=== PATIENT | male | born 1965 | race Two or more races ===

== ENCOUNTER 2021-07-21 05:01 | Inpatient (IN) | payer MEDICAID ==
[~2021-07-21] VITALS: Ht 193 cm; Wt 106.8 kg
--- NOTE | 2021-07-21 05:39 | NUR ---
pT DIFFICULT BLOOD DRAW. APPEARS TO BE DEHYDRATED. MD HANSON WAITING UNTIL PT FINISHES FLUID BOLUS FROM EMS. WYMAN WILL BE PLACED.
[2021-07-21 06:34] LABS: CLARITY,URINE SLIGHTLY CLOUDY (Clear); COLOR,URINE YELLOW (Yellow); GLUCOSE, URINE NEGATIVE (Neg); KETONES,URINE TRACE mg/dl (Neg); LEUKOCYTE ESTERASE ,URINE NEGATIVE (Neg); NITRITES, URINE NEGATIVE (Neg); OCCULT BLOOD,URINE MODERATE (Neg); PH,URINE 6.5 (4.8-8.0); PROTEIN,URINE 100 mg/dl (Neg); UA COLLECTION TYPE FOLEY CATH; UROBILINOGEN,URINE >=8.0 E.U/dL (0.2-1.0)
[2021-07-21 06:39] LABS: URINE AMPHETAMINE SCREEN POSITIVE (Neg); URINE BARBITUATE SCREEN NEGATIVE (Neg); URINE BENZODIAZEPINES SCREEN NEGATIVE (Neg); URINE CANNABINOID SCREEN NEGATIVE (Neg); URINE COCAINE SCREEN NEGATIVE (Neg); URINE METHADONE SCREEN NEGATIVE (Neg); URINE OPIATE SCREEN NEGATIVE (Neg); URINE PHENCYCLIDINE SCREEN NEGATIVE (Neg)
[2021-07-21 06:39] LABS: ALANINE AMINOTRANSFERASE 33 U/L (12-78); ALBUMIN 1.9 G/DL (3.4-5.0); ALBUMIN/GLOBULIN RATIO 0.4 (1.1-1.5); ALKALINE PHOSPHATASE 155 IU/L (46-116); ANION GAP 10 (8-16); ASPARTATE AMINO TRANSFERASE 46 U/L (10-37); BILIRUBIN,TOTAL 0.8 MG/DL (0.1-1.0); BLOOD UREA NITROGEN 13 MG/DL (7-18); CHLORIDE 94 MMOL/L (99-107); GLUCOSE 155 MG/DL (70-104); POTASSIUM 3.1 MMOL/L (3.5-5.1); SODIUM 128 MMOL/L (135-145); TOTAL CARBON DIOXIDE 23.9 MMOL/L (24-32); TOTAL PROTEIN 6.6 G/DL (6.4-8.2); eGFR 77 ML/MIN
[2021-07-21 06:46] LABS: CREATINE KINASE 333 U/L (39-308); ETHANOL < 0.010 GM/DL (0.0-0.010)
[2021-07-21 06:51] LABS: BASOPHILS % (AUTO) 0.1 % (0-1); EOSINOPHILS % (AUTO) 0 % (0-6); HEMATOCRIT 35.9 % (42.0-52.0); HEMOGLOBIN 12.1 g/dl (14.0-17.9); LYMPHOCYTES # (AUTO) 0.5 X10'3 (1.1-4.8); LYMPHOCYTES % (AUTO) 3.5 % (21-51); MEAN CORPUSCULAR HEMOGLOBIN 30.8 PG (27.0-31.0); MEAN CORPUSCULAR HGB CONC 33.5 g/dL (33.0-36.5); MEAN PLATELET VOLUME 9.2 FL (7.4-10.4); MONOCYTES # (AUTO) 0.8 X10'3 (0-0.9); NEUTROPHILS # (AUTO) 12.4 X10'3 (1.8-7.7); NEUTROPHILS % (AUTO) 90.4 % (42-75); PLATELET COUNT 245 X10'3 (140-440); RED BLOOD COUNT 3.91 X10'6 (4.70-6.10); RED CELL DISTRIBUTION WIDTH 13.5 % (11.5-14.5); WHITE BLOOD COUNT 13.7 X10'3 (4.5-11.0)
[2021-07-21 06:53] LABS: SPERM FEW /HPF (NEGATIVE)
[2021-07-21 06:54] LABS: BACTERIA,URINE FEW /HPF (Neg); SQUAMOUS EPITHELIAL CELL,UR NONE SEEN /LPF (FEW); WBC,URINE 0-4 /HPF (0-4)
--- NOTE | 2021-07-21 07:48 | NUR ---
PATIENT'S GIRLFRIEND, MIRELA MCBRIDE, WITH CONTACT NUMBER [phone]
[2021-07-21] MEDS ORDERED: mag hydrox/Alum hydrox/simeth 30ml oral suspension PO PRN (07:50)
[2021-07-21] MEDS ORDERED: potassium Cl 20 mEq SR tablet PO PRN ×2 (07:50)
[2021-07-21] MEDS ORDERED: haloperidol lactate 5mg/ml inj IM PRN (07:50)
[2021-07-21] MEDS ORDERED: magnesium 4gm in 100ml NS 100 ML IV PRN (07:50)
[2021-07-21] MEDS ORDERED: magnesium 2GM in 50ml NS 50 ML IV PRN (07:50)
[2021-07-21] MEDS ORDERED: ondansetron/PF 4mg/2ml inj IV PRN (07:50)
[2021-07-21] MEDS ORDERED: potassium Cl 40MEQ/1/2NS 520ml 520 ML IV PRN ×2 (07:50)
[2021-07-21 07:54] LABS: TOTAL CELLS COUNTED 100
[2021-07-21 07:55] LABS: PLATELET ESTIMATE NORMAL
[2021-07-21] MEDS: docusate sod 100mg capsule PO SCH ×2 (08:00→20:16)
[2021-07-21] MEDS ORDERED: folic acid inj. 2 MG, thiamine inj. 100 MG, MVI, adult No.4 with vit. K 10 ML in dextro... IV SCH ×4 (08:00)
[2021-07-21] MEDS ORDERED: thiamine inj. 100 MG in normal saline 100ml IV soln 100 ML IV ONE (08:45)
[2021-07-21 09:16] LABS: D-DIMER 5.94 MG/L FEU (0-0.50)
--- NOTE | 2021-07-21 09:56 | NUR ---
cris [phone] (sister) please call when able
[2021-07-21] MEDS ORDERED: ASPI-10 PO (10:44)
[2021-07-21] MEDS ORDERED: ATOR40TA PO (10:44)
[2021-07-21] MEDS ORDERED: FOLI0.4T6 PO (10:44)
[2021-07-21] MEDS ORDERED: KEP500T PO (10:44)
[2021-07-21] MEDS: folic acid 1mg/0.2ml inj IV SCH (10:56)
[2021-07-21] MEDS: normal saline 1000ml 1,000 ML IV SCH ×2 (10:56→20:10)
[2021-07-21] MEDS: K and/or MAG REPLACEMENT MC SCH ×2 (12:41→20:00)
--- NOTE | 2021-07-21 15:10 | NUR ---
PATIENT'S SISTER, MARU, CALLED IN FOR CONDITION REPORT.
[2021-07-21] MEDS ORDERED: enoxaparin 40mg/0.4ml syringe SQ SCH (20:00)
[2021-07-21] MEDS: acetaminophen 325mg tablet PO PRN (20:07)
[2021-07-21] MEDS: atorvastatin 20mg tablet PO SCH (20:16)
[2021-07-21] MEDS: levetiracetam 250mg tablet PO SCH (20:16)
[2021-07-21] MEDS: enoxaparin 100mg/ml syringe SQ SCH (20:17)
[2021-07-22] MEDS: normal saline 1000ml 1,000 ML IV SCH ×2 (04:33→13:50)
[2021-07-22] MEDS: acetaminophen 325mg tablet PO PRN ×2 (05:49→16:16)
[2021-07-22] MEDS: K and/or MAG REPLACEMENT MC SCH ×2 (08:00→18:47)
[2021-07-22 08:18] LABS: BASOPHILS % (AUTO) 0.2 % (0-1); EOSINOPHILS % (AUTO) 0.1 % (0-6); HEMATOCRIT 40.1 % (42.0-52.0); HEMOGLOBIN 13.3 g/dl (14.0-17.9); LYMPHOCYTES # (AUTO) 0.8 X10'3 (1.1-4.8); LYMPHOCYTES % (AUTO) 4.4 % (21-51); MEAN CORPUSCULAR HEMOGLOBIN 30.5 PG (27.0-31.0); MEAN CORPUSCULAR HGB CONC 33.1 g/dL (33.0-36.5); MEAN CORPUSCULAR VOLUME 92.2 FL (78-98); MEAN PLATELET VOLUME 9.2 FL (7.4-10.4); MONOCYTES # (AUTO) 0.8 X10'3 (0-0.9); MONOCYTES % (AUTO) 4.2 % (2-12); NEUTROPHILS # (AUTO) 17.1 X10'3 (1.8-7.7); NEUTROPHILS % (AUTO) 91.1 % (42-75); PLATELET COUNT 330 X10'3 (140-440); RED BLOOD COUNT 4.35 X10'6 (4.70-6.10); RED CELL DISTRIBUTION WIDTH 13.6 % (11.5-14.5); WHITE BLOOD COUNT 18.8 X10'3 (4.5-11.0)
[2021-07-22 08:44] LABS: ALANINE AMINOTRANSFERASE 39 U/L (12-78); ALBUMIN 1.8 G/DL (3.4-5.0); ALBUMIN/GLOBULIN RATIO 0.3 (1.1-1.5); ALKALINE PHOSPHATASE 155 IU/L (46-116); AMYLASE 36 U/L (25-115); ANION GAP 13 (8-16); ASPARTATE AMINO TRANSFERASE 74 U/L (10-37); BILIRUBIN,TOTAL 0.9 MG/DL (0.1-1.0); BLOOD UREA NITROGEN 15 MG/DL (7-18); BUN/CREATININE RATIO 13.6 (5.4-32.0); CALCIUM 7.8 MG/DL (8.5-10.1); CHLORIDE 100 MMOL/L (99-107); CHOL/HDL RATIO 5.7 (0.00-4.99); CHOLESTEROL 57 MG/DL (0-200); CREATINE KINASE 468 U/L (39-308); GLUCOSE 127 MG/DL (70-104); HDL CHOLESTEROL 10 MG/DL (35-60); LDL CHOLESTEROL 26 MG/DL (50-100); LIPASE 103 U/L (73-393); MAGNESIUM 2.1 MG/DL (1.5-2.4); PHOSPHORUS 2.3 MG/DL (2.3-4.5); POTASSIUM 3.5 MMOL/L (3.5-5.1); SODIUM 134 MMOL/L (135-145); TOTAL CARBON DIOXIDE 21.2 MMOL/L (24-32); TOTAL PROTEIN 7.3 G/DL (6.4-8.2); TRIGLYCERIDES 110 MG/DL (20-135); eGFR 69 ML/MIN
[2021-07-22 08:50] VITALS: BP 125/77
[2021-07-22 08:57] LABS: PLATELET ESTIMATE NORMAL; TOTAL CELLS COUNTED 100; TOXIC GRANULATION 3+; TOXIC VACUOLATION 3+
[2021-07-22 08:58] LABS: LARGE PLATELETS FEW
[2021-07-22] MEDS: docusate sod 100mg capsule PO SCH ×2 (10:01→20:19)
[2021-07-22] MEDS: levetiracetam 250mg tablet PO SCH ×2 (10:02→20:20)
[2021-07-22 11:00] VITALS: BP 114/71
[2021-07-22] MEDS: thiamine inj. 100 MG in normal saline 100ml IV soln 100 ML IV SCH (13:09)
--- NOTE | 2021-07-22 14:04 | NUR ---
I received telephone orders from Dr. Keller for a heart healthy diet. Patient has carotid stent and is unable to tell me where the stent was placed. His girlfriend thought it was placed at [facility]. i called [facility] [email or web address] at [facility] and they had no record of it. Dr. Keller has been notified. He wanted me to call again tomorrow since today is a holiday. color laboratory technician has also been notified.
[2021-07-22] MEDS ORDERED: POTASSIUM BICARB 20meq eff tab 20 MEQ TABLET.EFF PO PRN ×2 (14:32→14:33)
[2021-07-22] MEDS: aspirin 81mg tab.chew PO SCH (14:43)
[2021-07-22] MEDS: folic acid 1mg/0.2ml inj IV SCH (14:43)
[2021-07-22 15:00] VITALS: BP 148/79
[2021-07-22] MEDS: CefTRIAXone/D5W-Rocephin 1gm 50 ML IV SCH (16:42)
[2021-07-22 18:00] VITALS: BP 130/92
--- NOTE | 2021-07-22 18:00 | NUR ---
Patient in room PCU 3017. I have received report from Nava COPPOLA and had the opportunity to ask questions and assume patient care.
--- NOTE | 2021-07-22 18:27 | NUR ---
Problems reprioritized. Patient report given, questions answered & plan of care reviewed with Freya COPPOLA.
[2021-07-22] MEDS: enoxaparin 100mg/ml syringe SQ SCH (20:20)
[2021-07-22] MEDS: atorvastatin 20mg tablet PO SCH (20:20)
[2021-07-22 22:00] VITALS: BP 136/92
[2021-07-23] MEDS: normal saline 1000ml 1,000 ML IV SCH ×2 (00:01→07:49)
[2021-07-23] MEDS: LORazepam 2 mg/ml vial IV PRN ×2 (00:10→05:03)
[2021-07-23 02:00] VITALS: BP 139/77
[2021-07-23] MEDS ORDERED: acetaminophen 325mg tablet PO ONE (05:05)
[2021-07-23] MEDS ORDERED: acetaminophen 1,000mg/100ml IV 100 ML IV PRN (05:30)
--- NOTE | 2021-07-23 05:35 | NUR ---
at 0500 patient has temp of 103.1F pulse of 131 bp 163/92. patient shaking and breathing at 36bpm. 02 at 91%. patient given 1gram acetaminophen per md order, ativan 2mg IVP and haldol 5mg IM. at 0515 restraints applied to BUE because began to tug at castillo and yanked out IV. cold packs applied to patient, patient placed on 4L NC at 95% and covers and sheets removed. attempt to reorient and reassure patient. pupils PERRLA patient awakes to name, tremors present. order obtained for BUE restraints. MD notified
--- NOTE | 2021-07-23 05:53 | NUR ---
patient sedated no longer tremring , restraints removed vitals improving temp 101.2F 118bpm 24bpm 117/69 94% on 4L NC.
--- NOTE | 2021-07-23 05:59 | NUR ---
pulse 105 patient sedated, restraints remain off.
--- NOTE | 2021-07-23 06:10 | NUR ---
Patient in room PCU 3017. I have received report from Freya COPPOLA and had the opportunity to ask questions and assume patient care.
[2021-07-23 06:48] LABS: BASOPHILS % (AUTO) 0.1 % (0-1); EOSINOPHILS % (AUTO) 0.1 % (0-6); HEMATOCRIT 34.9 % (42.0-52.0); HEMOGLOBIN 11.7 g/dl (14.0-17.9); LYMPHOCYTES # (AUTO) 0.7 X10'3 (1.1-4.8); LYMPHOCYTES % (AUTO) 4.2 % (21-51); MEAN CORPUSCULAR HEMOGLOBIN 31.1 PG (27.0-31.0); MEAN CORPUSCULAR HGB CONC 33.6 g/dL (33.0-36.5); MEAN CORPUSCULAR VOLUME 92.7 FL (78-98); MONOCYTES # (AUTO) 0.7 X10'3 (0-0.9); MONOCYTES % (AUTO) 4.4 % (2-12); NEUTROPHILS # (AUTO) 14.8 X10'3 (1.8-7.7); NEUTROPHILS % (AUTO) 91.2 % (42-75); PLATELET COUNT 287 X10'3 (140-440); RED BLOOD COUNT 3.76 X10'6 (4.70-6.10); RED CELL DISTRIBUTION WIDTH 13.8 % (11.5-14.5); WHITE BLOOD COUNT 16.2 X10'3 (4.5-11.0)
[2021-07-23 07:00] VITALS: BP 115/68
[2021-07-23] MEDS: docusate sod 100mg capsule PO SCH ×2 (07:48→20:25)
[2021-07-23] MEDS: levetiracetam 250mg tablet PO SCH ×2 (07:48→20:25)
[2021-07-23] MEDS: thiamine inj. 100 MG in normal saline 100ml IV soln 100 ML IV SCH (07:48)
[2021-07-23] MEDS: CefTRIAXone/D5W-Rocephin 1gm 50 ML IV SCH (07:48)
[2021-07-23] MEDS: aspirin 81mg tab.chew PO SCH (07:48)
[2021-07-23] MEDS: K and/or MAG REPLACEMENT MC SCH ×2 (08:00→20:24)
[2021-07-23] MEDS: folic acid 1mg/0.2ml inj IV SCH (08:30)
[2021-07-23 10:21] LABS: ALANINE AMINOTRANSFERASE 54 U/L (12-78); ALBUMIN 1.5 G/DL (3.4-5.0); ALBUMIN/GLOBULIN RATIO 0.3 (1.1-1.5); ALKALINE PHOSPHATASE 158 IU/L (46-116); AMYLASE 35 U/L (25-115); ANION GAP 11 (8-16); ASPARTATE AMINO TRANSFERASE 109 U/L (10-37); BILIRUBIN,TOTAL 0.6 MG/DL (0.1-1.0); BLOOD UREA NITROGEN 20 MG/DL (7-18); BUN/CREATININE RATIO 15.5 (5.4-32.0); CALCIUM 7.2 MG/DL (8.5-10.1); CHLORIDE 100 MMOL/L (99-107); CREATINE KINASE 255 U/L (39-308); CREATININE 1.29 MG/DL (0.60-1.10); GLUCOSE 147 MG/DL (70-104); LIPASE 112 U/L (73-393); MAGNESIUM 2.1 MG/DL (1.5-2.4); PHOSPHORUS 2.2 MG/DL (2.3-4.5); POTASSIUM 3.5 MMOL/L (3.5-5.1); SODIUM 134 MMOL/L (135-145); TOTAL CARBON DIOXIDE 23.1 MMOL/L (24-32); TOTAL PROTEIN 6.9 G/DL (6.4-8.2); eGFR 58 ML/MIN
[2021-07-23 12:00] VITALS: BP 140/83
--- NOTE | 2021-07-23 13:39 | NUR ---
PAGER ID: [phone] MESSAGE: TOY on [phone], ON MY END IT SHOWS THAT CTA WAS CANCELLED PER DR. RALPH, PATIENT UNABLE TO HOLD STILL. DO YOU WANT TO REORDER CTA
[2021-07-23 15:00] VITALS: BP 131/82
[2021-07-23] MEDS ORDERED: iohexol 350MG/ML 100ml bottle IV ONE (15:58)
[2021-07-23 18:00] VITALS: BP 119/71
--- NOTE | 2021-07-23 18:00 | NUR ---
Patient in room PCU 3017. I have received report from naveen chacko and had the opportunity to ask questions and assume patient care.
--- NOTE | 2021-07-23 18:26 | NUR ---
Problems reprioritized. Patient report given, questions answered & plan of care reviewed with Freya COPPOLA.
--- NOTE | 2021-07-23 20:15 | NUR ---
patient resltess, ativan 2mg IV dc'd MD mata notified, patient given 1500cc cold water, patient drinks wuickly. sheets removed, patient reassured. orders ativan 1mg [id number] states that she will put in the order. labs reviewed with md joce boyd dimer 5.94 wbc 16.2 hb 11.7 pt 132. inr 1.3. reviews ct, no new orders given other than ativan order
[2021-07-23] MEDS: enoxaparin 40mg/0.4ml syringe SQ SCH (20:25)
[2021-07-23] MEDS: atorvastatin 20mg tablet PO SCH (20:26)
[2021-07-23] MEDS: lactobacillus rhamnosus 10,000 MMU CELLS/CAPSULE PO SCH (20:26)
[2021-07-23] MEDS: haloperidol 5mg tablet PO PRN (20:27)
[2021-07-23] MEDS: acetaminophen 325mg tablet PO PRN (21:27)
[2021-07-24] VITALS (7 sets, daily range): BP systolic 123–180; BP diastolic 84–104
[2021-07-24] MEDS: acetaminophen 325mg tablet PO PRN ×3 (02:41→13:15)
[2021-07-24] MEDS: haloperidol 5mg tablet PO PRN ×2 (02:41→08:00)
--- NOTE | 2021-07-24 03:08 | NUR ---
temp at 100.8 patient slightly restless, acetaminophen given and haloperidal 650mg PO. patient given 800cc water and two cups of jell o
[2021-07-24] MEDS: normal saline 1000ml 1,000 ML IV SCH (04:17)
[2021-07-24 06:03] LABS: BASOPHILS % (AUTO) 0.3 % (0-1); EOSINOPHILS % (AUTO) 0.2 % (0-6); HEMATOCRIT 33.1 % (42.0-52.0); LYMPHOCYTES # (AUTO) 0.9 X10'3 (1.1-4.8); LYMPHOCYTES % (AUTO) 5.8 % (21-51); MEAN CORPUSCULAR HEMOGLOBIN 30.7 PG (27.0-31.0); MEAN CORPUSCULAR HGB CONC 33.1 g/dL (33.0-36.5); MEAN CORPUSCULAR VOLUME 92.7 FL (78-98); MEAN PLATELET VOLUME 9.3 FL (7.4-10.4); MONOCYTES # (AUTO) 0.7 X10'3 (0-0.9); MONOCYTES % (AUTO) 4.6 % (2-12); NEUTROPHILS # (AUTO) 14.5 X10'3 (1.8-7.7); NEUTROPHILS % (AUTO) 89.1 % (42-75); PLATELET COUNT 305 X10'3 (140-440); RED BLOOD COUNT 3.57 X10'6 (4.70-6.10); WHITE BLOOD COUNT 16.2 X10'3 (4.5-11.0)
[2021-07-24 06:20] LABS: ALANINE AMINOTRANSFERASE 45 U/L (12-78); ALBUMIN 1.4 G/DL (3.4-5.0); ALBUMIN/GLOBULIN RATIO 0.3 (1.1-1.5); ALKALINE PHOSPHATASE 161 IU/L (46-116); AMYLASE 33 U/L (25-115); ANION GAP 9 (8-16); ASPARTATE AMINO TRANSFERASE 75 U/L (10-37); BILIRUBIN,TOTAL 0.7 MG/DL (0.1-1.0); BLOOD UREA NITROGEN 17 MG/DL (7-18); BUN/CREATININE RATIO 16.3 (5.4-32.0); CALCIUM 7.3 MG/DL (8.5-10.1); CHLORIDE 103 MMOL/L (99-107); CREATINE KINASE 188 U/L (39-308); CREATININE 1.04 MG/DL (0.60-1.10); GLUCOSE 154 MG/DL (70-104); LIPASE 102 U/L (73-393); MAGNESIUM 2.1 MG/DL (1.5-2.4); POTASSIUM 3.4 MMOL/L (3.5-5.1); SODIUM 136 MMOL/L (135-145); TOTAL CARBON DIOXIDE 23.9 MMOL/L (24-32); TOTAL PROTEIN 6.8 G/DL (6.4-8.2); eGFR 74 ML/MIN
[2021-07-24] MEDS: thiamine inj. 100 MG in normal saline 100ml IV soln 100 ML IV SCH (08:00)
[2021-07-24] MEDS: docusate sod 100mg capsule PO SCH ×2 (08:00→20:00)
[2021-07-24] MEDS: levetiracetam 250mg tablet PO SCH ×2 (08:00→21:03)
[2021-07-24] MEDS: K and/or MAG REPLACEMENT MC SCH ×2 (08:00→20:00)
[2021-07-24] MEDS: aspirin 81mg tab.chew PO SCH (08:00)
[2021-07-24] MEDS: lactobacillus rhamnosus 10,000 MMU CELLS/CAPSULE PO SCH ×2 (08:00→21:04)
[2021-07-24] MEDS: CefTRIAXone/D5W-Rocephin 1gm 50 ML IV SCH (10:35)
[2021-07-24] MEDS: folic acid 1mg/0.2ml inj IV SCH (11:24)
--- NOTE | 2021-07-24 11:34 | NUR ---
PAGER ID: [phone] MESSAGE: Room 3017A. Tylenol did not help - ax temp 102.7. Cooling measures in place. Wanda? Thanks, Shanon [phone]
--- NOTE | 2021-07-24 12:50 | NUR ---
Per MD - reorder covid test PCR send out. Ordered but was processed as rapid which is negative - reordered send out. Pending results.
[2021-07-24] MEDS ORDERED: potassium Cl 40MEQ/1/2NS 520ml 520 ML IV PRN (13:35)
[2021-07-24] MEDS ORDERED: POTASSIUM BICARB 20meq eff tab 20 MEQ TABLET.EFF PO PRN ×2 (13:35)
[2021-07-24] MEDS: LORazepam 2 mg/ml vial IV PRN ×2 (17:25→23:06)
--- NOTE | 2021-07-24 18:30 | NUR ---
rickey concepcion picked up prior to shift change; pt not able to report what he ate Addendum: 07/25/21 at 0450 by Carolyn Sanchez RN Amended: Links added.
--- NOTE | 2021-07-24 19:23 | NUR ---
Hourly rounding throughout shift - pt is able to repositions self throughout shift.
--- NOTE | 2021-07-24 19:24 | NUR ---
Problems reprioritized. Patient report given, questions answered & plan of care reviewed with Evelyne RN.
[2021-07-24] MEDS: atorvastatin 20mg tablet PO SCH (21:04)
[2021-07-24] MEDS: enoxaparin 40mg/0.4ml syringe SQ SCH (21:05)
[2021-07-25] MEDS: normal saline 1000ml 1,000 ML IV SCH ×2 (00:17→15:31)
[2021-07-25 02:30] VITALS: BP 149/90
[2021-07-25] MEDS: acetaminophen 325mg tablet PO PRN (02:48)
[2021-07-25] MEDS: LORazepam 2 mg/ml vial IV PRN (03:04)
[2021-07-25 06:03] LABS: BASOPHILS # (AUTO) 0.1 X10'3 (0-0.2); BASOPHILS % (AUTO) 0.6 % (0-1); EOSINOPHILS % (AUTO) 0.1 % (0-6); HEMATOCRIT 35.7 % (42.0-52.0); HEMOGLOBIN 11.7 g/dl (14.0-17.9); LYMPHOCYTES % (AUTO) 4.9 % (21-51); MEAN CORPUSCULAR HEMOGLOBIN 30.7 PG (27.0-31.0); MEAN CORPUSCULAR HGB CONC 32.7 g/dL (33.0-36.5); MEAN CORPUSCULAR VOLUME 93.8 FL (78-98); MEAN PLATELET VOLUME 9.2 FL (7.4-10.4); MONOCYTES # (AUTO) 0.9 X10'3 (0-0.9); MONOCYTES % (AUTO) 4.6 % (2-12); NEUTROPHILS # (AUTO) 17.6 X10'3 (1.8-7.7); NEUTROPHILS % (AUTO) 89.8 % (42-75); PLATELET COUNT 345 X10'3 (140-440); RED BLOOD COUNT 3.81 X10'6 (4.70-6.10); RED CELL DISTRIBUTION WIDTH 14.1 % (11.5-14.5); WHITE BLOOD COUNT 19.7 X10'3 (4.5-11.0)
[2021-07-25 06:34] LABS: ALANINE AMINOTRANSFERASE 43 U/L (12-78); ALBUMIN 1.4 G/DL (3.4-5.0); ALBUMIN/GLOBULIN RATIO 0.2 (1.1-1.5); ALKALINE PHOSPHATASE 148 IU/L (46-116); AMYLASE 38 U/L (25-115); ANION GAP 11 (8-16); ASPARTATE AMINO TRANSFERASE 75 U/L (10-37); BILIRUBIN,TOTAL 0.9 MG/DL (0.1-1.0); BLOOD UREA NITROGEN 20 MG/DL (7-18); BUN/CREATININE RATIO 21.1 (5.4-32.0); CALCIUM 7.3 MG/DL (8.5-10.1); CHLORIDE 105 MMOL/L (99-107); CREATININE 0.95 MG/DL (0.60-1.10); GLUCOSE 118 MG/DL (70-104); LIPASE 91 U/L (73-393); MAGNESIUM 2.2 MG/DL (1.5-2.4); PHOSPHORUS 3.9 MG/DL (2.3-4.5); POTASSIUM 3.6 MMOL/L (3.5-5.1); SODIUM 140 MMOL/L (135-145); TOTAL CARBON DIOXIDE 24.1 MMOL/L (24-32); TOTAL PROTEIN 7.5 G/DL (6.4-8.2); eGFR 82 ML/MIN
[2021-07-25 07:00] VITALS: BP 155/99
[2021-07-25] MEDS: K and/or MAG REPLACEMENT MC SCH ×2 (08:00→20:00)
--- NOTE | 2021-07-25 09:30 | NUR ---
Dr. Willams to see pt. pt cont. obtunded. RR tachypnic per baseline. new orders for ABG stat, CXR stat. pt positioned semi folHARRISON summers at 45 degrees.
[2021-07-25] MEDS: folic acid 1mg/0.2ml inj IV SCH (09:37)
[2021-07-25] MEDS: CefTRIAXone/D5W-Rocephin 1gm 50 ML IV SCH (09:38)
[2021-07-25] MEDS: lactobacillus rhamnosus 10,000 MMU CELLS/CAPSULE PO SCH ×2 (09:38→21:42)
[2021-07-25] MEDS: aspirin 81mg tab.chew PO SCH (09:38)
[2021-07-25] MEDS: docusate sod 100mg capsule PO SCH ×2 (09:38→21:42)
[2021-07-25] MEDS: levetiracetam 250mg tablet PO SCH ×2 (09:38→21:42)
--- NOTE | 2021-07-25 10:11 | NUR ---
RT paged. "re: Roderick Mcmullen: [id number]: Magu order stat ABG and stat breath tx. CXR just completed. pt RR 32/4LPM/NC/O2. Thanks,Una LUI"
--- NOTE | 2021-07-25 10:24 | NUR ---
Paged Dr. Willams d/t breathing tx: RT unable to give. PAGER ID: [phone] MESSAGE: RE: Roderick Mcmullen: [id number]: Per RT, breathing tx can not be done on pt's with pending covid tests for R/O covid, due to breathing tx could spread COVID virus if pt positive. -Please AdviseUna #[phone]
[2021-07-25 10:38] LABS: ABG BASE EXCESS 1.2 mmol/L (-2.0-2.0); ABG HCO3 22.8 mmol/L (22.0-26.0); ABG OXYGEN SATURATION 94.5 % (94-97); ABG PCO2 (T) 28.2 mmHg (35.0-48.0); ABG PO2 (T) 72.6 mmHg (75.0-100.0); ALLEN'S TEST POSITIVE; FCOHb 0.3 % (0.0-3.9); FLOW 4 L/min; FMetHb 0.4 % (0.0-1.5); FO2Hb 93.8 % (94-97); PATIENT TEMPERATURE 37.3; TOTAL HEMOGLOBIN 12.7 G/dl (14.0-18.0)
[2021-07-25 10:49] LABS: LACTIC SEPSIS 2.6 MMOL/L (0.4-2.0)
[2021-07-25 11:00] VITALS: BP 139/79
--- NOTE | 2021-07-25 11:18 | NUR ---
Initial: Pt admitted w/ worsening confusion and weakness per EMR. RN reports pt is obtunded at times though alert during others. Pt is mostly able to feed themselves but may need assistance occasionally; pt does have R sided weakness per RN. Pt able to eat avg 47% x 6 meals on Heart Healthy/SB6 diet, though was up to 75% 07/24. LBM 07/24 noted to be liquid. No nutritional intervention at this time, will continue to monitor. Recs: 1. Continue Heart healthy/SB6 thins diet as tolerated; texture per ST 2. Bowel care per rx 3. Weekly wts Addendum: 07/25/21 at [address] Amended: Links added.
[2021-07-25] MEDS: thiamine inj. 100 MG in normal saline 100ml IV soln 100 ML IV SCH (11:28)
[2021-07-25 15:00] VITALS: BP 140/72
[2021-07-25 15:18] LABS: CLARITY,URINE SLIGHTLY CLOUDY (Clear); COLOR,URINE YELLOW (Yellow); GLUCOSE, URINE NEGATIVE (Neg); KETONES,URINE NEGATIVE (Neg); LEUKOCYTE ESTERASE ,URINE NEGATIVE (Neg); NITRITES, URINE NEGATIVE (Neg); OCCULT BLOOD,URINE MODERATE (Neg); PROTEIN,URINE 30 mg/dl (Neg)
[2021-07-25 15:21] LABS: BACTERIA,URINE NONE SEEN /HPF (Neg); MUCUS STRANDS FEW /LPF (Neg); RENAL CELLS, URINE FEW /HPF; SQUAMOUS EPITHELIAL CELL,UR FEW /LPF (FEW); UA COLLECTION TYPE FOLEY CATH; WBC,URINE 0-4 /HPF (0-4)
[2021-07-25 18:00] VITALS: BP 150/97
--- NOTE | 2021-07-25 18:08 | NUR ---
Patient in room PCU 3017. I have received report from Evelyne RN and had the opportunity to ask questions and assume patient care.
--- NOTE | 2021-07-25 18:38 | NUR ---
Problems reprioritized. Patient report given, questions answered & plan of care reviewed with Viktoriya COPPOLA. Pt alert at this time, high fowlers, supported with pillows, breathing tachypnic at baseline, /4LPM. pt working on dinner independently. no s/sx acute distress
--- NOTE | 2021-07-25 19:01 | NUR ---
Patient in room PCU 3017. I have received report from DAVIDE COPPOLA and had the opportunity to ask questions and assume patient care.
[2021-07-25] MEDS: albuterol 2.5 MG/3 ML nebule NEB SCH (20:00)
[2021-07-25] MEDS: atorvastatin 20mg tablet PO SCH (21:42)
[2021-07-25] MEDS: enoxaparin 40mg/0.4ml syringe SQ SCH (21:43)
[2021-07-25] MEDS: methylPREDNISolone sod succ 125mg/2ml vial IV SCH (21:43)
[2021-07-25 22:00] VITALS: BP 146/89
[2021-07-26] MEDS: albuterol 2.5 MG/3 ML nebule NEB SCH ×7 (00:31→23:16)
[2021-07-26] MEDS: normal saline 1000ml 1,000 ML IV SCH ×3 (00:45→23:30)
[2021-07-26 02:00] VITALS: BP 139/86
[2021-07-26 06:00] VITALS: BP 157/98
--- NOTE | 2021-07-26 06:25 | NUR ---
Problems reprioritized. Patient report given, questions answered & plan of care reviewed with DANIEL COPPOLA.
--- NOTE | 2021-07-26 06:30 | NUR ---
Patient in room PCU 3017. I have received report from ANAT Sadler and had the opportunity to ask questions and assume patient care.
[2021-07-26 06:52] LABS: BASOPHILS # (AUTO) 0.1 X10'3 (0-0.2); BASOPHILS % (AUTO) 0.3 % (0-1); EOSINOPHILS % (AUTO) 0 % (0-6); HEMATOCRIT 34.5 % (42.0-52.0); HEMOGLOBIN 11.4 g/dl (14.0-17.9); LYMPHOCYTES # (AUTO) 0.4 X10'3 (1.1-4.8); LYMPHOCYTES % (AUTO) 2.3 % (21-51); MEAN CORPUSCULAR HEMOGLOBIN 30.6 PG (27.0-31.0); MEAN CORPUSCULAR HGB CONC 33.2 g/dL (33.0-36.5); MEAN CORPUSCULAR VOLUME 92.3 FL (78-98); MEAN PLATELET VOLUME 9.1 FL (7.4-10.4); MONOCYTES # (AUTO) 0.3 X10'3 (0-0.9); MONOCYTES % (AUTO) 1.6 % (2-12); NEUTROPHILS # (AUTO) 17.1 X10'3 (1.8-7.7); NEUTROPHILS % (AUTO) 95.8 % (42-75); PLATELET COUNT 347 X10'3 (140-440); RED BLOOD COUNT 3.74 X10'6 (4.70-6.10); WHITE BLOOD COUNT 17.8 X10'3 (4.5-11.0)
[2021-07-26 07:21] LABS: ALANINE AMINOTRANSFERASE 46 U/L (12-78); ALBUMIN 1.3 G/DL (3.4-5.0); ALBUMIN/GLOBULIN RATIO 0.2 (1.1-1.5); ALKALINE PHOSPHATASE 135 IU/L (46-116); AMYLASE 31 U/L (25-115); ANION GAP 8 (8-16); ASPARTATE AMINO TRANSFERASE 79 U/L (10-37); BILIRUBIN,TOTAL 0.8 MG/DL (0.1-1.0); BLOOD UREA NITROGEN 22 MG/DL (7-18); BUN/CREATININE RATIO 28.2 (5.4-32.0); CALCIUM 7.3 MG/DL (8.5-10.1); CHLORIDE 104 MMOL/L (99-107); CREATININE 0.78 MG/DL (0.60-1.10); GLUCOSE 149 MG/DL (70-104); LIPASE 72 U/L (73-393); MAGNESIUM 2.1 MG/DL (1.5-2.4); PHOSPHORUS 4.2 MG/DL (2.3-4.5); POTASSIUM 4.2 MMOL/L (3.5-5.1); SODIUM 134 MMOL/L (135-145); TOTAL CARBON DIOXIDE 22.5 MMOL/L (24-32); TOTAL PROTEIN 7.4 G/DL (6.4-8.2); eGFR > 90 ML/MIN
[2021-07-26] MEDS: LORazepam 2 mg/ml vial IV PRN (07:34)
[2021-07-26] MEDS: docusate sod 100mg capsule PO SCH ×2 (08:00→21:00)
[2021-07-26] MEDS: K and/or MAG REPLACEMENT MC SCH ×2 (08:00→20:00)
[2021-07-26] MEDS: azithromycin/NS 500mg/250ml 250 ML IV SCH (09:25)
[2021-07-26] MEDS: folic acid 1mg/0.2ml inj IV SCH (09:25)
[2021-07-26] MEDS: thiamine inj. 100 MG in normal saline 100ml IV soln 100 ML IV SCH (09:25)
[2021-07-26] MEDS: methylPREDNISolone sod succ 125mg/2ml vial IV SCH ×2 (09:26→21:35)
[2021-07-26] MEDS: lactobacillus rhamnosus 10,000 MMU CELLS/CAPSULE PO SCH ×2 (09:26→21:34)
[2021-07-26] MEDS: levetiracetam 250mg tablet PO SCH ×2 (09:26→21:33)
[2021-07-26] MEDS: CefTRIAXone/D5W-Rocephin 1gm 50 ML IV SCH (09:26)
[2021-07-26] MEDS: aspirin 81mg tab.chew PO SCH (09:26)
[2021-07-26 09:41] LABS: CREATINE KINASE 186 U/L (39-308)
[2021-07-26 11:00] VITALS: BP 132/87
[2021-07-26 15:00] VITALS: BP 132/90
[2021-07-26 18:00] VITALS: BP 138/68
--- NOTE | 2021-07-26 18:48 | NUR ---
Problems reprioritized. Patient report given, questions answered & plan of care reviewed with ANAT Watkins.
[2021-07-26] MEDS: atorvastatin 20mg tablet PO SCH (21:34)
[2021-07-26] MEDS: enoxaparin 40mg/0.4ml syringe SQ SCH (21:40)
[2021-07-26 22:00] VITALS: BP 135/88
[2021-07-27 03:00] VITALS: BP 128/87
[2021-07-27] MEDS: albuterol 2.5 MG/3 ML nebule NEB SCH ×2 (03:07→08:18)
--- NOTE | 2021-07-27 03:07 | NUR ---
reviewed and edited assessment
[2021-07-27] MEDS: normal saline 1000ml 1,000 ML IV SCH ×2 (06:45→16:58)
--- NOTE | 2021-07-27 06:46 | NUR ---
Problems reprioritized. Patient report given, questions answered & plan of care reviewed with ANAT Mccoy.
[2021-07-27 07:00] VITALS: BP 136/84
[2021-07-27] MEDS: K and/or MAG REPLACEMENT MC SCH ×2 (08:00→20:00)
[2021-07-27] MEDS: docusate sod 100mg capsule PO SCH ×2 (08:00→21:22)
[2021-07-27] MEDS: lactobacillus rhamnosus 10,000 MMU CELLS/CAPSULE PO SCH ×2 (08:00→21:21)
[2021-07-27] MEDS: aspirin 81mg tab.chew PO SCH (08:00)
--- NOTE | 2021-07-27 08:04 | NUR ---
Patient in room PCU 3017. I have received report from June COPPOLA and had the opportunity to ask questions and assume patient care.
[2021-07-27] MEDS: folic acid 1mg/0.2ml inj IV SCH (09:11)
[2021-07-27] MEDS: thiamine inj. 100 MG in normal saline 100ml IV soln 100 ML IV SCH (09:16)
[2021-07-27] MEDS: methylPREDNISolone sod succ 125mg/2ml vial IV SCH ×2 (09:16→21:21)
[2021-07-27] MEDS: CefTRIAXone/D5W-Rocephin 1gm 50 ML IV SCH (09:17)
[2021-07-27] MEDS: levetiracetam 250mg tablet PO SCH ×2 (09:35→21:20)
--- NOTE | 2021-07-27 09:51 | NUR ---
Problems reprioritized. Patient report given, questions answered & plan of care reviewed with Sara COPPOLA.
--- NOTE | 2021-07-27 09:55 | NUR ---
Dr. Willams at bedside with patient and nurse. New Order, DC Olmedo catheter and monitor urination, Add A1c to check levels, Neuro Q4 to MD Miranda is aware of high blood sugars and does not want to continue to check until A1c lab is reviewed. Pt has no history of DM and is able to eat and drinl by self. We will continue to monitor.
[2021-07-27 10:14] LABS: BASOPHILS # (AUTO) 0.1 X10'3 (0-0.2); BASOPHILS % (AUTO) 0.4 % (0-1); EOSINOPHILS % (AUTO) 0 % (0-6); HEMATOCRIT 31.7 % (42.0-52.0); HEMOGLOBIN 10.6 g/dl (14.0-17.9); LYMPHOCYTES # (AUTO) 0.7 X10'3 (1.1-4.8); LYMPHOCYTES % (AUTO) 4.8 % (21-51); MEAN CORPUSCULAR HEMOGLOBIN 30.8 PG (27.0-31.0); MEAN CORPUSCULAR HGB CONC 33.4 g/dL (33.0-36.5); MEAN CORPUSCULAR VOLUME 92.2 FL (78-98); MEAN PLATELET VOLUME 8.7 FL (7.4-10.4); MONOCYTES # (AUTO) 0.3 X10'3 (0-0.9); MONOCYTES % (AUTO) 2.5 % (2-12); NEUTROPHILS # (AUTO) 12.8 X10'3 (1.8-7.7); NEUTROPHILS % (AUTO) 92.3 % (42-75); PLATELET COUNT 365 X10'3 (140-440); RED BLOOD COUNT 3.44 X10'6 (4.70-6.10); RED CELL DISTRIBUTION WIDTH 13.8 % (11.5-14.5); WHITE BLOOD COUNT 13.8 X10'3 (4.5-11.0)
[2021-07-27 10:28] LABS: ALANINE AMINOTRANSFERASE 72 U/L (12-78); ALBUMIN 1.2 G/DL (3.4-5.0); ALBUMIN/GLOBULIN RATIO 0.2 (1.1-1.5); ALKALINE PHOSPHATASE 119 IU/L (46-116); ANION GAP 12 (8-16); ASPARTATE AMINO TRANSFERASE 77 U/L (10-37); BILIRUBIN,TOTAL 0.4 MG/DL (0.1-1.0); BLOOD UREA NITROGEN 24 MG/DL (7-18); BUN/CREATININE RATIO 28.2 (5.4-32.0); CALCIUM 7.4 MG/DL (8.5-10.1); CHLORIDE 108 MMOL/L (99-107); CREATININE 0.85 MG/DL (0.60-1.10); GLUCOSE 216 MG/DL (70-104); POTASSIUM 3.9 MMOL/L (3.5-5.1); SODIUM 142 MMOL/L (135-145); TOTAL CARBON DIOXIDE 22.5 MMOL/L (24-32); TOTAL PROTEIN 6.9 G/DL (6.4-8.2); eGFR > 90 ML/MIN
[2021-07-27 11:00] VITALS: BP 144/77
[2021-07-27] MEDS: azithromycin/NS 500mg/250ml 250 ML IV SCH (11:34)
--- NOTE | 2021-07-27 11:54 | NUR ---
PAGER ID: [phone] MESSAGE: sara chacko [phone] RE: Vivek Gomez [id number]. Pt refusing all care at this time. Pt trying to kick [facility] staff. Thank you Addendum: 07/27/21 at 1156 by Sara Lucero RN Disregard wrong patient
[2021-07-27] MEDS ORDERED: albuterol 2.5 MG/3 ML nebule NEB PRN (12:05)
[2021-07-27 15:00] VITALS: BP 141/90
[2021-07-27 18:00] VITALS: BP 145/80
--- NOTE | 2021-07-27 18:14 | NUR ---
Problems reprioritized. Patient report given, questions answered & plan of care reviewed with harjinder grande rn.
--- NOTE | 2021-07-27 18:30 | NUR ---
Patient in room PCU 3017. I have received report from CAREY COPPOLA and had the opportunity to ask questions and assume patient care.
[2021-07-27] MEDS: atorvastatin 20mg tablet PO SCH (21:20)
[2021-07-27] MEDS: enoxaparin 40mg/0.4ml syringe SQ SCH (21:22)
[2021-07-27 22:00] VITALS: BP 135/79
[2021-07-28] MEDS: normal saline 1000ml 1,000 ML IV SCH ×3 (00:32→20:37)
[2021-07-28 02:00] VITALS: BP 152/93
--- NOTE | 2021-07-28 06:30 | NUR ---
Problems reprioritized. Patient report given, questions answered & plan of care reviewed with JEFFRY COPPOLA.
[2021-07-28] MEDS: K and/or MAG REPLACEMENT MC SCH ×2 (08:00→20:00)
[2021-07-28] MEDS: aspirin 81mg tab.chew PO SCH (08:57)
[2021-07-28] MEDS: CefTRIAXone/D5W-Rocephin 1gm 50 ML IV SCH (08:57)
[2021-07-28] MEDS: azithromycin/NS 500mg/250ml 250 ML IV SCH (08:57)
[2021-07-28] MEDS: docusate sod 100mg capsule PO SCH ×2 (08:57→20:25)
[2021-07-28] MEDS: levetiracetam 250mg tablet PO SCH ×2 (08:57→20:24)
[2021-07-28] MEDS: thiamine inj. 100 MG in normal saline 100ml IV soln 100 ML IV SCH (08:57)
[2021-07-28] MEDS: folic acid 1mg/0.2ml inj IV SCH (08:58)
[2021-07-28] MEDS: methylPREDNISolone sod succ 125mg/2ml vial IV SCH ×2 (08:58→20:24)
[2021-07-28] MEDS: lactobacillus rhamnosus 10,000 MMU CELLS/CAPSULE PO SCH ×2 (08:59→20:25)
[2021-07-28 11:00] VITALS: BP 137/83
--- NOTE | 2021-07-28 11:56 | NUR ---
Patient in room U 3017. I have received report from Viktoriya Sadler RN and had the opportunity to ask questions and assume patient care. Addendum: 07/28/21 at 1157 by Mallika German RN [id number] received report.
[2021-07-28 15:22] VITALS: BP 146/93
[2021-07-28 18:00] VITALS: BP 157/85
--- NOTE | 2021-07-28 18:16 | NUR ---
Patient in room PCU 3017E. I have received report from ANAT Tena and had the opportunity to ask questions and assume patient care.
--- NOTE | 2021-07-28 18:25 | NUR ---
Problems reprioritized. Patient report given, questions answered & plan of care reviewed with Gabi COPPOLA.
[2021-07-28] MEDS: atorvastatin 20mg tablet PO SCH (20:25)
[2021-07-28] MEDS: enoxaparin 40mg/0.4ml syringe SQ SCH (20:26)
[2021-07-28 22:00] VITALS: BP 154/97
--- NOTE | 2021-07-29 06:12 | NUR ---
Problems reprioritized. Patient report given, questions answered & plan of care reviewed with ANAT Fraire.
--- NOTE | 2021-07-29 06:33 | NUR ---
Patient in room PCU 3017. I have received report from Gabi COPPOLA and had the opportunity to ask questions and assume patient care.
[2021-07-29 07:00] VITALS: BP 144/97
[2021-07-29 07:30] LABS: BASOPHILS % (AUTO) 0.2 % (0-1); EOSINOPHILS % (AUTO) 0 % (0-6); HEMATOCRIT 36.2 % (42.0-52.0); HEMOGLOBIN 11.9 g/dl (14.0-17.9); LYMPHOCYTES # (AUTO) 1.1 X10'3 (1.1-4.8); LYMPHOCYTES % (AUTO) 8.5 % (21-51); MEAN CORPUSCULAR HEMOGLOBIN 30.8 PG (27.0-31.0); MEAN CORPUSCULAR HGB CONC 32.9 g/dL (33.0-36.5); MEAN CORPUSCULAR VOLUME 93.6 FL (78-98); MEAN PLATELET VOLUME 8.8 FL (7.4-10.4); MONOCYTES # (AUTO) 0.4 X10'3 (0-0.9); MONOCYTES % (AUTO) 2.9 % (2-12); NEUTROPHILS # (AUTO) 11.4 X10'3 (1.8-7.7); NEUTROPHILS % (AUTO) 88.4 % (42-75); PLATELET COUNT 442 X10'3 (140-440); RED BLOOD COUNT 3.87 X10'6 (4.70-6.10); RED CELL DISTRIBUTION WIDTH 13.5 % (11.5-14.5); WHITE BLOOD COUNT 12.9 X10'3 (4.5-11.0)
[2021-07-29 07:47] LABS: ALANINE AMINOTRANSFERASE 84 U/L (12-78); ALBUMIN 1.5 G/DL (3.4-5.0); ALBUMIN/GLOBULIN RATIO 0.3 (1.1-1.5); ALKALINE PHOSPHATASE 114 IU/L (46-116); ANION GAP 10 (8-16); ASPARTATE AMINO TRANSFERASE 48 U/L (10-37); BILIRUBIN,TOTAL 0.5 MG/DL (0.1-1.0); BLOOD UREA NITROGEN 15 MG/DL (7-18); BUN/CREATININE RATIO 20.8 (5.4-32.0); CALCIUM 7.8 MG/DL (8.5-10.1); CHLORIDE 106 MMOL/L (99-107); CREATININE 0.72 MG/DL (0.60-1.10); GLUCOSE 113 MG/DL (70-104); POTASSIUM 4.2 MMOL/L (3.5-5.1); SODIUM 139 MMOL/L (135-145); TOTAL CARBON DIOXIDE 23.3 MMOL/L (24-32); TOTAL PROTEIN 7.1 G/DL (6.4-8.2); eGFR > 90 ML/MIN
[2021-07-29] MEDS: K and/or MAG REPLACEMENT MC SCH ×2 (08:00→20:00)
[2021-07-29] MEDS: methylPREDNISolone sod succ 125mg/2ml vial IV SCH ×2 (08:44→20:35)
[2021-07-29] MEDS: normal saline 1000ml 1,000 ML IV SCH ×2 (08:45→20:30)
[2021-07-29] MEDS: folic acid 1mg/0.2ml inj IV SCH (08:45)
[2021-07-29] MEDS: aspirin 81mg tab.chew PO SCH (08:47)
[2021-07-29] MEDS: docusate sod 100mg capsule PO SCH ×2 (08:47→20:37)
[2021-07-29] MEDS: levetiracetam 250mg tablet PO SCH ×2 (08:47→20:36)
[2021-07-29] MEDS: lactobacillus rhamnosus 10,000 MMU CELLS/CAPSULE PO SCH ×2 (08:47→20:00)
[2021-07-29] MEDS: CefTRIAXone/D5W-Rocephin 1gm 50 ML IV SCH (08:48)
[2021-07-29] MEDS: thiamine 100mg tablet PO SCH (10:14)
[2021-07-29] MEDS: LORazepam 2 mg/ml vial IV PRN ×3 (10:14→20:37)
[2021-07-29 11:00] VITALS: BP 150/90
[2021-07-29 15:00] VITALS: BP 143/80
--- NOTE | 2021-07-29 18:14 | NUR ---
Patient in room PCU 3017. I have received report from Ayleen COPPOLA and had the opportunity to ask questions and assume patient care.
--- NOTE | 2021-07-29 18:30 | NUR ---
Patient in room PCU 3015. I have received report from ILIR and had the opportunity to ask questions and assume patient care.
[2021-07-29 19:00] VITALS: BP 137/77
[2021-07-29] MEDS: enoxaparin 40mg/0.4ml syringe SQ SCH (20:37)
[2021-07-29] MEDS: atorvastatin 20mg tablet PO SCH (20:37)
[2021-07-29] MEDS: acetaminophen 325mg tablet PO PRN (20:37)
[2021-07-29 22:00] VITALS: BP 133/86
[2021-07-30 02:00] VITALS: BP 127/79
[2021-07-30] MEDS: normal saline 1000ml 1,000 ML IV SCH ×2 (05:39→14:45)
--- NOTE | 2021-07-30 06:20 | NUR ---
Problems reprioritized. Patient report given, questions answered & plan of care reviewed with ASHWINI.
--- NOTE | 2021-07-30 06:50 | NUR ---
Patient in room PCU 3015. I have received report from ANAT Abbasi and had the opportunity to ask questions and assume patient care. Patient awake in bed and in no acute distress.
[2021-07-30 07:00] VITALS: BP 140/90
[2021-07-30 07:10] LABS: BASOPHILS % (AUTO) 0.1 % (0-1); EOSINOPHILS % (AUTO) 0 % (0-6); HEMATOCRIT 40.4 % (42.0-52.0); HEMOGLOBIN 13.4 g/dl (14.0-17.9); LYMPHOCYTES # (AUTO) 1.1 X10'3 (1.1-4.8); LYMPHOCYTES % (AUTO) 5.4 % (21-51); MEAN CORPUSCULAR HEMOGLOBIN 31.2 PG (27.0-31.0); MEAN CORPUSCULAR HGB CONC 33.1 g/dL (33.0-36.5); MEAN CORPUSCULAR VOLUME 94.3 FL (78-98); MEAN PLATELET VOLUME 8.6 FL (7.4-10.4); MONOCYTES # (AUTO) 0.5 X10'3 (0-0.9); MONOCYTES % (AUTO) 2.5 % (2-12); NEUTROPHILS # (AUTO) 19.6 X10'3 (1.8-7.7); PLATELET COUNT 493 X10'3 (140-440); RED BLOOD COUNT 4.28 X10'6 (4.70-6.10); RED CELL DISTRIBUTION WIDTH 13.7 % (11.5-14.5); WHITE BLOOD COUNT 21.3 X10'3 (4.5-11.0)
[2021-07-30 07:20] LABS: ALANINE AMINOTRANSFERASE 56 U/L (12-78); ALBUMIN 1.6 G/DL (3.4-5.0); ALBUMIN/GLOBULIN RATIO 0.3 (1.1-1.5); ALKALINE PHOSPHATASE 110 IU/L (46-116); ANION GAP 9 (8-16); ASPARTATE AMINO TRANSFERASE 25 U/L (10-37); BILIRUBIN,TOTAL 0.6 MG/DL (0.1-1.0); BLOOD UREA NITROGEN 14 MG/DL (7-18); BUN/CREATININE RATIO 16.9 (5.4-32.0); CHLORIDE 104 MMOL/L (99-107); CREATININE 0.83 MG/DL (0.60-1.10); GLUCOSE 135 MG/DL (70-104); POTASSIUM 4.3 MMOL/L (3.5-5.1); SODIUM 138 MMOL/L (135-145); TOTAL CARBON DIOXIDE 24.6 MMOL/L (24-32); TOTAL PROTEIN 7.5 G/DL (6.4-8.2); eGFR > 90 ML/MIN
[2021-07-30] MEDS: thiamine 100mg tablet PO SCH (07:57)
[2021-07-30] MEDS: lactobacillus rhamnosus 10,000 MMU CELLS/CAPSULE PO SCH ×2 (07:57→19:47)
[2021-07-30] MEDS: aspirin 81mg tab.chew PO SCH (07:57)
[2021-07-30] MEDS: levetiracetam 250mg tablet PO SCH ×2 (07:58→19:47)
[2021-07-30] MEDS: docusate sod 100mg capsule PO SCH ×2 (07:58→19:47)
[2021-07-30] MEDS: K and/or MAG REPLACEMENT MC SCH ×2 (08:00→20:00)
[2021-07-30] MEDS: methylPREDNISolone sod succ 125mg/2ml vial IV SCH (08:01)
[2021-07-30] MEDS: folic acid 1mg/0.2ml inj IV SCH (08:03)
[2021-07-30 11:00] VITALS: BP 134/88
--- NOTE | 2021-07-30 11:12 | NUR ---
Reassessment: PO intake is somewhat variable, mostly 0% on 07/26-, ~75% on 07/28 and refused last night 07/29. Pt noted to be weak and agitated at times and occasionally needs assistance w/ meals. Pt may benefit from ONS at this time to help meet nutrient needs while meal intake is variable. LBM 07/28 receiving routine colace. Will continue to monitor. Recs: 1. Continue Heart healthy/SB6 thins diet as tolerated; texture per ST 2. Ensure Enlive BIDBD to provide 700kcals and 40g protein if consumed 100% 3.. Bowel care per rx 4. Weekly wts Addendum: 07/30/21 at [address] Amended: Links added.
[2021-07-30 12:15] LABS: COLOR,URINE YELLOW (Yellow); UA COLLECTION TYPE CLN CATCH MIDSTREAM
[2021-07-30 12:16] LABS: CLARITY,URINE CLEAR (Clear); GLUCOSE, URINE NEGATIVE (Neg); KETONES,URINE NEGATIVE (Neg); PROTEIN,URINE NEGATIVE (Neg)
[2021-07-30 12:25] LABS: LEUKOCYTE ESTERASE ,URINE NEGATIVE (Neg); NITRITES, URINE NEGATIVE (Neg); OCCULT BLOOD,URINE NEGATIVE (Neg); UROBILINOGEN,URINE 0.2 E.U/dL (0.2-1.0)
[2021-07-30] MEDS ORDERED: methylPREDNISolone sod succ 125mg/2ml vial IV SCH (13:05)
[2021-07-30] MEDS: piperacillin/tazo 4.5gm/100ml 100 ML IV SCH (14:17)
[2021-07-30 15:00] VITALS: BP 112/73
[2021-07-30] MEDS ORDERED: lactose-reduced food (Ensure Enlive) - 237ml bottle PO SCH (17:30)
[2021-07-30 18:00] VITALS: BP 112/76
--- NOTE | 2021-07-30 18:24 | NUR ---
Problems reprioritized. Patient report given, questions answered & plan of care reviewed with ANAT Wellington. Patient stable at transfer of care.
--- NOTE | 2021-07-30 18:25 | NUR ---
Patient in room PCU 3015. I have received report from ginna Grajeda and had the opportunity to ask questions and assume patient care.
[2021-07-30] MEDS: enoxaparin 40mg/0.4ml syringe SQ SCH (19:48)
[2021-07-30] MEDS: atorvastatin 20mg tablet PO SCH (20:11)
--- NOTE | 2021-07-30 20:19 | NUR ---
Patient requested that I take a $100.00 bill out of his wallet to give to his girlfriend. I met her in the lobby and she gave me $70.00 plus ice cream, hamburger, and drink. I counted the money with the patient when I got back to his room. I chopped his ham,nathanger up and he ate half of it. His wallet was put back in his pants and placed in his wallet. Addendum: 07/30/21 at 2022 by Amish Au RN Brandi the charge nurse saw me take the lolita out of his wallet and he confirmed what he wanted me to do.
[2021-07-30 23:09] VITALS: BP 119/68
[2021-07-31] MEDS: normal saline 1000ml 1,000 ML IV SCH ×3 (00:45→19:43)
[2021-07-31] MEDS: HYDROcodone/acetaminophen 5mg/325mg tablet PO PRN ×2 (02:18→23:41)
[2021-07-31 03:06] VITALS: BP 135/80
[2021-07-31] MEDS: vancomycin/NS 1 GM ADD-VANTAGE 250 ML IV SCH ×3 (04:00→19:42)
[2021-07-31 06:00] VITALS: BP 133/75
--- NOTE | 2021-07-31 06:18 | NUR ---
Problems reprioritized. Patient report given, questions answered & plan of care reviewed with ANAT Cunha.
--- NOTE | 2021-07-31 06:30 | NUR ---
Patient in room PCU 3015. I have received report from Amish COPPOLA and had the opportunity to ask questions and assume patient care.
[2021-07-31 07:30] LABS: BASOPHILS % (AUTO) 0.1 % (0-1); EOSINOPHILS # (AUTO) 0.1 X10'3 (0-0.9); EOSINOPHILS % (AUTO) 0.4 % (0-6); HEMATOCRIT 39.1 % (42.0-52.0); HEMOGLOBIN 12.5 g/dl (14.0-17.9); LYMPHOCYTES # (AUTO) 1.6 X10'3 (1.1-4.8); LYMPHOCYTES % (AUTO) 9.8 % (21-51); MEAN CORPUSCULAR HEMOGLOBIN 30.8 PG (27.0-31.0); MEAN CORPUSCULAR VOLUME 96.3 FL (78-98); MEAN PLATELET VOLUME 8.2 FL (7.4-10.4); MONOCYTES # (AUTO) 0.5 X10'3 (0-0.9); MONOCYTES % (AUTO) 3.1 % (2-12); NEUTROPHILS # (AUTO) 14.5 X10'3 (1.8-7.7); NEUTROPHILS % (AUTO) 86.6 % (42-75); PLATELET COUNT 436 X10'3 (140-440); RED BLOOD COUNT 4.06 X10'6 (4.70-6.10); RED CELL DISTRIBUTION WIDTH 13.9 % (11.5-14.5); WHITE BLOOD COUNT 16.7 X10'3 (4.5-11.0)
[2021-07-31] MEDS: K and/or MAG REPLACEMENT MC SCH ×2 (08:00→19:42)
[2021-07-31 08:09] LABS: ALANINE AMINOTRANSFERASE 75 U/L (12-78); ALBUMIN 1.5 G/DL (3.4-5.0); ALBUMIN/GLOBULIN RATIO 0.3 (1.1-1.5); ALKALINE PHOSPHATASE 97 IU/L (46-116); ANION GAP 8 (8-16); ASPARTATE AMINO TRANSFERASE 50 U/L (10-37); BILIRUBIN,TOTAL 0.4 MG/DL (0.1-1.0); BLOOD UREA NITROGEN 16 MG/DL (7-18); BUN/CREATININE RATIO 20.5 (5.4-32.0); CALCIUM 7.7 MG/DL (8.5-10.1); CHLORIDE 107 MMOL/L (99-107); CREATININE 0.78 MG/DL (0.60-1.10); GLUCOSE 103 MG/DL (70-104); POTASSIUM 4.3 MMOL/L (3.5-5.1); SODIUM 138 MMOL/L (135-145); TOTAL CARBON DIOXIDE 22.7 MMOL/L (24-32); TOTAL PROTEIN 6.9 G/DL (6.4-8.2); eGFR > 90 ML/MIN
[2021-07-31 08:21] LABS: LARGE PLATELETS FEW; PLATELET ESTIMATE NORMAL; TOTAL CELLS COUNTED 100
[2021-07-31] MEDS: methylPREDNISolone sod succ 125mg/2ml vial IV SCH (09:08)
[2021-07-31] MEDS: folic acid 1mg/0.2ml inj IV SCH (09:09)
[2021-07-31] MEDS: lactobacillus rhamnosus 10,000 MMU CELLS/CAPSULE PO SCH ×2 (09:09→19:40)
[2021-07-31] MEDS: thiamine 100mg tablet PO SCH (09:09)
[2021-07-31] MEDS: aspirin 81mg tab.chew PO SCH (09:09)
[2021-07-31] MEDS: levetiracetam 250mg tablet PO SCH ×2 (09:09→19:40)
[2021-07-31] MEDS: docusate sod 100mg capsule PO SCH ×2 (09:09→19:40)
[2021-07-31] MEDS: piperacillin/tazo 4.5gm/100ml 100 ML IV SCH ×2 (09:10→21:30)
[2021-07-31 11:00] VITALS: BP 124/79
--- NOTE | 2021-07-31 11:39 | NUR ---
Diabetes Consult: New onset diabetes, A1C 6.9 YAMILETH w/ at pt bedside. informed pt of new diabetes dx. YAMILETH provided written and verbal diabetes education w/ RD contact info. Pt receptive of information. Will continue to monitor. Addendum: 07/31/21 at [address] Amended: Links added.
[2021-07-31] MEDS ORDERED: MESSAGE TO PHARMACY PO ONE (17:10)
[2021-07-31] MEDS ORDERED: insulin Lispro (HumaLOG) vial - multi-dose SQ SCH (17:10)
[2021-07-31] MEDS ORDERED: dextrose 50%-water 50ml dispensing syringe IV PRN ×2 (17:10)
[2021-07-31] MEDS ORDERED: dextrose ORAL solution 15 GM/59 ML bottle PO PRN ×2 (17:10)
[2021-07-31] MEDS ORDERED: glucagon, human recombinant 1mg kit SUBCUT PRN (17:10)
[2021-07-31 19:00] VITALS: BP 108/64
[2021-07-31] MEDS: enoxaparin 40mg/0.4ml syringe SQ SCH (19:41)
[2021-07-31] MEDS: insulin glargine (Lantus) pen - multi-dose SQ SCH (21:00)
[2021-07-31] MEDS: atorvastatin 20mg tablet PO SCH (21:30)
[2021-07-31 23:00] VITALS: BP 128/62
[2021-08-01 02:30] VITALS: BP 132/66
[2021-08-01] MEDS ORDERED: VANCOMYCIN LEVEL IV ONE (03:30)
[2021-08-01 03:58] LABS: BASOPHILS # (AUTO) 0.1 X10'3 (0-0.2); BASOPHILS % (AUTO) 0.5 % (0-1); EOSINOPHILS % (AUTO) 0.3 % (0-6); HEMATOCRIT 35.9 % (42.0-52.0); HEMOGLOBIN 11.5 g/dl (14.0-17.9); LYMPHOCYTES # (AUTO) 1.9 X10'3 (1.1-4.8); LYMPHOCYTES % (AUTO) 13.7 % (21-51); MEAN CORPUSCULAR HEMOGLOBIN 30.3 PG (27.0-31.0); MEAN CORPUSCULAR HGB CONC 32.2 g/dL (33.0-36.5); MEAN PLATELET VOLUME 7.8 FL (7.4-10.4); MONOCYTES # (AUTO) 0.6 X10'3 (0-0.9); MONOCYTES % (AUTO) 4.1 % (2-12); NEUTROPHILS # (AUTO) 11.3 X10'3 (1.8-7.7); NEUTROPHILS % (AUTO) 81.4 % (42-75); PLATELET COUNT 471 X10'3 (140-440); RED BLOOD COUNT 3.82 X10'6 (4.70-6.10); RED CELL DISTRIBUTION WIDTH 13.8 % (11.5-14.5); WHITE BLOOD COUNT 13.9 X10'3 (4.5-11.0)
[2021-08-01] MEDS: vancomycin/NS 1 GM ADD-VANTAGE 250 ML IV SCH (04:06)
[2021-08-01 04:12] LABS: ALANINE AMINOTRANSFERASE 83 U/L (12-78); ALBUMIN 1.4 G/DL (3.4-5.0); ALBUMIN/GLOBULIN RATIO 0.3 (1.1-1.5); ALKALINE PHOSPHATASE 95 IU/L (46-116); ANION GAP 8 (8-16); ASPARTATE AMINO TRANSFERASE 42 U/L (10-37); BILIRUBIN,TOTAL 0.4 MG/DL (0.1-1.0); BLOOD UREA NITROGEN 16 MG/DL (7-18); BUN/CREATININE RATIO 21.3 (5.4-32.0); CALCIUM 7.8 MG/DL (8.5-10.1); CHLORIDE 108 MMOL/L (99-107); CREATININE 0.75 MG/DL (0.60-1.10); GLUCOSE 96 MG/DL (70-104); POTASSIUM 3.8 MMOL/L (3.5-5.1); SODIUM 141 MMOL/L (135-145); TOTAL CARBON DIOXIDE 24.8 MMOL/L (24-32); TOTAL PROTEIN 6.8 G/DL (6.4-8.2); VANCOMYCIN,TROUGH 9.6 UG/ML (6.0-14.0); eGFR > 90 ML/MIN
[2021-08-01 06:00] VITALS: BP 140/71
[2021-08-01] MEDS: normal saline 1000ml 1,000 ML IV SCH ×3 (06:45→20:52)
--- NOTE | 2021-08-01 06:58 | NUR ---
Patient in room PCU 3015. I have received report from Evelyne RN and had the opportunity to ask questions and assume patient care.
[2021-08-01] MEDS: K and/or MAG REPLACEMENT MC SCH ×2 (08:00→20:00)
[2021-08-01] MEDS: lactobacillus rhamnosus 10,000 MMU CELLS/CAPSULE PO SCH ×2 (08:24→20:39)
[2021-08-01] MEDS: piperacillin/tazo 4.5gm/100ml 100 ML IV SCH (08:24)
[2021-08-01] MEDS: aspirin 81mg tab.chew PO SCH (08:24)
[2021-08-01] MEDS: methylPREDNISolone sod succ 125mg/2ml vial IV SCH (08:24)
[2021-08-01] MEDS: levetiracetam 250mg tablet PO SCH ×2 (08:24→20:39)
[2021-08-01] MEDS: thiamine 100mg tablet PO SCH (08:24)
[2021-08-01] MEDS: docusate sod 100mg capsule PO SCH ×2 (08:24→20:38)
[2021-08-01] MEDS: HYDROcodone/acetaminophen 5mg/325mg tablet PO PRN ×3 (08:29→20:39)
[2021-08-01] MEDS: folic acid 1mg/0.2ml inj IV SCH (09:29)
[2021-08-01 11:00] VITALS: BP 123/83
--- NOTE | 2021-08-01 13:49 | NUR ---
Reassessment: Pt with significant improvement in PO intake documented with 75-100% PO intake since dinner 07/29. ONS not verified in EMR though pt would more likely benefit from double protein with meals if pt continues with current trends in PO intake. LBM 07/30, receiving routine bowel care. Will continue to follow and make recommendations as appropriate pending further trends in PO intake. Recs: 1. Continue Heart healthy/SB6 diet with thin liquids per ST recs; monitor BG levels and need for CHO controlled diet 2. Ensure Enlive BIDBD pending physician approval in EMR. Consider double protein TID for satiety and increased protein needs instead of ONS if pt continues with current trends in PO intake 3. Routine bowel care 4. Scaled weight this admit; weekly scaled weights thereafter Addendum: 08/01/21 at [address] Amended: Links added.
[2021-08-01 15:00] VITALS: BP 123/73
[2021-08-01] MEDS: VANCOmycin 1250MG/NS 250ml Bag 250 ML IV SCH (15:13)
[2021-08-01 18:00] VITALS: BP 128/78
--- NOTE | 2021-08-01 18:45 | NUR ---
Problems reprioritized. Patient report given, questions answered & plan of care reviewed with Sadaf COPPOLA. Patient stable at transfer of care.
--- NOTE | 2021-08-01 18:47 | NUR ---
Patient in room PCU 3015. I have received report from ANAT Franks and had the opportunity to ask questions and assume patient care.
[2021-08-01] MEDS: enoxaparin 40mg/0.4ml syringe SQ SCH (20:38)
[2021-08-01] MEDS: atorvastatin 20mg tablet PO SCH (20:38)
[2021-08-01] MEDS: insulin glargine (Lantus) pen - multi-dose SQ SCH (20:48)
[2021-08-01 22:00] VITALS: BP 137/82
[2021-08-02] MEDS: HYDROcodone/acetaminophen 5mg/325mg tablet PO PRN ×5 (00:55→20:51)
[2021-08-02 02:00] VITALS: BP 126/78
[2021-08-02] MEDS: VANCOmycin 1250MG/NS 250ml Bag 250 ML IV SCH ×3 (02:20→17:55)
[2021-08-02] MEDS: normal saline 1000ml 1,000 ML IV SCH ×3 (02:45→21:53)
[2021-08-02 06:00] VITALS: BP 134/81
--- NOTE | 2021-08-02 06:15 | NUR ---
Problems reprioritized. Patient report given, questions answered & plan of care reviewed with ANAT Ruiz.
--- NOTE | 2021-08-02 06:34 | NUR ---
Patient in room PCU 3015. I have received report from Sadaf COPPOLA and had the opportunity to ask questions and assume patient care.
[2021-08-02 06:51] LABS: BASOPHILS % (AUTO) 0.1 % (0-1); EOSINOPHILS % (AUTO) 0.3 % (0-6); HEMATOCRIT 34.7 % (42.0-52.0); HEMOGLOBIN 11.6 g/dl (14.0-17.9); LYMPHOCYTES # (AUTO) 1.2 X10'3 (1.1-4.8); LYMPHOCYTES % (AUTO) 10.8 % (21-51); MEAN CORPUSCULAR HEMOGLOBIN 31.3 PG (27.0-31.0); MEAN CORPUSCULAR HGB CONC 33.3 g/dL (33.0-36.5); MEAN PLATELET VOLUME 7.7 FL (7.4-10.4); MONOCYTES # (AUTO) 0.4 X10'3 (0-0.9); MONOCYTES % (AUTO) 3.9 % (2-12); NEUTROPHILS # (AUTO) 9.7 X10'3 (1.8-7.7); NEUTROPHILS % (AUTO) 84.9 % (42-75); PLATELET COUNT 483 X10'3 (140-440); RED BLOOD COUNT 3.69 X10'6 (4.70-6.10); RED CELL DISTRIBUTION WIDTH 13.6 % (11.5-14.5); WHITE BLOOD COUNT 11.4 X10'3 (4.5-11.0)
[2021-08-02] MEDS: folic acid 1mg/0.2ml inj IV SCH (07:02)
[2021-08-02] MEDS: lactobacillus rhamnosus 10,000 MMU CELLS/CAPSULE PO SCH ×2 (07:02→20:50)
[2021-08-02] MEDS: docusate sod 100mg capsule PO SCH ×2 (07:02→20:50)
[2021-08-02] MEDS: thiamine 100mg tablet PO SCH (07:03)
[2021-08-02] MEDS: levetiracetam 250mg tablet PO SCH ×2 (07:03→20:50)
[2021-08-02] MEDS: methylPREDNISolone sod succ 125mg/2ml vial IV SCH (07:03)
[2021-08-02] MEDS: aspirin 81mg tab.chew PO SCH (07:03)
[2021-08-02 07:10] LABS: ALANINE AMINOTRANSFERASE 85 U/L (12-78); ALBUMIN 1.5 G/DL (3.4-5.0); ALBUMIN/GLOBULIN RATIO 0.3 (1.1-1.5); ALKALINE PHOSPHATASE 102 IU/L (46-116); ANION GAP 7 (8-16); ASPARTATE AMINO TRANSFERASE 32 U/L (10-37); BILIRUBIN,TOTAL 0.3 MG/DL (0.1-1.0); BLOOD UREA NITROGEN 12 MG/DL (7-18); BUN/CREATININE RATIO 16.9 (5.4-32.0); CALCIUM 8.1 MG/DL (8.5-10.1); CHLORIDE 105 MMOL/L (99-107); CREATININE 0.71 MG/DL (0.60-1.10); GLUCOSE 135 MG/DL (70-104); POTASSIUM 3.8 MMOL/L (3.5-5.1); SODIUM 136 MMOL/L (135-145); TOTAL CARBON DIOXIDE 23.9 MMOL/L (24-32); TOTAL PROTEIN 7.3 G/DL (6.4-8.2); eGFR > 90 ML/MIN
[2021-08-02] MEDS: K and/or MAG REPLACEMENT MC SCH ×2 (08:00→20:00)
--- NOTE | 2021-08-02 08:38 | NUR ---
PAGER ID: [phone] MESSAGE: CAREY COPPOLA [phone] RE: MATT Lugo [phone]. POSITIVE BLOOD CULTURE GRAM + COCCI IN CLUSTERS. THANK YO
[2021-08-02 11:00] VITALS: BP 128/78
[2021-08-02 15:00] VITALS: BP 139/64
[2021-08-02] MEDS: magnesium hydroxide 30ml (MOM) UD suspension PO PRN (17:00)
[2021-08-02 18:00] VITALS: BP 148/62
--- NOTE | 2021-08-02 18:36 | NUR ---
Patient in room PCU 3015. I have received report from ANAT Ruiz and had the opportunity to ask questions and assume patient care.
--- NOTE | 2021-08-02 18:38 | NUR ---
Problems reprioritized. Patient report given, questions answered & plan of care reviewed with Sadaf COPPOLA.
[2021-08-02] MEDS: enoxaparin 40mg/0.4ml syringe SQ SCH (20:50)
[2021-08-02] MEDS: atorvastatin 20mg tablet PO SCH (20:50)
[2021-08-02] MEDS: insulin glargine (Lantus) pen - multi-dose SQ SCH (20:59)
[2021-08-02 22:00] VITALS: BP 138/66
[2021-08-03] MEDS: normal saline 1000ml 1,000 ML IV SCH ×3 (00:31→13:52)
[2021-08-03] MEDS: HYDROcodone/acetaminophen 5mg/325mg tablet PO PRN ×3 (00:31→19:57)
[2021-08-03] MEDS: VANCOmycin 1250MG/NS 250ml Bag 250 ML IV SCH ×2 (01:30→09:39)
[2021-08-03] MEDS ORDERED: VANCOMYCIN LEVEL IV ONE (01:30)
[2021-08-03 02:00] VITALS: BP 140/66
[2021-08-03 06:00] VITALS: BP 136/82
--- NOTE | 2021-08-03 06:05 | NUR ---
Patient in room PCU 3015. I have received report from Sadaf COPPOLA and had the opportunity to ask questions and assume patient care.
--- NOTE | 2021-08-03 06:05 | NUR ---
Problems reprioritized. Patient report given, questions answered & plan of care reviewed with ANAT Ruiz.
[2021-08-03] MEDS: levetiracetam 250mg tablet PO SCH ×2 (07:02→19:57)
[2021-08-03] MEDS: docusate sod 100mg capsule PO SCH ×2 (07:02→19:56)
[2021-08-03] MEDS: aspirin 81mg tab.chew PO SCH (07:03)
[2021-08-03] MEDS: lactobacillus rhamnosus 10,000 MMU CELLS/CAPSULE PO SCH ×2 (07:03→19:56)
[2021-08-03] MEDS: folic acid 1mg/0.2ml inj IV SCH (07:03)
[2021-08-03] MEDS: thiamine 100mg tablet PO SCH (07:03)
[2021-08-03] MEDS: methylPREDNISolone sod succ 125mg/2ml vial IV SCH (07:03)
[2021-08-03] MEDS: lactose-reduced food (Ensure Enlive) - 237ml bottle PO SCH ×2 (07:51→18:05)
[2021-08-03] MEDS: K and/or MAG REPLACEMENT MC SCH ×2 (08:00→19:58)
[2021-08-03 08:59] LABS: BASOPHILS % (AUTO) 0.1 % (0-1); EOSINOPHILS % (AUTO) 0.2 % (0-6); HEMATOCRIT 34.8 % (42.0-52.0); HEMOGLOBIN 11.3 g/dl (14.0-17.9); LYMPHOCYTES # (AUTO) 0.6 X10'3 (1.1-4.8); LYMPHOCYTES % (AUTO) 4.5 % (21-51); MEAN CORPUSCULAR HEMOGLOBIN 30.4 PG (27.0-31.0); MEAN CORPUSCULAR HGB CONC 32.5 g/dL (33.0-36.5); MEAN CORPUSCULAR VOLUME 93.8 FL (78-98); MEAN PLATELET VOLUME 7.4 FL (7.4-10.4); MONOCYTES # (AUTO) 0.3 X10'3 (0-0.9); MONOCYTES % (AUTO) 2.3 % (2-12); NEUTROPHILS # (AUTO) 12.1 X10'3 (1.8-7.7); NEUTROPHILS % (AUTO) 92.9 % (42-75); PLATELET COUNT 452 X10'3 (140-440); RED BLOOD COUNT 3.71 X10'6 (4.70-6.10); RED CELL DISTRIBUTION WIDTH 13.9 % (11.5-14.5); WHITE BLOOD COUNT 13.1 X10'3 (4.5-11.0)
[2021-08-03 09:08] LABS: ALANINE AMINOTRANSFERASE 67 U/L (12-78); ALBUMIN 1.6 G/DL (3.4-5.0); ALBUMIN/GLOBULIN RATIO 0.3 (1.1-1.5); ALKALINE PHOSPHATASE 100 IU/L (46-116); ANION GAP 9 (8-16); ASPARTATE AMINO TRANSFERASE 24 U/L (10-37); BILIRUBIN,TOTAL 0.4 MG/DL (0.1-1.0); BLOOD UREA NITROGEN 11 MG/DL (7-18); BUN/CREATININE RATIO 16.4 (5.4-32.0); CALCIUM 8.1 MG/DL (8.5-10.1); CHLORIDE 104 MMOL/L (99-107); CREATININE 0.67 MG/DL (0.60-1.10); GLUCOSE 120 MG/DL (70-104); POTASSIUM 4.1 MMOL/L (3.5-5.1); SODIUM 140 MMOL/L (135-145); TOTAL CARBON DIOXIDE 27.1 MMOL/L (24-32); TOTAL PROTEIN 7.5 G/DL (6.4-8.2); eGFR > 90 ML/MIN
[2021-08-03 11:00] VITALS: BP 127/83
[2021-08-03] MEDS: magnesium hydroxide 30ml (MOM) UD suspension PO PRN (14:08)
--- NOTE | 2021-08-03 14:50 | NUR ---
Pt was incontinent x2 this AM and requested a condom catheter. Pt has had a large amout of urine output. Pt has not had a BM in x 4 days, MD aware, MOM ordered BID. Pt met [facility] hyperglycemic protocol this shift. Pt not happy about insulin however patient is compliant. Pt not agreeable to get in recliner this shift however pt agreed to pillow repositioning. Will continue to monitor pt.
[2021-08-03 15:00] VITALS: BP 127/74
--- NOTE | 2021-08-03 15:40 | NUR ---
PAGER ID: [phone] MESSAGE: Sara chacko [phone] RE: Roderick Mcmullen [id number]. MilkOMag ineffective thus far, pt requesting something stronger. Thank you.
[2021-08-03] MEDS ORDERED: bisacodyl 10mg suppository rectal RC STA (15:41)
[2021-08-03 18:00] VITALS: BP 123/75
--- NOTE | 2021-08-03 18:01 | NUR ---
At 1759 pt began yelling out "im having a siezure, im having a siezure" nursing charge and primary nurse came in and patient was alert talking with nursing staff. Pt did not appear to be having a siezure it appeared more as if pts right arm was having a mild spasm. Will continue to monitor patient and bring attention to noc RN.
--- NOTE | 2021-08-03 18:25 | NUR ---
Problems reprioritized. Patient report given, questions answered & plan of care reviewed with manish chacko.
[2021-08-03] MEDS: magnesium hydroxide 30ml (MOM) UD suspension PO SCH (19:56)
[2021-08-03] MEDS: enoxaparin 40mg/0.4ml syringe SQ SCH (19:56)
[2021-08-03] MEDS: atorvastatin 20mg tablet PO SCH (20:00)
[2021-08-03] MEDS: insulin glargine (Lantus) pen - multi-dose SQ SCH (21:00)
[2021-08-03 22:00] VITALS: BP 138/68
--- NOTE | 2021-08-03 22:36 | NUR ---
Patient in room PCU 3015. I have received report from MERISSA COPPOLA and had the opportunity to ask questions and assume patient care.
[2021-08-04] MEDS: normal saline 1000ml 1,000 ML IV SCH ×2 (01:15→14:45)
[2021-08-04 02:00] VITALS: BP 125/85
[2021-08-04] MEDS: HYDROcodone/acetaminophen 5mg/325mg tablet PO PRN ×3 (03:40→22:50)
--- NOTE | 2021-08-04 04:30 | NUR ---
PAGED DR. RALPH AND WAS INFORMED OF PATIENT WITH POSITIVE BLOOD CULTURE GRAM+ COCCI IN CLUSTERS IN AEROBIC BOTTLES AND ALREADY ON VANCOMYCIN IV. MD CALLED BACK WITH NO NEW ORDERS.
[2021-08-04 06:00] VITALS: BP 126/85
--- NOTE | 2021-08-04 06:15 | NUR ---
Problems reprioritized. Patient report given, questions answered & plan of care reviewed with THONY COPPOLA.
--- NOTE | 2021-08-04 06:17 | NUR ---
Patient in room PCU 3015. I have received report from SAMREEN JOLLEY RN and had the opportunity to ask questions and assume patient care.
[2021-08-04 06:27] LABS: BASOPHILS % (AUTO) 0.4 % (0-1); EOSINOPHILS % (AUTO) 0.4 % (0-6); HEMATOCRIT 32.7 % (42.0-52.0); HEMOGLOBIN 11.2 g/dl (14.0-17.9); LYMPHOCYTES # (AUTO) 1.1 X10'3 (1.1-4.8); LYMPHOCYTES % (AUTO) 8.7 % (21-51); MEAN CORPUSCULAR HEMOGLOBIN 31.6 PG (27.0-31.0); MEAN CORPUSCULAR HGB CONC 34.1 g/dL (33.0-36.5); MEAN CORPUSCULAR VOLUME 92.5 FL (78-98); MEAN PLATELET VOLUME 7.4 FL (7.4-10.4); MONOCYTES # (AUTO) 0.4 X10'3 (0-0.9); MONOCYTES % (AUTO) 3.4 % (2-12); NEUTROPHILS # (AUTO) 11.4 X10'3 (1.8-7.7); NEUTROPHILS % (AUTO) 87.1 % (42-75); PLATELET COUNT 468 X10'3 (140-440); RED BLOOD COUNT 3.53 X10'6 (4.70-6.10); RED CELL DISTRIBUTION WIDTH 13.5 % (11.5-14.5)
[2021-08-04 06:42] LABS: ALANINE AMINOTRANSFERASE 62 U/L (12-78); ALBUMIN 1.6 G/DL (3.4-5.0); ALBUMIN/GLOBULIN RATIO 0.3 (1.1-1.5); ALKALINE PHOSPHATASE 104 IU/L (46-116); ANION GAP 6 (8-16); ASPARTATE AMINO TRANSFERASE 24 U/L (10-37); BILIRUBIN,TOTAL 0.4 MG/DL (0.1-1.0); BLOOD UREA NITROGEN 14 MG/DL (7-18); BUN/CREATININE RATIO 18.4 (5.4-32.0); CALCIUM 8.2 MG/DL (8.5-10.1); CHLORIDE 104 MMOL/L (99-107); CREATININE 0.76 MG/DL (0.60-1.10); GLUCOSE 113 MG/DL (70-104); POTASSIUM 3.9 MMOL/L (3.5-5.1); SODIUM 137 MMOL/L (135-145); TOTAL CARBON DIOXIDE 27.4 MMOL/L (24-32); TOTAL PROTEIN 7.5 G/DL (6.4-8.2); eGFR > 90 ML/MIN
[2021-08-04] MEDS: K and/or MAG REPLACEMENT MC SCH ×2 (08:00→19:52)
[2021-08-04] MEDS: lactose-reduced food (Ensure Enlive) - 237ml bottle PO SCH ×2 (08:34→17:26)
[2021-08-04] MEDS: thiamine 100mg tablet PO SCH (08:35)
[2021-08-04] MEDS: docusate sod 100mg capsule PO SCH ×2 (08:35→19:03)
[2021-08-04] MEDS: lactobacillus rhamnosus 10,000 MMU CELLS/CAPSULE PO SCH ×2 (08:35→19:04)
[2021-08-04] MEDS: aspirin 81mg tab.chew PO SCH (08:35)
[2021-08-04] MEDS: magnesium hydroxide 30ml (MOM) UD suspension PO SCH ×2 (08:35→19:03)
[2021-08-04] MEDS: levetiracetam 250mg tablet PO SCH ×2 (08:35→19:03)
[2021-08-04] MEDS: methylPREDNISolone sod succ 125mg/2ml vial IV SCH (08:37)
--- NOTE | 2021-08-04 08:46 | NUR ---
LAB VALUE TAKEN FROM LAB REPORTED TO PRIMARY RN.
[2021-08-04] MEDS: folic acid 1mg/0.2ml inj IV SCH (09:52)
[2021-08-04 11:00] VITALS: BP 129/77
--- NOTE | 2021-08-04 12:15 | NUR ---
UNABLE TO GET PTS BLOOD SUGARS, PT ALREADY HAD EATEN LUNCH TRAY. LET CHARGE NURSE KNOW AND I WILL NOT COVER THE PT SINCE HE HAS NEVER MET PROTOCOL DURING HIS HOSPITAL STAY.
[2021-08-04 15:00] VITALS: BP 120/73
[2021-08-04] MEDS ORDERED: VANCOMYCIN LEVEL IV ONE (17:30)
[2021-08-04 18:00] VITALS: BP 115/59
--- NOTE | 2021-08-04 18:26 | NUR ---
Problems reprioritized. Patient report given, questions answered & plan of care reviewed with REYMUNDO COPPOLA.
[2021-08-04] MEDS: enoxaparin 40mg/0.4ml syringe SQ SCH (19:05)
[2021-08-04] MEDS: insulin glargine (Lantus) pen - multi-dose SQ SCH (21:00)
[2021-08-04] MEDS: atorvastatin 20mg tablet PO SCH (21:36)
[2021-08-04 22:00] VITALS: BP 124/88
[2021-08-05] MEDS: normal saline 1000ml 1,000 ML IV SCH ×3 (00:45→23:27)
[2021-08-05 02:00] VITALS: BP 114/78
[2021-08-05] MEDS: HYDROcodone/acetaminophen 5mg/325mg tablet PO PRN ×4 (03:49→20:32)
[2021-08-05 06:00] VITALS: BP 117/66
--- NOTE | 2021-08-05 06:07 | NUR ---
Student documentation: I have reviewed and agree with all interventions, assessments performed and documented by Johan, Student Nurse.
--- NOTE | 2021-08-05 06:35 | NUR ---
Problems reprioritized. Patient report given, questions answered & plan of care reviewed with ANAT Nguyen.
--- NOTE | 2021-08-05 06:39 | NUR ---
Patient in room PCU 3015. I have received report from Gabi COPPOLA-Johan Student and had the opportunity to ask questions and assume patient care.
[2021-08-05 07:12] LABS: BASOPHILS # (AUTO) 0.1 X10'3 (0-0.2); BASOPHILS % (AUTO) 0.5 % (0-1); EOSINOPHILS # (AUTO) 0.1 X10'3 (0-0.9); EOSINOPHILS % (AUTO) 0.8 % (0-6); HEMATOCRIT 33.3 % (42.0-52.0); HEMOGLOBIN 10.9 g/dl (14.0-17.9); LYMPHOCYTES % (AUTO) 7.9 % (21-51); MEAN CORPUSCULAR HEMOGLOBIN 30.9 PG (27.0-31.0); MEAN CORPUSCULAR HGB CONC 32.9 g/dL (33.0-36.5); MEAN PLATELET VOLUME 7.5 FL (7.4-10.4); MONOCYTES # (AUTO) 0.4 X10'3 (0-0.9); MONOCYTES % (AUTO) 3.2 % (2-12); NEUTROPHILS # (AUTO) 11.4 X10'3 (1.8-7.7); NEUTROPHILS % (AUTO) 87.6 % (42-75); PLATELET COUNT 449 X10'3 (140-440); RED BLOOD COUNT 3.54 X10'6 (4.70-6.10)
[2021-08-05] MEDS: lactose-reduced food (Ensure Enlive) - 237ml bottle PO SCH ×3 (07:45→17:30)
[2021-08-05 07:47] LABS: ALANINE AMINOTRANSFERASE 56 U/L (12-78); ALBUMIN 1.6 G/DL (3.4-5.0); ALBUMIN/GLOBULIN RATIO 0.3 (1.1-1.5); ALKALINE PHOSPHATASE 97 IU/L (46-116); ANION GAP 7 (8-16); ASPARTATE AMINO TRANSFERASE 21 U/L (10-37); BILIRUBIN,TOTAL 0.4 MG/DL (0.1-1.0); BLOOD UREA NITROGEN 14 MG/DL (7-18); BUN/CREATININE RATIO 21.9 (5.4-32.0); CALCIUM 8.2 MG/DL (8.5-10.1); CHLORIDE 104 MMOL/L (99-107); CREATININE 0.64 MG/DL (0.60-1.10); GLUCOSE 103 MG/DL (70-104); POTASSIUM 4.1 MMOL/L (3.5-5.1); SODIUM 138 MMOL/L (135-145); TOTAL CARBON DIOXIDE 26.8 MMOL/L (24-32); TOTAL PROTEIN 7.4 G/DL (6.4-8.2); eGFR > 90 ML/MIN
[2021-08-05] MEDS: K and/or MAG REPLACEMENT MC SCH ×2 (08:00→20:00)
[2021-08-05] MEDS: linezolid 600mg tablet PO SCH ×2 (08:24→20:30)
[2021-08-05] MEDS: aspirin 81mg tab.chew PO SCH (08:24)
[2021-08-05] MEDS: docusate sod 100mg capsule PO SCH ×2 (08:25→20:28)
[2021-08-05] MEDS: thiamine 100mg tablet PO SCH (08:25)
[2021-08-05] MEDS: lactobacillus rhamnosus 10,000 MMU CELLS/CAPSULE PO SCH ×2 (08:25→20:30)
[2021-08-05] MEDS: levetiracetam 250mg tablet PO SCH ×2 (08:26→20:29)
[2021-08-05] MEDS: methylPREDNISolone sod succ 125mg/2ml vial IV SCH (08:26)
[2021-08-05] MEDS: magnesium hydroxide 30ml (MOM) UD suspension PO SCH ×2 (08:27→20:33)
[2021-08-05] MEDS: folic acid 1mg/0.2ml inj IV SCH (08:28)
[2021-08-05 08:51] LABS: HIV ANTIBODY 1&2 RAPID NON-REACTIVE (Neg)
[2021-08-05] MEDS ORDERED: VANCOMYCIN LEVEL IV ONE (09:30)
[2021-08-05 13:00] VITALS: BP 123/90
--- NOTE | 2021-08-05 13:28 | NUR ---
Alejandro Consult: Attempted to provide low tyramine diet education but pt refused both verbal and written instruction. Written education w/ RD contact info placed in pt chart. Addendum: 08/05/21 at [address] Amended: Links added.
[2021-08-05 15:01] VITALS: BP 128/79
[2021-08-05 18:00] VITALS: BP 105/72
--- NOTE | 2021-08-05 18:49 | NUR ---
Problems reprioritized. Patient report given, questions answered & plan of care reviewed with Twin COPPOLA Traveler.
[2021-08-05] MEDS: atorvastatin 20mg tablet PO SCH (20:30)
[2021-08-05] MEDS: enoxaparin 40mg/0.4ml syringe SQ SCH (20:33)
[2021-08-05] MEDS: insulin glargine (Lantus) pen - multi-dose SQ SCH (21:00)
[2021-08-05 22:00] VITALS: BP 120/81
[2021-08-06] MEDS: HYDROcodone/acetaminophen 5mg/325mg tablet PO PRN ×3 (00:49→17:30)
[2021-08-06 02:00] VITALS: BP 117/73
[2021-08-06 06:00] VITALS: BP 119/80
--- NOTE | 2021-08-06 06:56 | NUR ---
Received pt from ED at 11:30 PM with hep drip 25,000 in D5 at 900/Hr to LFA 20G PIV and 0.9% NS at 50ml/hr to RFA 20G PIV. Pt is A+Ox4. As per ED report patient present with c/o MARIE and left CP that are resolved in ER prior to his arrival to PCU. Observed ambulates with ED stretcher to his room and into his bed with assistance.
--- NOTE | 2021-08-06 06:58 | NUR ---
Patient in room PCU 3009. I have received report from Twin COPPOLA and had the opportunity to ask questions and assume patient care.
--- NOTE | 2021-08-06 07:10 | NUR ---
Oserved pt with red rash to back and around neck and blood culture result received Gr pos cocci in aerobic. made aware. New order received to tx rash with nystatin pwd and no new order for pos blood culture.
[2021-08-06 07:28] LABS: BASOPHILS % (AUTO) 0.3 % (0-1); EOSINOPHILS # (AUTO) 0.2 X10'3 (0-0.9); EOSINOPHILS % (AUTO) 1.6 % (0-6); HEMATOCRIT 34.3 % (42.0-52.0); HEMOGLOBIN 11.4 g/dl (14.0-17.9); MEAN CORPUSCULAR HEMOGLOBIN 30.9 PG (27.0-31.0); MEAN CORPUSCULAR HGB CONC 33.3 g/dL (33.0-36.5); MEAN CORPUSCULAR VOLUME 92.7 FL (78-98); MEAN PLATELET VOLUME 7.2 FL (7.4-10.4); MONOCYTES # (AUTO) 0.3 X10'3 (0-0.9); MONOCYTES % (AUTO) 2.2 % (2-12); NEUTROPHILS # (AUTO) 12.9 X10'3 (1.8-7.7); NEUTROPHILS % (AUTO) 88.9 % (42-75); PLATELET COUNT 391 X10'3 (140-440); RED CELL DISTRIBUTION WIDTH 13.6 % (11.5-14.5); WHITE BLOOD COUNT 14.5 X10'3 (4.5-11.0)
[2021-08-06 07:42] LABS: ALANINE AMINOTRANSFERASE 47 U/L (12-78); ALBUMIN 1.7 G/DL (3.4-5.0); ALBUMIN/GLOBULIN RATIO 0.3 (1.1-1.5); ALKALINE PHOSPHATASE 95 IU/L (46-116); ANION GAP 8 (8-16); ASPARTATE AMINO TRANSFERASE 20 U/L (10-37); BILIRUBIN,TOTAL 0.4 MG/DL (0.1-1.0); BLOOD UREA NITROGEN 16 MG/DL (7-18); BUN/CREATININE RATIO 19.3 (5.4-32.0); CALCIUM 8.3 MG/DL (8.5-10.1); CHLORIDE 103 MMOL/L (99-107); CREATININE 0.83 MG/DL (0.60-1.10); GLUCOSE 114 MG/DL (70-104); SODIUM 136 MMOL/L (135-145); TOTAL CARBON DIOXIDE 24.9 MMOL/L (24-32); TOTAL PROTEIN 7.6 G/DL (6.4-8.2); eGFR > 90 ML/MIN
[2021-08-06] MEDS: K and/or MAG REPLACEMENT MC SCH ×2 (08:00→19:53)
[2021-08-06] MEDS: linezolid 600mg tablet PO SCH ×2 (08:21→21:40)
[2021-08-06] MEDS: docusate sod 100mg capsule PO SCH ×2 (08:21→21:39)
[2021-08-06] MEDS: thiamine 100mg tablet PO SCH (08:21)
[2021-08-06] MEDS: methylPREDNISolone sod succ 125mg/2ml vial IV SCH (08:21)
[2021-08-06] MEDS: lactobacillus rhamnosus 10,000 MMU CELLS/CAPSULE PO SCH ×2 (08:21→21:39)
[2021-08-06] MEDS: aspirin 81mg tab.chew PO SCH (08:21)
[2021-08-06] MEDS: levetiracetam 250mg tablet PO SCH ×2 (08:21→21:39)
[2021-08-06] MEDS: magnesium hydroxide 30ml (MOM) UD suspension PO SCH ×2 (08:21→21:39)
[2021-08-06] MEDS: nystatin 15 GM powder TP SCH ×3 (08:22→21:41)
[2021-08-06] MEDS: lactose-reduced food (Ensure Enlive) - 237ml bottle PO SCH ×2 (08:26→18:05)
[2021-08-06 09:39] LABS: HBSAG SCREEN Negative (Negative); HEP A AB, IGM Negative (Negative); HEPATITIS C ANTIBODY <0.1 s/co ratio (0.0-0.9)
[2021-08-06] MEDS: folic acid 1mg/0.2ml inj IV SCH (09:51)
--- NOTE | 2021-08-06 10:17 | NUR ---
Per a/c tech Radha, it is not safe to proceed with MRI due to stent in the carotid artery. She said she had spoke to the charge nurse Harjinder about it yesterday and that there was a note about it. I advised Radha to contact Dr. Rodriges about this issue directly, she said she will
[2021-08-06 11:00] VITALS: BP 112/67
--- NOTE | 2021-08-06 13:40 | NUR ---
Reassessment: Pt remains w/ adequate PO intake, mostly 100% of meals though some 50% on Heart healthy/CCHO diet. Pt mostly consumes 1 ONS per day and reports that he likes receiving them. LBM 08/03, receiving routine bowel care. Will continue to follow and make recommendations as appropriate pending further trends in PO intake. Recs: 1. Continue Heart healthy/SB6 diet with thin liquids per ST recs 2. Ensure Enlive BIDBD 3. Routine bowel care 4. Scaled weight this admit; weekly scaled weights thereafter Addendum: 08/06/21 at [address] Amended: Links added.
[2021-08-06 15:00] VITALS: BP 110/78
[2021-08-06 18:00] VITALS: BP 110/74
--- NOTE | 2021-08-06 18:30 | NUR ---
Patient in room PCU 3009. I have received report from Rasheeda COPPOLA and had the opportunity to ask questions and assume patient care.
--- NOTE | 2021-08-06 18:47 | NUR ---
Problems reprioritized. Patient report given, questions answered & plan of care reviewed with Yanelis COPPOLA.
[2021-08-06] MEDS: insulin glargine (Lantus) pen - multi-dose SQ SCH (21:00)
[2021-08-06] MEDS: enoxaparin 40mg/0.4ml syringe SQ SCH (21:40)
[2021-08-06] MEDS: atorvastatin 20mg tablet PO SCH (21:41)
[2021-08-06 22:00] VITALS: BP 116/65
[2021-08-07] VITALS (7 sets, daily range): BP systolic 108–123; BP diastolic 70–80
[2021-08-07] MEDS: HYDROcodone/acetaminophen 5mg/325mg tablet PO PRN ×3 (05:52→23:14)
--- NOTE | 2021-08-07 06:45 | NUR ---
Problems reprioritized. Patient report given, questions answered & plan of care reviewed with Leeanna COPPOLA.
[2021-08-07 06:47] LABS: BASOPHILS # (AUTO) 0.1 X10'3 (0-0.2); BASOPHILS % (AUTO) 0.4 % (0-1); EOSINOPHILS # (AUTO) 0.3 X10'3 (0-0.9); EOSINOPHILS % (AUTO) 1.9 % (0-6); HEMATOCRIT 33.2 % (42.0-52.0); LYMPHOCYTES # (AUTO) 1.2 X10'3 (1.1-4.8); LYMPHOCYTES % (AUTO) 8.4 % (21-51); MEAN CORPUSCULAR HEMOGLOBIN 31.3 PG (27.0-31.0); MEAN CORPUSCULAR HGB CONC 33.3 g/dL (33.0-36.5); MEAN CORPUSCULAR VOLUME 94.1 FL (78-98); MEAN PLATELET VOLUME 7.5 FL (7.4-10.4); MONOCYTES # (AUTO) 0.4 X10'3 (0-0.9); NEUTROPHILS % (AUTO) 86.3 % (42-75); PLATELET COUNT 421 X10'3 (140-440); RED BLOOD COUNT 3.52 X10'6 (4.70-6.10); RED CELL DISTRIBUTION WIDTH 13.8 % (11.5-14.5); WHITE BLOOD COUNT 13.9 X10'3 (4.5-11.0)
--- NOTE | 2021-08-07 07:12 | NUR ---
Patient in room PCU 3009. I have received report from Yanelis COPPOLA and had the opportunity to ask questions and assume patient care.
[2021-08-07 07:27] LABS: ALANINE AMINOTRANSFERASE 44 U/L (12-78); ALBUMIN 1.7 G/DL (3.4-5.0); ALBUMIN/GLOBULIN RATIO 0.3 (1.1-1.5); ALKALINE PHOSPHATASE 95 IU/L (46-116); ANION GAP 9 (8-16); ASPARTATE AMINO TRANSFERASE 17 U/L (10-37); BILIRUBIN,TOTAL 0.3 MG/DL (0.1-1.0); BLOOD UREA NITROGEN 19 MG/DL (7-18); CALCIUM 8.4 MG/DL (8.5-10.1); CHLORIDE 104 MMOL/L (99-107); CREATININE 0.76 MG/DL (0.60-1.10); GLUCOSE 101 MG/DL (70-104); SODIUM 137 MMOL/L (135-145); TOTAL CARBON DIOXIDE 24.3 MMOL/L (24-32); TOTAL PROTEIN 7.5 G/DL (6.4-8.2); eGFR > 90 ML/MIN
[2021-08-07] MEDS: lactose-reduced food (Ensure Enlive) - 237ml bottle PO SCH ×2 (07:30→17:42)
[2021-08-07] MEDS: K and/or MAG REPLACEMENT MC SCH ×2 (08:00→20:00)
[2021-08-07] MEDS: magnesium hydroxide 30ml (MOM) UD suspension PO SCH ×2 (08:00→21:00)
[2021-08-07] MEDS: nystatin 15 GM powder TP SCH ×3 (08:00→21:00)
[2021-08-07] MEDS: levetiracetam 250mg tablet PO SCH ×2 (09:16→21:00)
[2021-08-07] MEDS: lactobacillus rhamnosus 10,000 MMU CELLS/CAPSULE PO SCH ×2 (09:16→20:59)
[2021-08-07] MEDS: linezolid 600mg tablet PO SCH (09:16)
[2021-08-07] MEDS: thiamine 100mg tablet PO SCH (09:16)
[2021-08-07] MEDS: aspirin 81mg tab.chew PO SCH (09:16)
[2021-08-07] MEDS: docusate sod 100mg capsule PO SCH ×2 (09:16→21:00)
[2021-08-07] MEDS: normal saline 1000ml 1,000 ML IV SCH (09:17)
[2021-08-07] MEDS: diphenhydrAMINE 25mg capsule PO PRN ×2 (09:25→23:14)
[2021-08-07 11:29] LABS: C-REACTIVE PROTEIN 3.36 MG/DL (0.0-0.5)
[2021-08-07] MEDS: NORMAL SALINE IV SCH ×2 (12:11→20:59)
[2021-08-07] MEDS: CEFTAROLINE IV SCH ×2 (12:11→20:59)
--- NOTE | 2021-08-07 12:12 | NUR ---
PAGER ID: [phone] MESSAGE: Marino [phone] Re: Benedict 3009 + BC please call + BC Aerobic bottle Left hand took 25.76 hours to result Gram + Cocci and clusters
[2021-08-07] MEDS ORDERED: iohexol 300mg/ml 100ml inj. ONE (13:26)
--- NOTE | 2021-08-07 18:18 | NUR ---
Patient in room PCU 3009. I have received report from ANAT Durán and had the opportunity to ask questions and assume patient care.
--- NOTE | 2021-08-07 18:38 | NUR ---
Problems reprioritized. Patient report given, questions answered & plan of care reviewed with Sujatha Jean RN.
[2021-08-07] MEDS: atorvastatin 20mg tablet PO SCH (20:59)
[2021-08-07] MEDS: enoxaparin 40mg/0.4ml syringe SQ SCH (21:00)
[2021-08-07] MEDS: insulin glargine (Lantus) pen - multi-dose SQ SCH (21:00)
--- NOTE | 2021-08-07 22:39 | NUR ---
Patient kikaiendeb called at approx 2200 asking for her email address to be used for the patient portal. Patient was sleeping at that time. Patient is now awake, verified it was okay per patient, to use girliends email address as requested.
[2021-08-08] VITALS (16 sets, daily range): BP systolic 102–126; BP diastolic 67–75
[2021-08-08] MEDS: HYDROcodone/acetaminophen 5mg/325mg tablet PO PRN ×2 (03:51→09:43)
[2021-08-08] MEDS: CEFTAROLINE IV SCH ×3 (03:51→21:45)
[2021-08-08] MEDS: NORMAL SALINE IV SCH ×3 (03:51→21:45)
--- NOTE | 2021-08-08 06:53 | NUR ---
Problems reprioritized. Patient report given, questions answered & plan of care reviewed with ANAT South.
[2021-08-08 07:10] LABS: BASOPHILS % (AUTO) 0.3 % (0-1); EOSINOPHILS # (AUTO) 0.2 X10'3 (0-0.9); EOSINOPHILS % (AUTO) 2.2 % (0-6); HEMATOCRIT 34.7 % (42.0-52.0); HEMOGLOBIN 11.5 g/dl (14.0-17.9); LYMPHOCYTES % (AUTO) 8.7 % (21-51); MEAN CORPUSCULAR HEMOGLOBIN 31.3 PG (27.0-31.0); MEAN CORPUSCULAR HGB CONC 33.3 g/dL (33.0-36.5); MEAN PLATELET VOLUME 7.3 FL (7.4-10.4); MONOCYTES # (AUTO) 0.3 X10'3 (0-0.9); MONOCYTES % (AUTO) 2.5 % (2-12); NEUTROPHILS # (AUTO) 9.6 X10'3 (1.8-7.7); NEUTROPHILS % (AUTO) 86.3 % (42-75); PLATELET COUNT 355 X10'3 (140-440); RED BLOOD COUNT 3.69 X10'6 (4.70-6.10); RED CELL DISTRIBUTION WIDTH 14.2 % (11.5-14.5); WHITE BLOOD COUNT 11.1 X10'3 (4.5-11.0)
[2021-08-08] MEDS: lactose-reduced food (Ensure Enlive) - 237ml bottle PO SCH ×2 (07:30→17:30)
[2021-08-08 07:58] LABS: ALANINE AMINOTRANSFERASE 36 U/L (12-78); ALBUMIN 1.8 G/DL (3.4-5.0); ALBUMIN/GLOBULIN RATIO 0.3 (1.1-1.5); ALKALINE PHOSPHATASE 94 IU/L (46-116); ANION GAP 8 (8-16); ASPARTATE AMINO TRANSFERASE 15 U/L (10-37); BILIRUBIN,TOTAL 0.5 MG/DL (0.1-1.0); BLOOD UREA NITROGEN 15 MG/DL (7-18); BUN/CREATININE RATIO 20.5 (5.4-32.0); CALCIUM 8.5 MG/DL (8.5-10.1); CHLORIDE 101 MMOL/L (99-107); CREATININE 0.73 MG/DL (0.60-1.10); GLUCOSE 99 MG/DL (70-104); POTASSIUM 4.2 MMOL/L (3.5-5.1); SODIUM 135 MMOL/L (135-145); TOTAL CARBON DIOXIDE 25.9 MMOL/L (24-32); TOTAL PROTEIN 7.7 G/DL (6.4-8.2); eGFR > 90 ML/MIN
[2021-08-08] MEDS: magnesium hydroxide 30ml (MOM) UD suspension PO SCH ×2 (08:00→21:46)
[2021-08-08] MEDS: aspirin 81mg tab.chew PO SCH (08:00)
[2021-08-08] MEDS: docusate sod 100mg capsule PO SCH ×2 (08:00→20:00)
[2021-08-08] MEDS: K and/or MAG REPLACEMENT MC SCH ×2 (08:00→20:00)
[2021-08-08] MEDS: thiamine 100mg tablet PO SCH (08:43)
[2021-08-08] MEDS: lactobacillus rhamnosus 10,000 MMU CELLS/CAPSULE PO SCH ×2 (08:43→21:46)
[2021-08-08] MEDS: levetiracetam 250mg tablet PO SCH ×2 (08:43→21:46)
[2021-08-08] MEDS: folic acid 1mg tablet PO SCH (08:43)
[2021-08-08] MEDS: nystatin 15 GM powder TP SCH ×3 (08:44→21:00)
--- NOTE | 2021-08-08 11:37 | NUR ---
Page to Dr. Rodriges [phone] Roderick Mcmullen- Blood cultures positive x2 today. Attempted to call infectious disease. [place] [phone] Nico Delgado and left voice message at [phone]
[2021-08-08] MEDS: diphenhydrAMINE 25mg capsule PO PRN (14:03)
[2021-08-08] MEDS ORDERED: fentaNYL/PF 50MCG/1 ML 2ML syringe ONE (16:11)
[2021-08-08] MEDS ORDERED: midazolam 1 mg/ML 2ml injection ONE (16:11)
[2021-08-08] MEDS: acetaminophen 325mg tablet PO PRN (17:43)
--- NOTE | 2021-08-08 18:37 | NUR ---
Problems reprioritized. Patient report given, questions answered & plan of care reviewed with Twin COPPOLA.
[2021-08-08] MEDS: enoxaparin 40mg/0.4ml syringe SQ SCH (20:00)
[2021-08-08] MEDS: insulin glargine (Lantus) pen - multi-dose SQ SCH (21:00)
[2021-08-08] MEDS: atorvastatin 20mg tablet PO SCH (21:46)
[2021-08-09] VITALS: BP 104/75
--- NOTE | 2021-08-09 03:15 | NUR ---
Patient in room ERINN 352. I have received report from Twin COPPOLA and had the opportunity to ask questions and assume patient care.
--- NOTE | 2021-08-09 06:40 | NUR ---
Patient in room ERINN 352. I have received report from Shani COPPOLA and had the opportunity to ask questions and assume patient care.
[2021-08-09 06:58] LABS: BASOPHILS % (AUTO) 0.3 % (0-1); EOSINOPHILS # (AUTO) 0.2 X10'3 (0-0.9); EOSINOPHILS % (AUTO) 2.2 % (0-6); HEMATOCRIT 35.7 % (42.0-52.0); LYMPHOCYTES # (AUTO) 0.8 X10'3 (1.1-4.8); LYMPHOCYTES % (AUTO) 7.2 % (21-51); MEAN CORPUSCULAR HEMOGLOBIN 31.6 PG (27.0-31.0); MEAN CORPUSCULAR HGB CONC 33.7 g/dL (33.0-36.5); MEAN CORPUSCULAR VOLUME 93.7 FL (78-98); MEAN PLATELET VOLUME 7.4 FL (7.4-10.4); MONOCYTES # (AUTO) 0.2 X10'3 (0-0.9); MONOCYTES % (AUTO) 2.1 % (2-12); NEUTROPHILS # (AUTO) 9.3 X10'3 (1.8-7.7); NEUTROPHILS % (AUTO) 88.2 % (42-75); PLATELET COUNT 325 X10'3 (140-440); RED BLOOD COUNT 3.81 X10'6 (4.70-6.10); RED CELL DISTRIBUTION WIDTH 13.6 % (11.5-14.5); WHITE BLOOD COUNT 10.5 X10'3 (4.5-11.0)
[2021-08-09 07:15] LABS: ALANINE AMINOTRANSFERASE 29 U/L (12-78); ALBUMIN 1.8 G/DL (3.4-5.0); ALBUMIN/GLOBULIN RATIO 0.3 (1.1-1.5); ALKALINE PHOSPHATASE 92 IU/L (46-116); ANION GAP 5 (8-16); ASPARTATE AMINO TRANSFERASE 14 U/L (10-37); BILIRUBIN,TOTAL 0.7 MG/DL (0.1-1.0); BLOOD UREA NITROGEN 14 MG/DL (7-18); BUN/CREATININE RATIO 13.9 (5.4-32.0); CALCIUM 8.4 MG/DL (8.5-10.1); CHLORIDE 100 MMOL/L (99-107); CREATININE 1.01 MG/DL (0.60-1.10); GLUCOSE 115 MG/DL (70-104); POTASSIUM 4.4 MMOL/L (3.5-5.1); SODIUM 132 MMOL/L (135-145); TOTAL CARBON DIOXIDE 27.5 MMOL/L (24-32); eGFR 76 ML/MIN
[2021-08-09] MEDS: lactose-reduced food (Ensure Enlive) - 237ml bottle PO SCH ×2 (07:30→17:31)
[2021-08-09] MEDS: NORMAL SALINE IV SCH ×3 (07:30→21:25)
[2021-08-09] MEDS: CEFTAROLINE IV SCH ×3 (07:30→21:25)
[2021-08-09] MEDS: aspirin 81mg tab.chew PO SCH (07:33)
[2021-08-09] MEDS: lactobacillus rhamnosus 10,000 MMU CELLS/CAPSULE PO SCH ×2 (07:33→21:25)
[2021-08-09] MEDS: levetiracetam 250mg tablet PO SCH ×2 (07:33→21:25)
[2021-08-09] MEDS: magnesium hydroxide 30ml (MOM) UD suspension PO SCH ×2 (07:33→20:00)
[2021-08-09] MEDS: folic acid 1mg tablet PO SCH (07:33)
[2021-08-09] MEDS: thiamine 100mg tablet PO SCH (07:33)
[2021-08-09] MEDS: docusate sod 100mg capsule PO SCH ×2 (07:33→21:25)
--- NOTE | 2021-08-09 07:38 | NUR ---
Problems reprioritized. Patient report given, questions answered & plan of care reviewed with Libby COPPOLA.
[2021-08-09] MEDS: HYDROcodone/acetaminophen 5mg/325mg tablet PO PRN ×2 (07:46→17:35)
[2021-08-09] MEDS: nystatin 15 GM powder TP SCH ×3 (08:00→21:00)
[2021-08-09] MEDS: K and/or MAG REPLACEMENT MC SCH ×2 (08:00→20:00)
[2021-08-09 11:45] VITALS: BP 104/65
--- NOTE | 2021-08-09 12:33 | NUR ---
Contacted Susana with IR / [facility] to come and assess patients NIGEL drain placed by IR. Received in report that patient partially pulled out drain. Susana will contact Gee Helm to assess. Susana called back and stated that Gee Helm already came by and assessed drain and applied more tape and stated it was fine. Libby Membreno RN aware.
--- NOTE | 2021-08-09 12:37 | NUR ---
patient seen by IR drain reassessed. Iv re -sited,, patient compliant.
[2021-08-09] MEDS: normal saline 1000ml 1,000 ML IV SCH (13:09)
[2021-08-09 18:00] VITALS: BP 111/73
--- NOTE | 2021-08-09 18:19 | NUR ---
patient refused PT despite all advantages of partaking discussed with patient. medicated with Laotto for pain x2. NIGEL 10mls observed in chamber. Report given to Diego COPPOLA
[2021-08-09] MEDS: insulin glargine (Lantus) pen - multi-dose SQ SCH (21:00)
[2021-08-09] MEDS: atorvastatin 20mg tablet PO SCH (21:24)
[2021-08-09] MEDS: enoxaparin 40mg/0.4ml syringe SQ SCH (21:26)
[2021-08-10 00:08] VITALS: BP 120/69
[2021-08-10] MEDS: NORMAL SALINE IV SCH ×3 (04:00→20:24)
[2021-08-10] MEDS: CEFTAROLINE IV SCH ×3 (04:00→20:24)
--- NOTE | 2021-08-10 06:42 | NUR ---
I have received report from Diego COPPOLA and had the opportunity to ask questions and assume patient care.
[2021-08-10 06:44] LABS: BASOPHILS % (AUTO) 0.2 % (0-1); EOSINOPHILS # (AUTO) 0.4 X10'3 (0-0.9); EOSINOPHILS % (AUTO) 3.6 % (0-6); HEMATOCRIT 31.9 % (42.0-52.0); LYMPHOCYTES # (AUTO) 0.9 X10'3 (1.1-4.8); LYMPHOCYTES % (AUTO) 9.1 % (21-51); MEAN CORPUSCULAR HEMOGLOBIN 31.8 PG (27.0-31.0); MEAN CORPUSCULAR HGB CONC 34.5 g/dL (33.0-36.5); MEAN CORPUSCULAR VOLUME 92.2 FL (78-98); MEAN PLATELET VOLUME 7.5 FL (7.4-10.4); MONOCYTES # (AUTO) 0.3 X10'3 (0-0.9); MONOCYTES % (AUTO) 2.7 % (2-12); NEUTROPHILS # (AUTO) 8.4 X10'3 (1.8-7.7); NEUTROPHILS % (AUTO) 84.4 % (42-75); PLATELET COUNT 276 X10'3 (140-440); RED BLOOD COUNT 3.46 X10'6 (4.70-6.10); RED CELL DISTRIBUTION WIDTH 13.9 % (11.5-14.5); WHITE BLOOD COUNT 9.9 X10'3 (4.5-11.0)
[2021-08-10 07:09] LABS: ALANINE AMINOTRANSFERASE 26 U/L (12-78); ALBUMIN 1.7 G/DL (3.4-5.0); ALBUMIN/GLOBULIN RATIO 0.3 (1.1-1.5); ALKALINE PHOSPHATASE 85 IU/L (46-116); ANION GAP 8 (8-16); ASPARTATE AMINO TRANSFERASE 13 U/L (10-37); BILIRUBIN,TOTAL 0.5 MG/DL (0.1-1.0); BLOOD UREA NITROGEN 16 MG/DL (7-18); BUN/CREATININE RATIO 19.8 (5.4-32.0); CALCIUM 8.2 MG/DL (8.5-10.1); CHLORIDE 99 MMOL/L (99-107); CREATININE 0.81 MG/DL (0.60-1.10); GLUCOSE 116 MG/DL (70-104); POTASSIUM 4.2 MMOL/L (3.5-5.1); SODIUM 133 MMOL/L (135-145); TOTAL CARBON DIOXIDE 26.4 MMOL/L (24-32); TOTAL PROTEIN 7.8 G/DL (6.4-8.2); eGFR > 90 ML/MIN
[2021-08-10] MEDS: lactose-reduced food (Ensure Enlive) - 237ml bottle PO SCH ×2 (07:30→11:44)
[2021-08-10] MEDS: HYDROcodone/acetaminophen 5mg/325mg tablet PO PRN ×3 (07:37→21:26)
[2021-08-10] MEDS: aspirin 81mg tab.chew PO SCH (07:38)
[2021-08-10] MEDS: levetiracetam 250mg tablet PO SCH ×2 (07:38→20:24)
[2021-08-10] MEDS: thiamine 100mg tablet PO SCH (07:38)
[2021-08-10] MEDS: folic acid 1mg tablet PO SCH (07:38)
[2021-08-10] MEDS: docusate sod 100mg capsule PO SCH ×2 (07:38→20:42)
[2021-08-10] MEDS: lactobacillus rhamnosus 10,000 MMU CELLS/CAPSULE PO SCH ×2 (07:39→20:42)
[2021-08-10] MEDS: nystatin 15 GM powder TP SCH ×3 (07:40→21:00)
[2021-08-10 08:00] VITALS: BP 115/60
[2021-08-10] MEDS: K and/or MAG REPLACEMENT MC SCH ×2 (08:00→20:00)
[2021-08-10] MEDS: magnesium hydroxide 30ml (MOM) UD suspension PO SCH ×2 (08:00→20:24)
[2021-08-10 11:00] VITALS: BP 110/65
[2021-08-10 18:00] VITALS: BP 105/70
--- NOTE | 2021-08-10 18:56 | NUR ---
Patient in room ERINN 352. I have received report from Rosalinda COPPOLA and had the opportunity to ask questions and assume patient care.
[2021-08-10] MEDS: atorvastatin 20mg tablet PO SCH (20:24)
[2021-08-10] MEDS: enoxaparin 40mg/0.4ml syringe SQ SCH (20:25)
[2021-08-10] MEDS: insulin glargine (Lantus) pen - multi-dose SQ SCH (21:00)
[2021-08-11] VITALS: BP 105/69
[2021-08-11] MEDS: CEFTAROLINE IV SCH ×4 (04:08→20:44)
[2021-08-11] MEDS: NORMAL SALINE IV SCH ×4 (04:08→20:44)
[2021-08-11] MEDS: HYDROcodone/acetaminophen 5mg/325mg tablet PO PRN ×3 (05:37→22:35)
--- NOTE | 2021-08-11 06:29 | NUR ---
Problems reprioritized. Patient report given, questions answered & plan of care reviewed with Lorraine COPPOLA.
[2021-08-11 06:48] VITALS: BP 94/60
[2021-08-11] MEDS: lactose-reduced food (Ensure Enlive) - 237ml bottle PO SCH ×2 (07:30→18:29)
[2021-08-11] MEDS: K and/or MAG REPLACEMENT MC SCH ×2 (08:00→20:00)
[2021-08-11] MEDS: magnesium hydroxide 30ml (MOM) UD suspension PO SCH ×2 (08:00→20:00)
[2021-08-11] MEDS: normal saline 1000ml 1,000 ML IV SCH ×2 (09:00→20:44)
[2021-08-11] MEDS: folic acid 1mg tablet PO SCH (09:07)
[2021-08-11] MEDS: lactobacillus rhamnosus 10,000 MMU CELLS/CAPSULE PO SCH ×2 (09:07→20:46)
[2021-08-11] MEDS: levetiracetam 250mg tablet PO SCH ×2 (09:07→20:47)
[2021-08-11] MEDS: docusate sod 100mg capsule PO SCH ×2 (09:07→20:45)
[2021-08-11] MEDS: thiamine 100mg tablet PO SCH (09:07)
[2021-08-11] MEDS: aspirin 81mg tab.chew PO SCH (09:07)
[2021-08-11] MEDS: nystatin 15 GM powder TP SCH ×3 (09:08→21:43)
[2021-08-11 10:02] LABS: BASOPHILS % (AUTO) 0.4 % (0-1); EOSINOPHILS # (AUTO) 0.3 X10'3 (0-0.9); HEMOGLOBIN 10.8 g/dl (14.0-17.9); LYMPHOCYTES # (AUTO) 0.8 X10'3 (1.1-4.8); LYMPHOCYTES % (AUTO) 13.3 % (21-51); MEAN CORPUSCULAR HEMOGLOBIN 31.6 PG (27.0-31.0); MEAN CORPUSCULAR HGB CONC 33.9 g/dL (33.0-36.5); MEAN CORPUSCULAR VOLUME 93.4 FL (78-98); MONOCYTES # (AUTO) 0.2 X10'3 (0-0.9); MONOCYTES % (AUTO) 4.1 % (2-12); NEUTROPHILS # (AUTO) 4.7 X10'3 (1.8-7.7); NEUTROPHILS % (AUTO) 77.2 % (42-75); PLATELET COUNT 241 X10'3 (140-440); RED BLOOD COUNT 3.43 X10'6 (4.70-6.10); RED CELL DISTRIBUTION WIDTH 14.2 % (11.5-14.5); WHITE BLOOD COUNT 6.1 X10'3 (4.5-11.0)
[2021-08-11 10:15] LABS: ALANINE AMINOTRANSFERASE 21 U/L (12-78); ALBUMIN 1.7 G/DL (3.4-5.0); ALBUMIN/GLOBULIN RATIO 0.3 (1.1-1.5); ALKALINE PHOSPHATASE 84 IU/L (46-116); ANION GAP 10 (8-16); ASPARTATE AMINO TRANSFERASE 12 U/L (10-37); BILIRUBIN,TOTAL 0.2 MG/DL (0.1-1.0); BLOOD UREA NITROGEN 14 MG/DL (7-18); BUN/CREATININE RATIO 16.7 (5.4-32.0); CALCIUM 8.2 MG/DL (8.5-10.1); CHLORIDE 101 MMOL/L (99-107); CREATININE 0.84 MG/DL (0.60-1.10); GLUCOSE 141 MG/DL (70-104); POTASSIUM 4.3 MMOL/L (3.5-5.1); SODIUM 137 MMOL/L (135-145); TOTAL CARBON DIOXIDE 26.5 MMOL/L (24-32); TOTAL PROTEIN 7.6 G/DL (6.4-8.2); eGFR > 90 ML/MIN
[2021-08-11 11:00] VITALS: BP 117/69
--- NOTE | 2021-08-11 17:59 | NUR ---
Problems reprioritized. Patient report given, questions answered & plan of care reviewed with ANAT Wellington.
[2021-08-11 18:00] VITALS: BP_SYST 114; BP_SYST 130; BP_DIAS 73; BP_DIAS 76
--- NOTE | 2021-08-11 18:48 | NUR ---
I have received report from ANAT Peters and had the opportunity to ask questions and assume patient care.
[2021-08-11] MEDS: atorvastatin 20mg tablet PO SCH (20:46)
[2021-08-11] MEDS: enoxaparin 40mg/0.4ml syringe SQ SCH (20:48)
[2021-08-11] MEDS: insulin glargine (Lantus) pen - multi-dose SQ SCH (21:00)
--- NOTE | 2021-08-11 22:10 | NUR ---
Patients IV infiltrated, two IV attempts were unsuccessful, patient refusing any further tries at this time.
[2021-08-12] MEDS: CEFTAROLINE IV SCH ×4 (03:32→20:06)
[2021-08-12] MEDS: NORMAL SALINE IV SCH ×4 (03:32→20:06)
--- NOTE | 2021-08-12 05:54 | NUR ---
Patient refused labs this AM. I told Lab tach that it was ok to re time the labs for 0900.
--- NOTE | 2021-08-12 06:42 | NUR ---
Problems reprioritized. Patient report given, questions answered & plan of care reviewed with ANAT Velazquez.
--- NOTE | 2021-08-12 06:45 | NUR ---
Patient in room [facility]. I have received report from Amish COPPOLA and had the opportunity to ask questions and assume patient care.
[2021-08-12] MEDS: lactose-reduced food (Ensure Enlive) - 237ml bottle PO SCH ×2 (07:30→18:12)
[2021-08-12 08:00] VITALS: BP 125/70
[2021-08-12] MEDS: K and/or MAG REPLACEMENT MC SCH ×2 (08:00→20:00)
[2021-08-12] MEDS: nystatin 15 GM powder TP SCH ×3 (08:00→20:10)
[2021-08-12] MEDS: magnesium hydroxide 30ml (MOM) UD suspension PO SCH ×3 (08:00→20:06)
--- NOTE | 2021-08-12 08:16 | NUR ---
Page sent to PICC RN.... Rylee Fontenot: Patient needs PICC line. Consent is signed and in the chart. Thank you! Addendum: 08/12/21 at 0827 by Cheryl Rodriguez RN Received telephone message from PICC RN asking to page her again when the consent is signed ...... Page sent to PICC RN... Rylee Fontenot: Consent is signed and in the chart. Thank you!
[2021-08-12 09:49] LABS: BASOPHILS % (AUTO) 0.4 % (0-1); EOSINOPHILS # (AUTO) 0.3 X10'3 (0-0.9); EOSINOPHILS % (AUTO) 5.4 % (0-6); HEMATOCRIT 29.4 % (42.0-52.0); LYMPHOCYTES # (AUTO) 0.7 X10'3 (1.1-4.8); LYMPHOCYTES % (AUTO) 11.3 % (21-51); MEAN CORPUSCULAR HEMOGLOBIN 31.7 PG (27.0-31.0); MEAN CORPUSCULAR VOLUME 93.1 FL (78-98); MONOCYTES # (AUTO) 0.3 X10'3 (0-0.9); MONOCYTES % (AUTO) 4.9 % (2-12); NEUTROPHILS # (AUTO) 4.9 X10'3 (1.8-7.7); PLATELET COUNT 239 X10'3 (140-440); RED BLOOD COUNT 3.16 X10'6 (4.70-6.10); RED CELL DISTRIBUTION WIDTH 13.9 % (11.5-14.5); WHITE BLOOD COUNT 6.3 X10'3 (4.5-11.0)
[2021-08-12] MEDS: aspirin 81mg tab.chew PO SCH (10:11)
[2021-08-12] MEDS: docusate sod 100mg capsule PO SCH ×2 (10:11→20:06)
[2021-08-12] MEDS: lactobacillus rhamnosus 10,000 MMU CELLS/CAPSULE PO SCH ×2 (10:12→20:06)
[2021-08-12] MEDS: thiamine 100mg tablet PO SCH (10:12)
[2021-08-12] MEDS: folic acid 1mg tablet PO SCH (10:12)
[2021-08-12] MEDS: levetiracetam 250mg tablet PO SCH ×2 (10:12→20:06)
[2021-08-12 10:18] LABS: ALANINE AMINOTRANSFERASE 21 U/L (12-78); ALBUMIN 1.6 G/DL (3.4-5.0); ALBUMIN/GLOBULIN RATIO 0.3 (1.1-1.5); ALKALINE PHOSPHATASE 81 IU/L (46-116); ANION GAP 9 (8-16); ASPARTATE AMINO TRANSFERASE 14 U/L (10-37); BILIRUBIN,TOTAL 0.2 MG/DL (0.1-1.0); BLOOD UREA NITROGEN 9 MG/DL (7-18); BUN/CREATININE RATIO 11.8 (5.4-32.0); CHLORIDE 101 MMOL/L (99-107); CREATININE 0.76 MG/DL (0.60-1.10); GLUCOSE 132 MG/DL (70-104); SODIUM 136 MMOL/L (135-145); TOTAL CARBON DIOXIDE 26.3 MMOL/L (24-32); TOTAL PROTEIN 7.8 G/DL (6.4-8.2); eGFR > 90 ML/MIN
[2021-08-12 11:00] VITALS: BP 111/63
[2021-08-12] MEDS ORDERED: iohexol 300mg/ml 100ml inj. ONE (14:39)
[2021-08-12] MEDS: HYDROcodone/acetaminophen 5mg/325mg tablet PO PRN ×2 (16:13→20:23)
[2021-08-12 18:00] VITALS: BP 121/66
--- NOTE | 2021-08-12 18:35 | NUR ---
Patient in room [facility]. I have received report from Chely Student Nurse and ANAT Velazquez and had the opportunity to ask questions and assume patient care.
--- NOTE | 2021-08-12 18:44 | NUR ---
Problems reprioritized. Patient report given, questions answered & plan of care reviewed with Gabi COPPOLA.
[2021-08-12] MEDS: atorvastatin 20mg tablet PO SCH (20:06)
[2021-08-12] MEDS: enoxaparin 40mg/0.4ml syringe SQ SCH (20:09)
[2021-08-12] MEDS: insulin glargine (Lantus) pen - multi-dose SQ SCH (21:00)
[2021-08-13] VITALS (15 sets, daily range): BP systolic 113–138; BP diastolic 56–80
[2021-08-13] MEDS: HYDROcodone/acetaminophen 5mg/325mg tablet PO PRN ×2 (02:16→09:06)
[2021-08-13] MEDS: CEFTAROLINE IV SCH ×3 (04:31→20:51)
[2021-08-13] MEDS: NORMAL SALINE IV SCH ×3 (04:31→20:51)
--- NOTE | 2021-08-13 06:23 | NUR ---
Student documentation: I have reviewed and agree with all interventions, assessments performed and documented by Johan Day Care Assistant.
[2021-08-13 06:25] LABS: BASOPHILS % (AUTO) 0.2 % (0-1); EOSINOPHILS # (AUTO) 0.4 X10'3 (0-0.9); EOSINOPHILS % (AUTO) 6.3 % (0-6); HEMATOCRIT 29.9 % (42.0-52.0); HEMOGLOBIN 10.1 g/dl (14.0-17.9); LYMPHOCYTES # (AUTO) 0.9 X10'3 (1.1-4.8); MEAN CORPUSCULAR HEMOGLOBIN 31.7 PG (27.0-31.0); MEAN CORPUSCULAR HGB CONC 33.7 g/dL (33.0-36.5); MEAN PLATELET VOLUME 7.3 FL (7.4-10.4); MONOCYTES # (AUTO) 0.3 X10'3 (0-0.9); MONOCYTES % (AUTO) 4.8 % (2-12); NEUTROPHILS # (AUTO) 4.6 X10'3 (1.8-7.7); NEUTROPHILS % (AUTO) 74.7 % (42-75); PLATELET COUNT 244 X10'3 (140-440); RED BLOOD COUNT 3.18 X10'6 (4.70-6.10); RED CELL DISTRIBUTION WIDTH 13.9 % (11.5-14.5); WHITE BLOOD COUNT 6.2 X10'3 (4.5-11.0)
[2021-08-13 06:42] LABS: ALANINE AMINOTRANSFERASE 21 U/L (12-78); ALBUMIN 1.7 G/DL (3.4-5.0); ALBUMIN/GLOBULIN RATIO 0.3 (1.1-1.5); ALKALINE PHOSPHATASE 79 IU/L (46-116); ANION GAP 5 (8-16); ASPARTATE AMINO TRANSFERASE 14 U/L (10-37); BILIRUBIN,TOTAL 0.3 MG/DL (0.1-1.0); BLOOD UREA NITROGEN 9 MG/DL (7-18); CALCIUM 8.5 MG/DL (8.5-10.1); CHLORIDE 102 MMOL/L (99-107); CREATININE 0.82 MG/DL (0.60-1.10); GLUCOSE 108 MG/DL (70-104); SODIUM 133 MMOL/L (135-145); eGFR > 90 ML/MIN
[2021-08-13] MEDS: lactose-reduced food (Ensure Enlive) - 237ml bottle PO SCH ×2 (07:30→17:30)
[2021-08-13] MEDS: magnesium hydroxide 30ml (MOM) UD suspension PO SCH ×2 (08:00→20:00)
[2021-08-13] MEDS: nystatin 15 GM powder TP SCH ×3 (08:00→20:58)
[2021-08-13] MEDS: K and/or MAG REPLACEMENT MC SCH ×2 (08:00→20:00)
[2021-08-13] MEDS: docusate sod 100mg capsule PO SCH ×2 (08:00→20:52)
[2021-08-13] MEDS: normal saline 1000ml 1,000 ML IV SCH (09:00)
[2021-08-13] MEDS: aspirin 81mg tab.chew PO SCH (09:05)
[2021-08-13] MEDS: thiamine 100mg tablet PO SCH (09:05)
[2021-08-13] MEDS: lactobacillus rhamnosus 10,000 MMU CELLS/CAPSULE PO SCH ×2 (09:05→20:52)
[2021-08-13] MEDS: folic acid 1mg tablet PO SCH (09:06)
[2021-08-13] MEDS: levetiracetam 250mg tablet PO SCH ×2 (09:07→20:52)
[2021-08-13] MEDS ORDERED: fentaNYL/PF 50MCG/1 ML 2ML syringe ONE (17:55)
[2021-08-13] MEDS ORDERED: midazolam 1 mg/ML 2ml injection ONE (17:55)
--- NOTE | 2021-08-13 18:36 | NUR ---
Patient in room [facility]. I have received report from ANAT Velazquez and had the opportunity to ask questions and assume patient care.
--- NOTE | 2021-08-13 18:39 | NUR ---
Problems reprioritized. Patient report given, questions answered & plan of care reviewed with Gabi COPPOLA.
[2021-08-13] MEDS: enoxaparin 40mg/0.4ml syringe SQ SCH (20:51)
[2021-08-13] MEDS: atorvastatin 20mg tablet PO SCH (20:52)
[2021-08-13] MEDS: insulin glargine (Lantus) pen - multi-dose SQ SCH (20:58)
[2021-08-14] VITALS (18 sets, daily range): BP systolic 104–128; BP diastolic 59–75
[2021-08-14] MEDS: NORMAL SALINE IV SCH ×3 (04:27→21:42)
[2021-08-14] MEDS: CEFTAROLINE IV SCH ×3 (04:27→21:42)
[2021-08-14] MEDS: normal saline 1000ml 1,000 ML IV SCH (04:28)
[2021-08-14] MEDS: HYDROcodone/acetaminophen 5mg/325mg tablet PO PRN ×3 (04:34→17:59)
--- NOTE | 2021-08-14 06:23 | NUR ---
Problems reprioritized. Patient report given, questions answered & plan of care reviewed with ANAT Velazquez.
[2021-08-14] MEDS: lactose-reduced food (Ensure Enlive) - 237ml bottle PO SCH ×3 (07:30→18:30)
[2021-08-14] MEDS: thiamine 100mg tablet PO SCH (08:00)
[2021-08-14] MEDS: K and/or MAG REPLACEMENT MC SCH ×2 (08:00→20:00)
[2021-08-14] MEDS: magnesium hydroxide 30ml (MOM) UD suspension PO SCH ×2 (08:00→21:42)
[2021-08-14] MEDS: nystatin 15 GM powder TP SCH ×3 (08:00→21:42)
[2021-08-14] MEDS: docusate sod 100mg capsule PO SCH ×2 (08:00→21:43)
[2021-08-14] MEDS: aspirin 81mg tab.chew PO SCH (08:47)
[2021-08-14] MEDS: levetiracetam 250mg tablet PO SCH ×2 (08:47→21:43)
[2021-08-14] MEDS: folic acid 1mg tablet PO SCH (08:47)
[2021-08-14] MEDS: lactobacillus rhamnosus 10,000 MMU CELLS/CAPSULE PO SCH ×2 (08:47→21:43)
--- NOTE | 2021-08-14 12:04 | NUR ---
Reassessment: Pt's meal intake has declined some, avg 64% x 12 meals on Heart healthy/CCHO diet plus 50% x 9 ONS likely meeting minimum nutrient needs. LBM 08/11, receiving routine bowel care though pt sometimes refuses. Will continue to follow and make recommendations as appropriate pending further trends in PO intake. Recs: 1. Continue Heart healthy/SB6 diet with thin liquids per ST recs 2. Ensure Enlive BIDBD 3. Routine bowel care 4. Scaled weight this admit; weekly scaled weights thereafter Addendum: 08/14/21 at [address] Amended: Links added.
[2021-08-14] MEDS ORDERED: fentaNYL/PF 50MCG/1 ML 2ML syringe ONE ×2 (14:21→14:35)
--- NOTE | 2021-08-14 18:41 | NUR ---
Problems reprioritized. Patient report given, questions answered & plan of care reviewed with Debra OCPPOLA.
[2021-08-14] MEDS: insulin glargine (Lantus) pen - multi-dose SQ SCH (21:00)
[2021-08-14] MEDS: atorvastatin 20mg tablet PO SCH (21:43)
[2021-08-14] MEDS: enoxaparin 40mg/0.4ml syringe SQ SCH (21:48)
[2021-08-15] VITALS: BP 119/59
[2021-08-15] MEDS: HYDROcodone/acetaminophen 5mg/325mg tablet PO PRN ×4 (00:55→21:07)
[2021-08-15] MEDS: NORMAL SALINE IV SCH ×3 (05:30→21:03)
[2021-08-15] MEDS: CEFTAROLINE IV SCH ×3 (05:30→21:03)
[2021-08-15 07:00] VITALS: BP 119/70
--- NOTE | 2021-08-15 07:02 | NUR ---
Patient in room [facility]. I have received report from Debra COPPOLA and had the opportunity to ask questions and assume patient care.
[2021-08-15] MEDS: aspirin 81mg tab.chew PO SCH (07:13)
[2021-08-15] MEDS: thiamine 100mg tablet PO SCH (07:13)
[2021-08-15] MEDS: folic acid 1mg tablet PO SCH (07:13)
[2021-08-15] MEDS: lactobacillus rhamnosus 10,000 MMU CELLS/CAPSULE PO SCH ×2 (07:13→21:04)
[2021-08-15] MEDS: levetiracetam 250mg tablet PO SCH ×2 (07:13→21:04)
[2021-08-15] MEDS: magnesium hydroxide 30ml (MOM) UD suspension PO SCH ×2 (07:14→21:04)
[2021-08-15] MEDS: docusate sod 100mg capsule PO SCH ×2 (07:14→21:04)
[2021-08-15] MEDS: nystatin 15 GM powder TP SCH ×3 (08:00→21:00)
[2021-08-15] MEDS: K and/or MAG REPLACEMENT MC SCH ×2 (08:00→20:00)
[2021-08-15 08:13] LABS: BASOPHILS % (AUTO) 0.4 % (0-1); EOSINOPHILS # (AUTO) 0.4 X10'3 (0-0.9); HEMATOCRIT 26.6 % (42.0-52.0); HEMOGLOBIN 9.2 g/dl (14.0-17.9); LYMPHOCYTES # (AUTO) 0.9 X10'3 (1.1-4.8); LYMPHOCYTES % (AUTO) 15.3 % (21-51); MEAN CORPUSCULAR HEMOGLOBIN 31.5 PG (27.0-31.0); MEAN CORPUSCULAR HGB CONC 34.4 g/dL (33.0-36.5); MEAN CORPUSCULAR VOLUME 91.5 FL (78-98); MEAN PLATELET VOLUME 7.3 FL (7.4-10.4); MONOCYTES # (AUTO) 0.3 X10'3 (0-0.9); MONOCYTES % (AUTO) 5.1 % (2-12); NEUTROPHILS # (AUTO) 4.2 X10'3 (1.8-7.7); NEUTROPHILS % (AUTO) 72.2 % (42-75); PLATELET COUNT 284 X10'3 (140-440); RED CELL DISTRIBUTION WIDTH 13.8 % (11.5-14.5); WHITE BLOOD COUNT 5.8 X10'3 (4.5-11.0)
[2021-08-15] MEDS: normal saline 1000ml 1,000 ML IV SCH ×2 (09:00→11:36)
[2021-08-15 12:00] VITALS: BP 120/72
[2021-08-15] MEDS: lactose-reduced food (Ensure Enlive) - 237ml bottle PO SCH (17:51)
[2021-08-15 18:00] VITALS: BP 134/59
--- NOTE | 2021-08-15 18:35 | NUR ---
Problems reprioritized. Patient report given, questions answered & plan of care reviewed with Diego COPPOLA.
[2021-08-15] MEDS: insulin glargine (Lantus) pen - multi-dose SQ SCH (21:00)
[2021-08-15] MEDS: atorvastatin 20mg tablet PO SCH (21:04)
[2021-08-15] MEDS: enoxaparin 40mg/0.4ml syringe SQ SCH (21:05)
--- NOTE | 2021-08-16 03:51 | NUR ---
Patient in room [facility]. I have received report from Leeanna COPPOLA and had the opportunity to ask questions and assume patient care.
[2021-08-16] MEDS: NORMAL SALINE IV SCH ×2 (03:58→12:21)
[2021-08-16] MEDS: CEFTAROLINE IV SCH ×2 (03:58→12:21)
[2021-08-16] MEDS: HYDROcodone/acetaminophen 5mg/325mg tablet PO PRN ×2 (04:31→08:52)
[2021-08-16 06:30] VITALS: BP 129/68
--- NOTE | 2021-08-16 06:45 | NUR ---
Patient in room [facility]. I have received report from ANAT BARRY and had the opportunity to ask questions and assume patient care.
[2021-08-16] MEDS: lactose-reduced food (Ensure Enlive) - 237ml bottle PO SCH ×2 (07:47→17:53)
[2021-08-16] MEDS: K and/or MAG REPLACEMENT MC SCH (07:47)
[2021-08-16] MEDS ORDERED: nystatin 15 GM powder TP SCH (08:00)
[2021-08-16] MEDS: magnesium hydroxide 30ml (MOM) UD suspension PO SCH (08:45)
[2021-08-16] MEDS: aspirin 81mg tab.chew PO SCH (08:45)
[2021-08-16] MEDS: thiamine 100mg tablet PO SCH (08:45)
[2021-08-16] MEDS: levetiracetam 250mg tablet PO SCH (08:45)
[2021-08-16] MEDS: lactobacillus rhamnosus 10,000 MMU CELLS/CAPSULE PO SCH (08:46)
[2021-08-16] MEDS: folic acid 1mg tablet PO SCH (08:46)
[2021-08-16] MEDS: docusate sod 100mg capsule PO SCH (08:47)
[2021-08-16 11:00] VITALS: BP 125/65
--- NOTE | 2021-08-16 18:40 | NUR ---
Problems reprioritized. Patient report given, questions answered & plan of care reviewed with ANAT Brice.
== END 2021-08-16 19:47 | DRG 720 ==
LOC: ER 05:02 → ED HOLD 07:56 → PCU 3S 07-22 08:30 → SUR 3N 08-08 19:29
PROVIDERS: ADMIT Family Medicine; ATTEND Family Medicine
PROC: B32T1ZZ Computerized Tomography (CT Scan) of Left Pulmonary Artery using Low Osmolar Contrast (ICD-10-PCS; 2021-07-23)
PROC: B3201ZZ Computerized Tomography (CT Scan) of Thoracic Aorta using Low Osmolar Contrast (ICD-10-PCS; 2021-07-23)
PROC: B32S1ZZ Computerized Tomography (CT Scan) of Right Pulmonary Artery using Low Osmolar Contrast (ICD-10-PCS; 2021-07-23)
PROC: BR201ZZ Computerized Tomography (CT Scan) of Cervical Spine using Low Osmolar Contrast (ICD-10-PCS; 2021-08-07)
PROC: BR271ZZ Computerized Tomography (CT Scan) of Thoracic Spine using Low Osmolar Contrast (ICD-10-PCS; 2021-08-07)
PROC: 0K9P30Z Drainage of Left Hip Muscle with Drainage Device, Percutaneous Approach (ICD-10-PCS; principal; 2021-08-08)
PROC: 0K9P30Z Drainage of Left Hip Muscle with Drainage Device, Percutaneous Approach (ICD-10-PCS; 2021-08-14)
DX: A41.02 Sepsis due to Methicillin resistant Staphylococcus aureus (principal); E43 Unspecified severe protein-calorie malnutrition; G92.9 Unspecified toxic encephalopathy; K68.12 Psoas muscle abscess; M62.82 Rhabdomyolysis; E87.1 Hypo-osmolality and hyponatremia; T85.618A Breakdown (mechanical) of other specified internal prosthetic devices, implants and grafts, initial encounter; Y84.8 Other medical procedures as the cause of abnormal reaction of the patient, or of later complication, without mention of misadventure at the time of the procedure; E87.6 Hypokalemia; F15.13 Other stimulant abuse with withdrawal; M79.81 Nontraumatic hematoma of soft tissue; M46.46 Discitis, unspecified, lumbar region; M46.44 Discitis, unspecified, thoracic region; F10.239 Alcohol dependence with withdrawal, unspecified; R06.2 Wheezing; Z20.822 Contact with and (suspected) exposure to COVID-19; M46.26 Osteomyelitis of vertebra, lumbar region; E78.5 Hyperlipidemia, unspecified; L27.1 Localized skin eruption due to drugs and medicaments taken internally; T36.8X5A Adverse effect of other systemic antibiotics, initial encounter; Y92.238 Other place in hospital as the place of occurrence of the external cause; F17.210 Nicotine dependence, cigarettes, uncomplicated; G40.909 Epilepsy, unspecified, not intractable, without status epilepticus; Z88.1 Allergy status to other antibiotic agents; Z86.73 Personal history of transient ischemic attack (TIA), and cerebral infarction without residual deficits; Z68.28 Body mass index [BMI] 28.0-28.9, adult
CPT/HCPCS: 36415; 36573; 36600; 49406; 49423; 70450; 71045; 71275; 72125; 72128; 72131; 74177; 75989; 80053; 80061; 80074; 80202; 80305; 80320; 81001; 81003; 82140; 82150; 82550; 82803; 82948; 83036; 83605; 83690; 83735; 83874; 83880; 84100; 84145; 84484; 85007; 85018; 85025; 85379; 85610; 85651; 86140; 86703; 87040; 87070; 87077; 87081; 87186; 87635; 92508; 92616; 93005; 93308; 93970; 93971; 94640; 94760; 97110; 97112; 97116; 97161; 97530; 97535; 99152; 99153; 99285; G0378; J0131; J0456; J0696; J0712; J1630; J1650; J1815; J2060; J2250; J2405; J2543; J2930; J3010; J3370; J3411; J3480; J3490; J7030; Q0163; Q9967; U0003; U0005

== ENCOUNTER 2024-11-08 14:58 | Inpatient (IN) | payer MEDICAID ==
[~2024-11-08] VITALS: Ht 195.6 cm; Wt 84.3 kg
[~2024-11-08 14:58] MED LIST: ASPI-10 PO; ATOR40TA PO; FOLI0.4T6 PO; KEP500T PO
[2024-11-08 20:53] LABS: BASOPHILS % (AUTO) 0.6 % (0-1); EOSINOPHILS # (AUTO) 0.1 X10'3 (0-0.9); EOSINOPHILS % (AUTO) 1.5 % (0-6); HEMATOCRIT 42.8 % (42.0-52.0); HEMOGLOBIN 14.4 g/dl (14.0-17.9); LYMPHOCYTES # (AUTO) 1.4 X10'3 (1.1-4.8); LYMPHOCYTES % (AUTO) 18.7 % (21-51); MEAN CORPUSCULAR HEMOGLOBIN 31.1 PG (27.0-31.0); MEAN CORPUSCULAR HGB CONC 33.7 g/dL (33.0-36.5); MEAN CORPUSCULAR VOLUME 92.5 FL (78-98); MEAN PLATELET VOLUME 8.4 FL (7.4-10.4); MONOCYTES # (AUTO) 0.5 X10'3 (0-0.9); NEUTROPHILS # (AUTO) 5.6 X10'3 (1.8-7.7); NEUTROPHILS % (AUTO) 73.2 % (42-75); PLATELET COUNT 273 X10'3 (140-440); RED BLOOD COUNT 4.63 X10'6 (4.70-6.10); WHITE BLOOD COUNT 7.6 X10'3 (4.5-11.0)
[2024-11-08 21:02] LABS: ALBUMIN 3.5 G/DL (3.4-5.0); ANION GAP 6 (8-16); BLOOD UREA NITROGEN 20 MG/DL (7-18); BUN/CREATININE RATIO 20.8 (10.0-20.0); CALCIUM 9.5 MG/DL (8.5-10.1); CHLORIDE 105 MMOL/L (99-107); CREATININE 0.96 MG/DL (0.60-1.10); GLUCOSE 96 MG/DL (70-104); POTASSIUM 4.6 MMOL/L (3.5-5.1); SODIUM 141 MMOL/L (135-145); TOTAL CARBON DIOXIDE 30.1 MMOL/L (24-32); eCRCL 91 ML/MIN; eGFR 80 ML/MIN
[2024-11-08 21:06] LABS: APTT 27 SECONDS (22-32); INR 1.1 INR; PROTHROMBIN TIME 11.5 SECONDS (9.0-12.0)
[2024-11-09] MEDS ORDERED: magnesium sulf-water 2g/50mL 50 ML IV PRN (03:00)
[2024-11-09] MEDS ORDERED: potassium Cl 40MEQ/1/2NS 520ml 520 ML IV PRN (03:00)
[2024-11-09] MEDS ORDERED: mag hydrox/Alum hydrox/simeth 30ml oral suspension PO PRN (03:00)
[2024-11-09] MEDS ORDERED: ondansetron/PF 4mg/2ml inj IV PRN (03:00)
[2024-11-09] MEDS ORDERED: magnesium hydroxide 30ml (MOM) UD suspension PO PRN (03:00)
[2024-11-09] MEDS ORDERED: potassium Cl 20 mEq SR tablet PO PRN ×2 (03:00)
[2024-11-09] MEDS ORDERED: magnesium sulf-water 4G/100mL 100 ML IV PRN (03:00)
[2024-11-09] MEDS: normal saline 1000ml 1,000 ML IV SCH (03:00)
[2024-11-09] MEDS ORDERED: magnesium Cl slow-release 64mg tablet PO PRN (03:00)
[2024-11-09 03:50] LABS: MAGNESIUM 1.9 MG/DL (1.5-2.4)
[2024-11-09] MEDS: aspirin 325mg tablet, delayed-release (Ecotrin) PO SCH (08:00)
[2024-11-09] MEDS: docusate sod 100mg capsule PO SCH (08:00)
[2024-11-09] MEDS: folic acid 0.4mg tablet PO SCH (08:00)
[2024-11-09] MEDS: K and/or MAG REPLACEMENT MC SCH (08:00)
[2024-11-09] MEDS: atorvastatin 20mg tablet PO SCH (08:00)
[2024-11-09] MEDS: heparin, porcine 5000 units/ml vial SQ SCH (08:00)
[2024-11-09] MEDS: levetiracetam 250mg tablet PO SCH (08:00)
[2024-11-09 10:00] VITALS: BP 133/68; PULSE 58; RESP 18; TEMP 97.3; O2SAT 98
[2024-11-09 11:00] VITALS: RESP 16; O2SAT 95
[2024-11-09] MEDS ORDERED: LEVE750T PO (13:59)
[2024-11-09] MEDS ORDERED: ROSU10TA72 PO (13:59)
[2024-11-09 18:00] VITALS: BP 113/65; PULSE 90; RESP 16; TEMP 97.8; O2SAT 98
[2024-11-09 20:00] VITALS: RESP 16; O2SAT 98
[2024-11-09 22:00] VITALS: BP 115/64; PULSE 75; RESP 18; TEMP 98; O2SAT 95
[2024-11-10 03:48] VITALS: O2SAT 98
[2024-11-10 04:20] LABS: BASOPHILS # (AUTO) 0.1 X10'3 (0-0.2); BASOPHILS % (AUTO) 0.9 % (0-1); EOSINOPHILS # (AUTO) 0.3 X10'3 (0-0.9); EOSINOPHILS % (AUTO) 5.1 % (0-6); HEMATOCRIT 41.8 % (42.0-52.0); HEMOGLOBIN 14.3 g/dl (14.0-17.9); LYMPHOCYTES # (AUTO) 1.6 X10'3 (1.1-4.8); LYMPHOCYTES % (AUTO) 28.1 % (21-51); MEAN CORPUSCULAR HEMOGLOBIN 31.5 PG (27.0-31.0); MEAN CORPUSCULAR HGB CONC 34.2 g/dL (33.0-36.5); MEAN PLATELET VOLUME 8.8 FL (7.4-10.4); MONOCYTES # (AUTO) 0.5 X10'3 (0-0.9); MONOCYTES % (AUTO) 9.3 % (2-12); NEUTROPHILS # (AUTO) 3.2 X10'3 (1.8-7.7); NEUTROPHILS % (AUTO) 56.6 % (42-75); PLATELET COUNT 243 X10'3 (140-440); RED BLOOD COUNT 4.54 X10'6 (4.70-6.10); RED CELL DISTRIBUTION WIDTH 13.3 % (11.5-14.5); WHITE BLOOD COUNT 5.6 X10'3 (4.5-11.0)
[2024-11-10 04:34] LABS: ALANINE AMINOTRANSFERASE 21 U/L (12-78); ALBUMIN 3.3 G/DL (3.4-5.0); ALBUMIN/GLOBULIN RATIO 0.7 (1.1-1.5); ALKALINE PHOSPHATASE 62 IU/L (46-116); ANION GAP 10 (8-16); ASPARTATE AMINO TRANSFERASE 17 U/L (10-37); BILIRUBIN,TOTAL 0.4 MG/DL (0.1-1.0); BLOOD UREA NITROGEN 25 MG/DL (7-18); BUN/CREATININE RATIO 26.3 (10.0-20.0); CALCIUM 9.1 MG/DL (8.5-10.1); CHLORIDE 103 MMOL/L (99-107); CREATININE 0.95 MG/DL (0.60-1.10); GLUCOSE 110 MG/DL (70-104); POTASSIUM 4.1 MMOL/L (3.5-5.1); SODIUM 139 MMOL/L (135-145); TOTAL CARBON DIOXIDE 26.2 MMOL/L (24-32); TOTAL PROTEIN 7.9 G/DL (6.4-8.2); eCRCL 100 ML/MIN; eGFR 81 ML/MIN
[2024-11-10 05:00] VITALS: BP 116/71; PULSE 72; RESP 16; TEMP 98.3; O2SAT 16
[2024-11-10 08:00] VITALS: RESP 18; O2SAT 96
[2024-11-10 11:00] VITALS: BP 99/63; PULSE 69; RESP 18; TEMP 98; O2SAT 98
[2024-11-10 20:00] VITALS: RESP 18; O2SAT 94
[2024-11-11 04:54] LABS: BASOPHILS % (AUTO) 0.9 % (0-1); EOSINOPHILS # (AUTO) 0.2 X10'3 (0-0.9); EOSINOPHILS % (AUTO) 4.4 % (0-6); HEMATOCRIT 40.6 % (42.0-52.0); HEMOGLOBIN 14.1 g/dl (14.0-17.9); LYMPHOCYTES # (AUTO) 1.4 X10'3 (1.1-4.8); LYMPHOCYTES % (AUTO) 28.2 % (21-51); MEAN CORPUSCULAR HEMOGLOBIN 32.1 PG (27.0-31.0); MEAN CORPUSCULAR HGB CONC 34.7 g/dL (33.0-36.5); MEAN CORPUSCULAR VOLUME 92.5 FL (78-98); MEAN PLATELET VOLUME 8.4 FL (7.4-10.4); MONOCYTES # (AUTO) 0.4 X10'3 (0-0.9); MONOCYTES % (AUTO) 8.4 % (2-12); NEUTROPHILS % (AUTO) 58.1 % (42-75); PLATELET COUNT 237 X10'3 (140-440); RED BLOOD COUNT 4.39 X10'6 (4.70-6.10); RED CELL DISTRIBUTION WIDTH 13.1 % (11.5-14.5); WHITE BLOOD COUNT 5.1 X10'3 (4.5-11.0)
[2024-11-11 05:12] LABS: ALANINE AMINOTRANSFERASE 23 U/L (12-78); ALBUMIN 3.3 G/DL (3.4-5.0); ALBUMIN/GLOBULIN RATIO 0.7 (1.1-1.5); ALKALINE PHOSPHATASE 58 IU/L (46-116); ANION GAP 10 (8-16); ASPARTATE AMINO TRANSFERASE 10 U/L (10-37); BILIRUBIN,TOTAL 0.4 MG/DL (0.1-1.0); BLOOD UREA NITROGEN 24 MG/DL (7-18); BUN/CREATININE RATIO 27.6 (10.0-20.0); CHLORIDE 105 MMOL/L (99-107); CREATININE 0.87 MG/DL (0.60-1.10); GLUCOSE 110 MG/DL (70-104); MAGNESIUM 1.8 MG/DL (1.5-2.4); POTASSIUM 4.1 MMOL/L (3.5-5.1); SODIUM 140 MMOL/L (135-145); TOTAL CARBON DIOXIDE 25.3 MMOL/L (24-32); TOTAL PROTEIN 7.8 G/DL (6.4-8.2); eCRCL 109 ML/MIN; eGFR 90 ML/MIN
[2024-11-11 06:00] VITALS: BP 98/61; PULSE 70; RESP 18; TEMP 98.1; O2SAT 96
[2024-11-11 08:00] VITALS: RESP 18; O2SAT 96
[2024-11-11 18:00] VITALS: BP 106/72; PULSE 55; RESP 14; TEMP 98.1; O2SAT 95
[2024-11-11 20:00] VITALS: RESP 15
[2024-11-11 22:00] VITALS: BP 92/54; PULSE 71; RESP 14; TEMP 98; O2SAT 92
[2024-11-12 06:00] VITALS: BP 143/86; PULSE 88; RESP 14; TEMP 98.5; O2SAT 95
[2024-11-12 08:28] VITALS: RESP 16
[2024-11-12 08:49] LABS: EOSINOPHILS # (AUTO) 0.2 X10'3 (0-0.9); EOSINOPHILS % (AUTO) 3.9 % (0-6); HEMATOCRIT 40.7 % (42.0-52.0); HEMOGLOBIN 13.7 g/dl (14.0-17.9); LYMPHOCYTES # (AUTO) 1.4 X10'3 (1.1-4.8); LYMPHOCYTES % (AUTO) 29.1 % (21-51); MEAN CORPUSCULAR HEMOGLOBIN 31.3 PG (27.0-31.0); MEAN CORPUSCULAR HGB CONC 33.7 g/dL (33.0-36.5); MEAN CORPUSCULAR VOLUME 92.6 FL (78-98); MEAN PLATELET VOLUME 8.5 FL (7.4-10.4); MONOCYTES # (AUTO) 0.4 X10'3 (0-0.9); MONOCYTES % (AUTO) 7.6 % (2-12); NEUTROPHILS # (AUTO) 2.9 X10'3 (1.8-7.7); NEUTROPHILS % (AUTO) 58.4 % (42-75); PLATELET COUNT 225 X10'3 (140-440); RED BLOOD COUNT 4.39 X10'6 (4.70-6.10); RED CELL DISTRIBUTION WIDTH 13.2 % (11.5-14.5)
[2024-11-12 09:39] LABS: ALANINE AMINOTRANSFERASE 19 U/L (12-78); ALBUMIN 3.3 G/DL (3.4-5.0); ALBUMIN/GLOBULIN RATIO 0.8 (1.1-1.5); ALKALINE PHOSPHATASE 56 IU/L (46-116); ANION GAP 7 (8-16); ASPARTATE AMINO TRANSFERASE 21 U/L (10-37); BILIRUBIN,TOTAL 0.4 MG/DL (0.1-1.0); BLOOD UREA NITROGEN 24 MG/DL (7-18); BUN/CREATININE RATIO 25.5 (10.0-20.0); CALCIUM 8.8 MG/DL (8.5-10.1); CHLORIDE 106 MMOL/L (99-107); CREATININE 0.94 MG/DL (0.60-1.10); GLUCOSE 103 MG/DL (70-104); MAGNESIUM 1.9 MG/DL (1.5-2.4); POTASSIUM 4.4 MMOL/L (3.5-5.1); SODIUM 140 MMOL/L (135-145); TOTAL CARBON DIOXIDE 26.9 MMOL/L (24-32); TOTAL PROTEIN 7.5 G/DL (6.4-8.2); eCRCL 101 ML/MIN; eGFR 82 ML/MIN
[2024-11-12 10:00] VITALS: BP 104/63; PULSE 81; RESP 12; TEMP 97.9; O2SAT 95
[2024-11-12 18:00] VITALS: BP 158/99; PULSE 77; RESP 18; TEMP 97.4; O2SAT 92
[2024-11-12] MEDS ORDERED: iohexol 350MG/ML 100ml bottle IV ONE (18:45)
[2024-11-12 20:00] VITALS: RESP 16; O2SAT 94
[2024-11-12 22:00] VITALS: BP 106/65; PULSE 69; RESP 20; TEMP 97.8; O2SAT 95
[2024-11-13 06:00] VITALS: BP 118/70; PULSE 73; RESP 18; TEMP 98; O2SAT 99
[2024-11-13 06:43] LABS: BASOPHILS % (AUTO) 0.5 % (0-1); EOSINOPHILS # (AUTO) 0.3 X10'3 (0-0.9); EOSINOPHILS % (AUTO) 4.2 % (0-6); HEMATOCRIT 39.7 % (42.0-52.0); HEMOGLOBIN 13.6 g/dl (14.0-17.9); LYMPHOCYTES # (AUTO) 1.8 X10'3 (1.1-4.8); LYMPHOCYTES % (AUTO) 30.1 % (21-51); MEAN CORPUSCULAR HEMOGLOBIN 31.6 PG (27.0-31.0); MEAN CORPUSCULAR HGB CONC 34.2 g/dL (33.0-36.5); MEAN CORPUSCULAR VOLUME 92.5 FL (78-98); MEAN PLATELET VOLUME 8.9 FL (7.4-10.4); MONOCYTES # (AUTO) 0.5 X10'3 (0-0.9); MONOCYTES % (AUTO) 7.9 % (2-12); NEUTROPHILS # (AUTO) 3.5 X10'3 (1.8-7.7); NEUTROPHILS % (AUTO) 57.3 % (42-75); PLATELET COUNT 221 X10'3 (140-440); RED BLOOD COUNT 4.29 X10'6 (4.70-6.10); RED CELL DISTRIBUTION WIDTH 13.2 % (11.5-14.5); WHITE BLOOD COUNT 6.1 X10'3 (4.5-11.0)
[2024-11-13 06:46] LABS: ALANINE AMINOTRANSFERASE 19 U/L (12-78); ALBUMIN 3.4 G/DL (3.4-5.0); ALBUMIN/GLOBULIN RATIO 0.8 (1.1-1.5); ALKALINE PHOSPHATASE 59 IU/L (46-116); ANION GAP 8 (8-16); ASPARTATE AMINO TRANSFERASE 8 U/L (10-37); BILIRUBIN,TOTAL 0.4 MG/DL (0.1-1.0); BLOOD UREA NITROGEN 22 MG/DL (7-18); BUN/CREATININE RATIO 24.4 (10.0-20.0); CALCIUM 9.1 MG/DL (8.5-10.1); CHLORIDE 105 MMOL/L (99-107); GLUCOSE 101 MG/DL (70-104); MAGNESIUM 1.9 MG/DL (1.5-2.4); POTASSIUM 4.3 MMOL/L (3.5-5.1); SODIUM 141 MMOL/L (135-145); TOTAL CARBON DIOXIDE 27.8 MMOL/L (24-32); TOTAL PROTEIN 7.5 G/DL (6.4-8.2); eCRCL 105 ML/MIN; eGFR 86 ML/MIN
[2024-11-13 08:00] VITALS: RESP 16; O2SAT 98
[2024-11-13 10:42] VITALS: BP 108/64; PULSE 85; RESP 16; TEMP 97.3; O2SAT 97
[2024-11-13 18:40] VITALS: BP 103/69; PULSE 71; RESP 16; TEMP 97.8; O2SAT 94
[2024-11-13 22:00] VITALS: BP 98/60; PULSE 62; RESP 16; TEMP 98.3; O2SAT 95
[2024-11-14 06:00] VITALS: BP 101/67; PULSE 62; RESP 12; TEMP 97.1; O2SAT 95
[2024-11-14 06:18] LABS: BASOPHILS # (AUTO) 0.1 X10'3 (0-0.2); EOSINOPHILS # (AUTO) 0.2 X10'3 (0-0.9); EOSINOPHILS % (AUTO) 3.6 % (0-6); HEMATOCRIT 42.1 % (42.0-52.0); HEMOGLOBIN 14.1 g/dl (14.0-17.9); LYMPHOCYTES # (AUTO) 1.7 X10'3 (1.1-4.8); LYMPHOCYTES % (AUTO) 26.2 % (21-51); MEAN CORPUSCULAR HEMOGLOBIN 31.2 PG (27.0-31.0); MEAN CORPUSCULAR HGB CONC 33.5 g/dL (33.0-36.5); MEAN CORPUSCULAR VOLUME 93.2 FL (78-98); MEAN PLATELET VOLUME 9.1 FL (7.4-10.4); MONOCYTES # (AUTO) 0.5 X10'3 (0-0.9); MONOCYTES % (AUTO) 7.1 % (2-12); NEUTROPHILS # (AUTO) 4.1 X10'3 (1.8-7.7); NEUTROPHILS % (AUTO) 62.1 % (42-75); PLATELET COUNT 236 X10'3 (140-440); RED BLOOD COUNT 4.52 X10'6 (4.70-6.10); RED CELL DISTRIBUTION WIDTH 13.5 % (11.5-14.5); WHITE BLOOD COUNT 6.6 X10'3 (4.5-11.0)
[2024-11-14 06:32] LABS: ALANINE AMINOTRANSFERASE 18 U/L (12-78); ALBUMIN 3.2 G/DL (3.4-5.0); ALBUMIN/GLOBULIN RATIO 0.7 (1.1-1.5); ALKALINE PHOSPHATASE 55 IU/L (46-116); ANION GAP 5 (8-16); BILIRUBIN,TOTAL 0.5 MG/DL (0.1-1.0); BLOOD UREA NITROGEN 21 MG/DL (7-18); BUN/CREATININE RATIO 22.8 (10.0-20.0); CALCIUM 8.5 MG/DL (8.5-10.1); CHLORIDE 107 MMOL/L (99-107); CREATININE 0.92 MG/DL (0.60-1.10); GLUCOSE 104 MG/DL (70-104); SODIUM 138 MMOL/L (135-145); TOTAL PROTEIN 7.8 G/DL (6.4-8.2); eCRCL 103 ML/MIN; eGFR 84 ML/MIN
[2024-11-14 07:05] LABS: ASPARTATE AMINO TRANSFERASE 19 U/L (10-37); POTASSIUM 4.4 MMOL/L (3.5-5.1)
[2024-11-14 08:00] VITALS: RESP 12; O2SAT 95
[2024-11-14 10:00] VITALS: BP 105/64; PULSE 79; RESP 16; TEMP 98; O2SAT 94
[2024-11-14 18:00] VITALS: BP 110/69; PULSE 94; RESP 16; TEMP 97.7; O2SAT 96
[2024-11-14 20:00] VITALS: RESP 16; O2SAT 96
[2024-11-14 22:00] VITALS: BP 101/56; PULSE 78; RESP 12; TEMP 98.1; O2SAT 93
[2024-11-15 06:00] VITALS: BP 117/45; PULSE 67; RESP 13; TEMP 97.5; O2SAT 94
[2024-11-15 08:00] VITALS: RESP 13; O2SAT 94
[2024-11-15 09:43] VITALS: BP 114/73; PULSE 74; RESP 18; TEMP 98.5; O2SAT 95
[2024-11-15] MEDS ORDERED: BUPIVAcaine 2.5mg/ml inj 50ml vial (contains preservative) ONE (12:04)
[2024-11-15 18:00] VITALS: BP 130/80; PULSE 70; RESP 17; TEMP 98; O2SAT 96
[2024-11-15 20:00] VITALS: RESP 16
[2024-11-15 22:00] VITALS: BP 108/66; PULSE 84; RESP 18; TEMP 97.2; O2SAT 94
[2024-11-16 05:29] VITALS: O2SAT 97
[2024-11-16 06:00] VITALS: BP 106/66; PULSE 70; RESP 16; TEMP 97.8; O2SAT 96
[2024-11-16 10:00] VITALS: BP 113/56; PULSE 91; RESP 18; TEMP 97.5; O2SAT 98
[2024-11-16 18:00] VITALS: BP 101/64; PULSE 68; RESP 16; TEMP 98.7; O2SAT 95
[2024-11-16 20:00] VITALS: RESP 18; O2SAT 94
[2024-11-16 22:00] VITALS: BP 106/63; PULSE 68; RESP 18; TEMP 97.9; O2SAT 94
[2024-11-17 06:00] VITALS: BP 114/60; PULSE 74; RESP 14; TEMP 97.9; O2SAT 95
[2024-11-17 09:00] VITALS: RESP 16; O2SAT 96
[2024-11-17 10:00] VITALS: BP 103/68; PULSE 82; RESP 16; TEMP 97.5; O2SAT 96
[2024-11-17 18:00] VITALS: BP 115/64; PULSE 63; RESP 16; TEMP 97.9; O2SAT 93
[2024-11-17 20:00] VITALS: RESP 16; O2SAT 94
[2024-11-17 22:00] VITALS: BP 104/53; PULSE 75; RESP 16; TEMP 98.7; O2SAT 94
[2024-11-18 01:29] VITALS: O2SAT 94
[2024-11-18 08:30] VITALS: RESP 18; O2SAT 95
[2024-11-18 09:45] VITALS: BP 114/61; PULSE 79; RESP 16; TEMP 97.7; O2SAT 94
[2024-11-18 18:00] VITALS: BP 101/62; PULSE 62; RESP 15; TEMP 97.7; O2SAT 93
[2024-11-18 20:00] VITALS: RESP 15; O2SAT 93
[2024-11-18 22:00] VITALS: BP 111/57; PULSE 70; RESP 14; TEMP 98.3; O2SAT 93
[2024-11-19 06:00] VITALS: BP 91/55; PULSE 74; RESP 16; TEMP 98.1; O2SAT 97
[2024-11-19 08:00] VITALS: RESP 18; O2SAT 96
[2024-11-19 10:00] VITALS: BP 126/72; PULSE 82; RESP 18; TEMP 97.8; O2SAT 95
[2024-11-19 18:00] VITALS: BP 102/64; PULSE 72; RESP 16; TEMP 98.7; O2SAT 94
[2024-11-19 20:00] VITALS: RESP 16; O2SAT 94
[2024-11-19 22:00] VITALS: BP 109/63; PULSE 71; RESP 17; TEMP 98.4; O2SAT 94
[2024-11-20] VITALS (7 sets, daily range): BP systolic 87–111; BP diastolic 47–70; PULSE 73–79; RESP 12–16; TEMP 97–98.2; O2SAT 93–98
[2024-11-21 18:00] VITALS: BP 97/56; PULSE 66; RESP 18; TEMP 97.7; O2SAT 96
[2024-11-21 22:00] VITALS: BP 91/49; PULSE 74; RESP 12; TEMP 97.8; O2SAT 92
[2024-11-22 08:00] VITALS: RESP 16; O2SAT 98
[2024-11-22 10:00] VITALS: BP 96/54; PULSE 85; RESP 17; TEMP 97.6; O2SAT 96
[2024-11-22 19:11] VITALS: BP 108/67; PULSE 74; RESP 17; TEMP 97.9; O2SAT 98
[2024-11-22 22:00] VITALS: BP 102/55; PULSE 71; RESP 12; TEMP 98.2; O2SAT 93
[2024-11-23 06:00] VITALS: BP 104/50; PULSE 63; RESP 13; TEMP 97.9; O2SAT 93
[2024-11-23 08:00] VITALS: RESP 13; O2SAT 93
[2024-11-23 18:00] VITALS: BP 101/60; PULSE 83; RESP 16; TEMP 98.2; O2SAT 95
[2024-11-23 20:00] VITALS: RESP 15; O2SAT 93
[2024-11-23 22:00] VITALS: BP 97/58; PULSE 78; RESP 16; TEMP 97.4; O2SAT 94
[2024-11-24 06:00] VITALS: BP 100/71; PULSE 65; RESP 16; TEMP 97.5; O2SAT 96
[2024-11-24 08:00] VITALS: RESP 16; O2SAT 96
[2024-11-24] MEDS: ibuprofen 200mg tablet PO PRN (17:41)
[2024-11-24 18:00] VITALS: BP 116/71; PULSE 96; RESP 18; TEMP 97.6; O2SAT 94
[2024-11-24 22:00] VITALS: BP_SYST 123; BP_SYST 128; BP_DIAS 62; BP_DIAS 70; PULSE 67; RESP 12; RESP 16; TEMP 97.8; O2SAT 96; O2SAT 98
[2024-11-24 22:08] VITALS: RESP 16; O2SAT 94
[2024-11-25 06:00] VITALS: PULSE 62; RESP 18; TEMP 97.5
[2024-11-25] MEDS: acetaminophen 325mg tablet PO PRN (06:24)
[2024-11-25 09:00] VITALS: RESP 18; O2SAT 96
[2024-11-25 10:00] VITALS: BP 120/70; PULSE 75; RESP 16; TEMP 98.4; O2SAT 98
[2024-11-25 18:00] VITALS: BP 109/57; PULSE 64; RESP 16; TEMP 97.5; O2SAT 97
[2024-11-25 20:00] VITALS: RESP 16; O2SAT 97
[2024-11-25 22:00] VITALS: BP 116/56; PULSE 78; RESP 18; TEMP 98.2; O2SAT 94
[2024-11-26 06:58] VITALS: BP 96/57; PULSE 63; RESP 16; TEMP 98.7; O2SAT 94
[2024-11-26 08:04] VITALS: RESP 16
[2024-11-26 12:23] VITALS: BP 109/66; PULSE 80; RESP 20; TEMP 97.6; O2SAT 97
[2024-11-26 18:00] VITALS: BP 96/54; PULSE 64; RESP 20; TEMP 97.9; O2SAT 97
[2024-11-26 20:00] VITALS: RESP 20; O2SAT 95
[2024-11-26 22:00] VITALS: BP 120/71; PULSE 71; RESP 18; TEMP 97.8; O2SAT 93
[2024-11-27] VITALS (7 sets, daily range): BP systolic 103–113; BP diastolic 59–68; PULSE 63–72; RESP 16–18; TEMP 97.2–98; O2SAT 93–98
[2024-11-28] VITALS (8 sets, daily range): BP systolic 98–113; BP diastolic 60–92; PULSE 61–77; RESP 12–16; TEMP 97.6–98.6; O2SAT 92–95
[2024-11-29 06:00] VITALS: BP 100/60; PULSE 67; RESP 13; TEMP 98; O2SAT 96
[2024-11-29 08:00] VITALS: RESP 13; O2SAT 96
[2024-11-29 18:00] VITALS: BP 108/61; PULSE 72; RESP 12; TEMP 97.7; O2SAT 94
[2024-11-29 20:00] VITALS: RESP 15; O2SAT 94
[2024-11-29 22:00] VITALS: BP 107/63; PULSE 69; RESP 15; TEMP 98.5; O2SAT 94
[2024-11-30 06:00] VITALS: BP 109/63; PULSE 74; RESP 16; TEMP 97.5; O2SAT 95
[2024-11-30 08:00] VITALS: RESP 16; O2SAT 95
[2024-11-30 10:23] VITALS: BP 113/63; PULSE 71; RESP 16; TEMP 98.1; O2SAT 97
[2024-11-30 18:00] VITALS: BP 103/72; PULSE 76; RESP 17; TEMP 97.2; O2SAT 97
[2024-11-30 20:00] VITALS: RESP 16; O2SAT 96
[2024-11-30 22:00] VITALS: BP 102/62; PULSE 62; RESP 18; TEMP 97.2; O2SAT 94
[2024-12-01] VITALS (7 sets, daily range): BP systolic 98–140; BP diastolic 56–79; PULSE 65–87; RESP 16–17; TEMP 97.2–98.6; O2SAT 93–97
[2024-12-01 04:59] LABS: BASOPHILS % (AUTO) 0.7 % (0-1); EOSINOPHILS # (AUTO) 0.3 X10'3 (0-0.9); EOSINOPHILS % (AUTO) 4.5 % (0-6); HEMATOCRIT 41.5 % (42.0-52.0); HEMOGLOBIN 14.1 g/dl (14.0-17.9); LYMPHOCYTES % (AUTO) 28.3 % (21-51); MEAN CORPUSCULAR HEMOGLOBIN 31.6 PG (27.0-31.0); MEAN CORPUSCULAR HGB CONC 33.9 g/dL (33.0-36.5); MEAN CORPUSCULAR VOLUME 93.2 FL (78-98); MEAN PLATELET VOLUME 8.2 FL (7.4-10.4); MONOCYTES # (AUTO) 0.5 X10'3 (0-0.9); MONOCYTES % (AUTO) 7.3 % (2-12); NEUTROPHILS # (AUTO) 4.2 X10'3 (1.8-7.7); NEUTROPHILS % (AUTO) 59.2 % (42-75); PLATELET COUNT 241 X10'3 (140-440); RED BLOOD COUNT 4.45 X10'6 (4.70-6.10); RED CELL DISTRIBUTION WIDTH 14.1 % (11.5-14.5); WHITE BLOOD COUNT 7.1 X10'3 (4.5-11.0)
[2024-12-01 05:27] LABS: ALBUMIN 3.4 G/DL (3.4-5.0); ANION GAP 10 (8-16); BLOOD UREA NITROGEN 27 MG/DL (7-18); BUN/CREATININE RATIO 31.8 (10.0-20.0); CALCIUM 9.3 MG/DL (8.5-10.1); CHLORIDE 106 MMOL/L (99-107); CREATININE 0.85 MG/DL (0.60-1.10); GLUCOSE 101 MG/DL (70-104); SODIUM 140 MMOL/L (135-145); TOTAL CARBON DIOXIDE 24.3 MMOL/L (24-32); eCRCL 112 ML/MIN; eGFR > 90 ML/MIN
[2024-12-01 05:29] LABS: POTASSIUM 4.1 MMOL/L (3.5-5.1)
[2024-12-02 07:05] VITALS: BP 103/71; PULSE 78; RESP 16; TEMP 97.3; O2SAT 98
[2024-12-02 10:00] VITALS: BP 110/67; PULSE 65; RESP 16; TEMP 98; O2SAT 94
[2024-12-02 18:00] VITALS: BP 110/62; PULSE 84; RESP 18; TEMP 98.4; O2SAT 96
[2024-12-02 20:00] VITALS: RESP 18; O2SAT 96
[2024-12-03 06:00] VITALS: BP 106/76; PULSE 78; RESP 16; TEMP 98; O2SAT 93
[2024-12-03 08:34] VITALS: RESP 16
[2024-12-03 18:00] VITALS: BP 109/67; PULSE 82; RESP 14; TEMP 97.7; O2SAT 98
[2024-12-03 20:00] VITALS: RESP 14; O2SAT 98
[2024-12-04 07:12] VITALS: BP 95/67; PULSE 67; RESP 20; O2SAT 94
[2024-12-04 19:00] VITALS: BP 108/67; PULSE 69; RESP 16; TEMP 97.1; O2SAT 95
[2024-12-05 06:00] VITALS: BP 115/67; PULSE 74; RESP 16; TEMP 97.9; O2SAT 96
[2024-12-05 20:00] VITALS: O2SAT 95
[2024-12-06 04:40] VITALS: O2SAT 95
[2024-12-06 06:00] VITALS: BP 97/54; PULSE 74; RESP 15; TEMP 98.7; O2SAT 94
[2024-12-06 08:00] VITALS: RESP 15; O2SAT 94
[2024-12-06 18:00] VITALS: BP 117/66; PULSE 89; RESP 18; TEMP 97.2; O2SAT 94
[2024-12-06 22:00] VITALS: BP 113/69; PULSE 79; RESP 13; TEMP 97.5; O2SAT 92
[2024-12-07 03:02] VITALS: O2SAT 92
[2024-12-07 06:33] VITALS: BP 94/51; PULSE 70; RESP 12; TEMP 97.3; O2SAT 93
[2024-12-07 08:46] VITALS: RESP 12; O2SAT 93
[2024-12-07 18:30] VITALS: BP 120/70; PULSE 73; RESP 18; TEMP 98.4; O2SAT 93
[2024-12-07 20:00] VITALS: RESP 18; O2SAT 93
[2024-12-08 08:00] VITALS: RESP 16; O2SAT 98
[2024-12-08] MEDS: amox tr/potassium clavulanate 875/125mg TAB PO SCH (16:40)
[2024-12-08 18:00] VITALS: BP 128/74; PULSE 80; RESP 16; TEMP 98; O2SAT 96
[2024-12-08 20:00] VITALS: RESP 16; O2SAT 96
[2024-12-09 06:59] VITALS: BP 108/68; PULSE 82; RESP 18; TEMP 97.4; O2SAT 92
[2024-12-09 07:45] VITALS: RESP 16
[2024-12-09 18:00] VITALS: BP 104/59; PULSE 87; RESP 16; TEMP 97.8; O2SAT 94
[2024-12-09 20:00] VITALS: RESP 16; O2SAT 94
[2024-12-10 06:00] VITALS: BP 89/62; PULSE 74; RESP 18; TEMP 98; O2SAT 92
[2024-12-10 08:30] VITALS: RESP 16; O2SAT 92
[2024-12-10 18:00] VITALS: BP 134/73; PULSE 78; RESP 16; TEMP 97.2; O2SAT 93
[2024-12-10 20:00] VITALS: RESP 16; O2SAT 93
[2024-12-11 05:00] VITALS: BP 126/81; PULSE 64; RESP 18; TEMP 97.8
[2024-12-11 08:00] VITALS: RESP 18; O2SAT 94
[2024-12-11 18:00] VITALS: BP 136/90; PULSE 84; RESP 20; TEMP 97.4; O2SAT 92
[2024-12-12 01:03] VITALS: O2SAT 92
[2024-12-12 06:00] VITALS: BP 112/70; PULSE 77; RESP 14; TEMP 97; O2SAT 93
[2024-12-12 08:00] VITALS: RESP 16; O2SAT 94
[2024-12-12 18:00] VITALS: BP 111/67; PULSE 87; RESP 18; TEMP 97.9; O2SAT 93
[2024-12-12 20:00] VITALS: RESP 16
[2024-12-12 22:00] VITALS: BP 116/76; PULSE 89; RESP 13; TEMP 98.1; O2SAT 93
[2024-12-13 06:00] VITALS: BP 112/67; PULSE 83; RESP 12; TEMP 97.6; O2SAT 91
[2024-12-13 18:00] VITALS: BP 102/63; PULSE 78; RESP 17; TEMP 97.5; O2SAT 95
[2024-12-14 06:00] VITALS: BP 128/95; PULSE 77; RESP 14; TEMP 98.1; O2SAT 94
[2024-12-14 18:00] VITALS: BP 121/74; PULSE 85; RESP 16; TEMP 98.8; O2SAT 95
[2024-12-15 06:00] VITALS: BP 107/74; PULSE 86; RESP 16; TEMP 97.3; O2SAT 96
[2024-12-15 18:00] VITALS: BP 121/74; PULSE 85; RESP 16; TEMP 98.8; O2SAT 95
[2024-12-16 06:58] VITALS: BP 166/86; PULSE 64; RESP 16; TEMP 97.8; O2SAT 92
[2024-12-16 08:25] VITALS: RESP 16
[2024-12-16 14:30] VITALS: BP 107/73; PULSE 74; RESP 14; TEMP 98.3; O2SAT 93
[2024-12-16 14:37] LABS: BASOPHILS % (AUTO) 0.6 % (0-1); EOSINOPHILS # (AUTO) 0.5 X10'3 (0-0.9); EOSINOPHILS % (AUTO) 8.2 % (0-6); HEMATOCRIT 42.9 % (42.0-52.0); HEMOGLOBIN 14.3 g/dl (14.0-17.9); LYMPHOCYTES # (AUTO) 1.6 X10'3 (1.1-4.8); LYMPHOCYTES % (AUTO) 27.2 % (21-51); MEAN CORPUSCULAR HGB CONC 33.3 g/dL (33.0-36.5); MEAN PLATELET VOLUME 8.2 FL (7.4-10.4); MONOCYTES # (AUTO) 0.4 X10'3 (0-0.9); MONOCYTES % (AUTO) 7.2 % (2-12); NEUTROPHILS # (AUTO) 3.4 X10'3 (1.8-7.7); NEUTROPHILS % (AUTO) 56.8 % (42-75); PLATELET COUNT 207 X10'3 (140-440); RED BLOOD COUNT 4.61 X10'6 (4.70-6.10); RED CELL DISTRIBUTION WIDTH 13.7 % (11.5-14.5)
[2024-12-16 14:41] LABS: ALANINE AMINOTRANSFERASE 50 U/L (12-78); ALBUMIN 3.1 G/DL (3.4-5.0); ALBUMIN/GLOBULIN RATIO 0.6 (1.1-1.5); ALKALINE PHOSPHATASE 56 IU/L (46-116); ANION GAP 8 (8-16); ASPARTATE AMINO TRANSFERASE 27 U/L (10-37); BILIRUBIN,TOTAL 0.3 MG/DL (0.1-1.0); BLOOD UREA NITROGEN 25 MG/DL (7-18); BUN/CREATININE RATIO 23.1 (10.0-20.0); CALCIUM 8.6 MG/DL (8.5-10.1); CHLORIDE 103 MMOL/L (99-107); CREATININE 1.08 MG/DL (0.60-1.10); GLUCOSE 114 MG/DL (70-104); POTASSIUM 4.2 MMOL/L (3.5-5.1); SODIUM 139 MMOL/L (135-145); TOTAL CARBON DIOXIDE 27.9 MMOL/L (24-32); TOTAL PROTEIN 7.9 G/DL (6.4-8.2); eCRCL 87 ML/MIN; eGFR 70 ML/MIN
[2024-12-16 20:00] VITALS: BP 116/76; PULSE 78; RESP 18; TEMP 97.9; O2SAT 94; O2SAT 97
[2024-12-17 06:00] VITALS: BP 93/65; PULSE 66; RESP 14; TEMP 98.5; O2SAT 98
[2024-12-17 08:00] VITALS: RESP 14; O2SAT 99
[2024-12-17 09:40] VITALS: RESP 16
[2024-12-17 16:37] VITALS: BP 117/58; PULSE 75; RESP 12; TEMP 97.9; O2SAT 95
[2024-12-17 20:00] VITALS: RESP 12; O2SAT 95
[2024-12-18 08:00] VITALS: RESP 16
[2024-12-18 09:08] VITALS: RESP 16
[2024-12-18 11:02] VITALS: BP 101/56; PULSE 93; RESP 15; TEMP 97.8; O2SAT 94
[2024-12-18 18:00] VITALS: BP 104/64; PULSE 67; RESP 16; TEMP 98.2; O2SAT 96
[2024-12-18 20:00] VITALS: RESP 18; O2SAT 98
[2024-12-18 22:00] VITALS: BP 106/65; PULSE 65; RESP 13; TEMP 98.3; O2SAT 93
[2024-12-19 06:00] VITALS: BP 142/63; PULSE 85; RESP 16; TEMP 97.8; O2SAT 91
[2024-12-19 08:00] VITALS: RESP 16; O2SAT 91
[2024-12-19 18:00] VITALS: BP 114/67; PULSE 81; RESP 18; TEMP 97.9; O2SAT 95
[2024-12-19 20:10] VITALS: RESP 16
[2024-12-20 06:00] VITALS: BP 108/73; PULSE 83; RESP 13; TEMP 96.8; O2SAT 96
[2024-12-20 08:00] VITALS: RESP 13; O2SAT 96
[2024-12-20 18:00] VITALS: BP 100/64; PULSE 86; RESP 17; TEMP 97.2; O2SAT 92
[2024-12-20 20:00] VITALS: RESP 18
[2024-12-21 06:00] VITALS: BP 113/90; PULSE 60; RESP 12; TEMP 96.8; O2SAT 93
[2024-12-21 18:00] VITALS: BP 104/62; PULSE 107; RESP 16; TEMP 98.1; O2SAT 95
[2024-12-21 19:30] VITALS: RESP 16; O2SAT 95
[2024-12-22 06:45] VITALS: BP 101/60; PULSE 94; RESP 16; TEMP 98; O2SAT 95
[2024-12-22 08:30] VITALS: RESP 16
[2024-12-22 18:00] VITALS: BP 100/63; PULSE 78; RESP 16; TEMP 98.1; O2SAT 93
[2024-12-22 20:00] VITALS: RESP 16
[2024-12-23 08:00] VITALS: RESP 14; O2SAT 96
[2024-12-23 18:00] VITALS: BP 111/64; PULSE 69; RESP 18; TEMP 98; O2SAT 93
[2024-12-23 20:00] VITALS: RESP 18; O2SAT 96
[2024-12-24 06:00] VITALS: BP 94/54; PULSE 78; RESP 12; TEMP 97.7; O2SAT 93
[2024-12-24 08:00] VITALS: RESP 12; O2SAT 93
[2024-12-24 18:00] VITALS: BP 114/64; PULSE 66; RESP 18; TEMP 98; O2SAT 98
[2024-12-24 20:00] VITALS: RESP 18; O2SAT 98
[2024-12-24 23:25] VITALS: RESP 18; O2SAT 98
[2024-12-25 06:00] VITALS: BP 110/68; PULSE 74; RESP 20; O2SAT 95
[2024-12-25 10:00] VITALS: BP 107/72; PULSE 75; RESP 16; TEMP 97.9; O2SAT 93
[2024-12-25 22:00] VITALS: BP 108/62; PULSE 68; RESP 14; TEMP 97.3; O2SAT 93
[2024-12-26 06:00] VITALS: BP 108/70; PULSE 74; RESP 13; TEMP 97.9; O2SAT 93
[2024-12-26 08:00] VITALS: RESP 13; O2SAT 93
[2024-12-26 10:00] VITALS: BP 114/69; PULSE 74; RESP 18; TEMP 97.5; O2SAT 95
[2024-12-26 18:00] VITALS: BP 111/68; PULSE 86; RESP 18; TEMP 98; O2SAT 93
[2024-12-26 22:43] VITALS: O2SAT 93
[2024-12-27 06:00] VITALS: BP 93/57; PULSE 84; RESP 16; TEMP 97.9; O2SAT 92
[2024-12-27 18:00] VITALS: BP 101/51; PULSE 81; RESP 16; TEMP 98; O2SAT 94
[2024-12-27 20:00] VITALS: RESP 16; O2SAT 96
[2024-12-27 22:00] VITALS: BP 108/67; PULSE 78; RESP 18; TEMP 97.6; O2SAT 99
[2024-12-28 06:00] VITALS: BP 117/68; PULSE 89; RESP 14; TEMP 97.1; O2SAT 98
[2024-12-28 08:00] VITALS: RESP 14; O2SAT 98
[2024-12-28 18:00] VITALS: BP 113/67; PULSE 80; RESP 17; TEMP 97.3; O2SAT 93
[2024-12-28 20:00] VITALS: RESP 18; O2SAT 98
[2024-12-29 06:00] VITALS: BP 94/52; PULSE 57; RESP 18; TEMP 97.8; O2SAT 96
[2024-12-29 11:19] VITALS: RESP 14; O2SAT 98
[2024-12-29 18:00] VITALS: BP 116/69; PULSE 73; RESP 16; TEMP 98; O2SAT 94
[2024-12-29 20:00] VITALS: RESP 18; O2SAT 96
[2024-12-30 06:00] VITALS: BP 108/77; PULSE 66; RESP 18; TEMP 97.8; O2SAT 94
[2024-12-30 08:00] VITALS: RESP 18; O2SAT 94
[2024-12-30 18:00] VITALS: BP 119/76; PULSE 81; RESP 18; TEMP 97.4; O2SAT 94
[2024-12-30 20:00] VITALS: RESP 18; O2SAT 94
[2024-12-31 08:50] VITALS: RESP 20; O2SAT 92
[2024-12-31 10:24] VITALS: BP 117/74; PULSE 67; RESP 20; TEMP 97.8; O2SAT 92
[2024-12-31 17:00] VITALS: BP 119/69; PULSE 52; RESP 16; TEMP 97.6; O2SAT 95
[2024-12-31 19:00] VITALS: BP 119/69; PULSE 52; RESP 16; TEMP 97.6; O2SAT 95
[2025-01-01] VITALS (7 sets, daily range): BP systolic 112–121; BP diastolic 68–72; PULSE 67–79; RESP 13–16; TEMP 97.5–98.8; O2SAT 92–98
[2025-01-02 08:00] VITALS: RESP 14; O2SAT 98
[2025-01-02 10:01] VITALS: RESP 16
[2025-01-02 18:00] VITALS: BP 132/87; PULSE 95; RESP 20; TEMP 97.4; O2SAT 96
[2025-01-02 20:00] VITALS: RESP 18; O2SAT 95
[2025-01-03 06:00] VITALS: BP 122/77; PULSE 83; RESP 17; TEMP 98.4; O2SAT 93
[2025-01-03 08:00] VITALS: RESP 17; O2SAT 93
[2025-01-03 18:00] VITALS: BP 113/68; PULSE 80; RESP 20; TEMP 97.8; O2SAT 94
[2025-01-03 20:00] VITALS: RESP 18; O2SAT 97
[2025-01-04 06:00] VITALS: BP 100/52; PULSE 74; RESP 16; TEMP 97.9; O2SAT 92
[2025-01-04 08:00] VITALS: RESP 16; O2SAT 94
[2025-01-04 18:00] VITALS: BP 107/62; PULSE 77; RESP 18; TEMP 97.5; O2SAT 92
[2025-01-04 20:00] VITALS: RESP 18; O2SAT 96
[2025-01-05 06:00] VITALS: BP 115/79; PULSE 74; RESP 18; TEMP 97.9; O2SAT 95
[2025-01-05 18:00] VITALS: BP 115/59; PULSE 79; RESP 17; TEMP 97.8; O2SAT 93
[2025-01-05 19:00] VITALS: RESP 17; O2SAT 93
[2025-01-06 06:00] VITALS: BP 135/85; PULSE 88; RESP 16; TEMP 98.6; O2SAT 95
[2025-01-06 13:16] VITALS: RESP 18; O2SAT 98
[2025-01-06 20:00] VITALS: RESP 15; O2SAT 98
[2025-01-08 08:45] VITALS: RESP 16; O2SAT 96
[2025-01-08 18:00] VITALS: BP 116/79; PULSE 81; RESP 16; TEMP 97; O2SAT 92
[2025-01-08 20:00] VITALS: RESP 16; O2SAT 92
[2025-01-09 06:00] VITALS: BP 147/79; PULSE 70; RESP 16; TEMP 98.3; O2SAT 94
[2025-01-09 08:00] VITALS: RESP 16; O2SAT 94
[2025-01-09 08:35] LABS: ALBUMIN 3.1 G/DL (3.4-5.0); ANION GAP 9 (8-16); BLOOD UREA NITROGEN 27 MG/DL (7-18); BUN/CREATININE RATIO 32.9 (10.0-20.0); CALCIUM 8.8 MG/DL (8.5-10.1); CHLORIDE 106 MMOL/L (99-107); CREATININE 0.82 MG/DL (0.60-1.10); GLUCOSE 104 MG/DL (70-104); POTASSIUM 4.1 MMOL/L (3.5-5.1); SODIUM 140 MMOL/L (135-145); TOTAL CARBON DIOXIDE 24.9 MMOL/L (24-32); eCRCL 114 ML/MIN; eGFR > 90 ML/MIN
[2025-01-09 08:39] LABS: BASOPHILS % (AUTO) 0.5 % (0-1); EOSINOPHILS # (AUTO) 0.7 X10'3 (0-0.9); EOSINOPHILS % (AUTO) 10.6 % (0-6); HEMATOCRIT 43.9 % (42.0-52.0); HEMOGLOBIN 14.6 g/dl (14.0-17.9); LYMPHOCYTES # (AUTO) 1.8 X10'3 (1.1-4.8); LYMPHOCYTES % (AUTO) 29.1 % (21-51); MEAN CORPUSCULAR HEMOGLOBIN 30.5 PG (27.0-31.0); MEAN CORPUSCULAR HGB CONC 33.2 g/dL (33.0-36.5); MEAN CORPUSCULAR VOLUME 91.8 FL (78-98); MEAN PLATELET VOLUME 8.4 FL (7.4-10.4); MONOCYTES # (AUTO) 0.5 X10'3 (0-0.9); MONOCYTES % (AUTO) 8.5 % (2-12); NEUTROPHILS # (AUTO) 3.2 X10'3 (1.8-7.7); NEUTROPHILS % (AUTO) 51.3 % (42-75); PLATELET COUNT 212 X10'3 (140-440); RED BLOOD COUNT 4.79 X10'6 (4.70-6.10); RED CELL DISTRIBUTION WIDTH 13.1 % (11.5-14.5); WHITE BLOOD COUNT 6.2 X10'3 (4.5-11.0)
[2025-01-09 10:00] VITALS: BP 119/64; PULSE 65; RESP 14; TEMP 97.5; O2SAT 90
[2025-01-09 18:00] VITALS: BP 134/78; PULSE 88; RESP 16; TEMP 97.4; O2SAT 97
[2025-01-09 20:00] VITALS: RESP 16; O2SAT 97
[2025-01-09 22:00] VITALS: BP 104/66; PULSE 73; RESP 12; TEMP 98.5; O2SAT 91
[2025-01-10 03:36] VITALS: O2SAT 97
[2025-01-10 18:00] VITALS: BP 117/72; PULSE 79; RESP 16; TEMP 97.9; O2SAT 95
[2025-01-10 20:00] VITALS: RESP 16; O2SAT 95
[2025-01-10 22:00] VITALS: BP 105/70; PULSE 68; RESP 12; TEMP 97.7; O2SAT 95
[2025-01-11 10:30] VITALS: BP 140/77; PULSE 68; RESP 17; TEMP 97.3; O2SAT 92
== END 2025-01-11 15:38 | DRG 46 ==
LOC: ER 14:59 → ED HOLD 22:51 → SUR 3N 11-09 09:45
PROVIDERS: ADMIT Internal Medicine Critical Care Medicine; ATTEND Internal Medicine
DX: I65.22 Occlusion and stenosis of left carotid artery (principal); I69.351 Hemiplegia and hemiparesis following cerebral infarction affecting right dominant side; R53.1 Weakness; G40.909 Epilepsy, unspecified, not intractable, without status epilepticus; K05.319 Chronic periodontitis, localized, unspecified severity; E78.5 Hyperlipidemia, unspecified; F15.10 Other stimulant abuse, uncomplicated; Z79.82 Long term (current) use of aspirin; Z59.00 Homelessness unspecified; Z79.899 Other long term (current) drug therapy
CPT/HCPCS: 36415; 80048; 80053; 82948; 83735; 84132; 85025; 85610; 85730; 87081; 93005; 97110; 97116; 97161; 97164; 97530; 97535; 99285; A6258; G0378; J1644; J3490; J7030; Q9967